=== PATIENT | female | born 1940 | race Caucasian/White ===

== ENCOUNTER 2017-07-24 14:46 | Outpatient (POV) | payer MEDICARE, BC, SELFPAY | END 2017-07-24 15:24 | disposition home or self-care (01) | PROVIDERS: Visit Provider Podiatrist | DX: M76.822 Posterior tibial tendinitis, left leg (principal) | CPT/HCPCS: 99212 ==

== ENCOUNTER → 2017-08-28 10:03 | Outpatient (POV) | payer MEDICARE, BC, SELFPAY ==
--- NOTE | 2017-08-28 10:47 | HMH.PAINSOAP ---
[facility] Pain Management SOAP Note Subjective:: This patient is a pleasant 77-year-old white female who we are seeing for neck pain and low back pain with radicular symptoms and previous C3 through C5 ACDF in June 2016. She had a lumbar epidural steroid injection which is helped her tremendously. Her low back is doing very well. She is also on diclofenac 75 mg twice a day which is helping. She does have some increasing neck pain with radicular symptoms. She has seen her neurosurgeon, Dr. Alvarez concerning her neck pain with radiculopathy. It seems that she has a C8 radiculopathy and he suggested a C7-T1 epidural steroid injection. Most of her pain is on the right. We will schedule her for a C7-T1 epidural steroid injection to see if this helps her symptoms. Objective:: Alert and oriented ?3 in no acute distress. Motor strength of the upper extremities is 4 out of 5. There is no gross sensory deficit. Motor strength of the lower extremities is 5/5. There is no gross sensory deficit. Patient does have a normal gait. Assessment:: Degenerative disc disease of lumbar spine with lumbar radiculopathy symptoms. Postlaminectomy syndrome of the cervical spine with previous ACDF C3-C5. Degenerative disc disease of cervical spine with cervical radiculopathy symptoms to the right Plan:: We will seek approval and plan on C7-T1 epidural steroid injection. Most of her pain is on the right so we will direct this towards her right. We will follow-up with her after this injection to see if this helps her symptoms.
[2017-08-28 11:36] VITALS: BP 140/92; PULSE 70; RESP 18; O2SAT 93; BMI 25.9
== END ==
PROVIDERS: PCP Family Medicine; Visit Provider Anesthesiology
DX: M51.16 Intervertebral disc disorders with radiculopathy, lumbar region (principal); M50.10 Cervical disc disorder with radiculopathy, unspecified cervical region
CPT/HCPCS: 99212

== ENCOUNTER → 2017-08-30 10:29 | Outpatient (POV) | payer MEDICARE, BC, SELFPAY | PROVIDERS: Visit Provider Dermatology | DX: Z00.00 Encounter for general adult medical examination without abnormal findings (principal) ==

== ENCOUNTER 2017-09-04 15:10 | Day surgery (SDC) | payer MEDICARE, BC, SELFPAY ==
[2017-09-04 16:00] VITALS: BP 143/70; PULSE 72; RESP 18; TEMP 36.3; O2SAT 94
[2017-09-04 16:07] VITALS: BP 156/96; PULSE 86; RESP 20
[2017-09-04 16:11] VITALS: BP 165/97; PULSE 69; RESP 20
--- NOTE | 2017-09-04 16:11 | HMH.PMPROC ---
- Procedure Date: 09/04/17 Time: 16:11 Anesthesiologist:: Stuart Contreras CRNA Complications:: None Pre-procedure Diagnosis:: Disc the cervical spine multiple levels. Cervical postlaminectomy syndrome Post-procedure Diagnosis:: Same Indications for Procedure:: Very pleasant 77-year-old white female that comes her procedure clinic today for her initial cervical epidural steroid injection at the C7-T1 level. Patient is status post anterior cervical discectomy and fusion. She complains of right arm and hand radicular symptoms. Cervical neck pain. Procedure Details:: Procedure:Cervical epidural steroid injection Informed consent was obtained and the risks and benefits of the procedure were explained to the patient. The patient was taken to the procedure room and noninvasive monitors placed, including noninvasive blood pressure cuff and pulse oximeter. The neck was prepped using Betadine as a cleansing solution. The C6-C7 interspace was palpated. The skin and subcutaneous tissues were anesthetized using lidocaine 1.5% and a 25-gauge needle. After this an 18-gauge Touhy epidural needle was placed into the C6-C7 interspace and advanced using loss of resistance and fluoroscopy guidance to air until the epidural space was encountered. After confirmation of needle placement in the epidural space, a solution containing lidocaine 1.5%, 4 mL and Depo-Medrol 80 mg was incrementally injected into the cervical epidural space.~ The patient tolerated the procedure well with no complications. The patient was observed in the Pain Clinic and then discharged home neurologically intact. Plan and Disposition:: Patient was reevaluated 10 minutes post procedure. She is doing very well.
[2017-09-04 16:28] VITALS: BP 149/83; PULSE 70; RESP 18; O2SAT 97
--- NOTE | 2017-09-05 12:35 | PC.NURSE ---
Called in Gabapentin 100mg PO QHS with 2 refills to [facility]
== END 2017-09-04 16:29 | disposition home or self-care (01) ==
LOC: SC.PAINP 15:12
PROVIDERS: PCP Family Medicine; Visit Provider Nurse Anesthetist, Certified Registered
DX: M96.1 Postlaminectomy syndrome, not elsewhere classified (principal); M79.601 Pain in right arm; M79.641 Pain in right hand; M54.2 Cervicalgia
CPT/HCPCS: 62321; J1040; Q9966

== ENCOUNTER → 2017-10-08 13:45 | Outpatient (POV) | payer MEDICARE, BC, SELFPAY ==
[2017-10-08 13:53] VITALS: BP 154/79; PULSE 70; RESP 18; O2SAT 95; BMI 25.7
--- NOTE | 2017-10-08 14:39 | HMH.PAINSOAP ---
[facility] Pain Management SOAP Note Subjective:: Patient is a pleasant 77-year-old white female who presents today for follow-up after her cervical epidural steroid injection. Patient did have some relief with this however she still having numbness and tingling in her right hand. Patient currently taking gabapentin 100 mg daily. Patient has been doing cervical traction however has been waiting until she follows up with her surgeon to continue this. Patient is currently on an anti-inflammatory. She rates her pain today 6 out of 10. Patient has also been receiving bursa injections for her left hip from Dr. Loo. She states this has not been helping her. We discussed the patient's multiple sources of pain. She has been hurting in her neck, her right arm, her back, and her left SI and left hip. We discussed which pain we wanted to tackle first. We decided that we would do another lumbar epidural steroid injection. She had 80% relief of the back pain after her last injection. Patient describes her pain is achy. Patient has decreased her level of activity. She has not been bowling and golfing recently. Patient would like to get back into this. Patient has had no side effects to gabapentin. Objective:: Physical Exam General: Alert and oriented x3, no acute distress, pleasant and cooperative, [on room air] Lungs: Resps E/U, Symmetrical chest expansion Musculoskeletal: Flexion and extension of lumbar spine somewhat guarded secondary to pain, deep tendon reflexes normal, strength in upper and lower extremities [5/5], slightly antalgic gait noted Neurological: speech clear, testing shaking shipping equal, no gross sensory deficits Assessment:: Degenerative disc disease of cervical spine multiple levels, cervical postlaminectomy syndrome, degenerative disc disease of the lumbar spine, left hip bursitis, left sacroiliitis Plan:: Patient and I discussed options moving forward. Patient would like to do a lumbar epidural steroid injection at this time. We will schedule this. I believe that this is a good choice given the efficacy of the last injection. We will then discuss her hip pain moving forward. I have also spoke with her about increasing her gabapentin 100 mg to twice a day and as tolerated up to 3 times a day. We will discuss these medicine changes at her next visit. Patient has been prescribed a controlled substance after being counseled on the medication, medication safety, and possible side effects. ENRIQUE report has been obtained and reviewed prior to prescription and found to be appropriate. Opioid contract was reviewed and signed by the patient, and that they have agreed to all of the terms set forth by our compliance program. This note was dictated using voice recognition software and may include errors and omissions
--- NOTE | 2017-10-08 14:46 | P.CONS_ITS ---
[facility] Pain Management SOAP Note Subjective:: Patient is a pleasant 77-year-old white female who presents today for follow-up after her cervical epidural steroid injection. Patient did have some relief with this however she still having numbness and tingling in her right hand. Patient currently taking gabapentin 100 mg daily. Patient has been doing cervical traction however has been waiting until she follows up with her surgeon to continue this. Patient is currently on an anti-inflammatory. She rates her pain today 6 out of 10. Patient has also been receiving bursa injections for her left hip from Dr. Loo. She states this has not been helping her. We discussed the patient's multiple sources of pain. She has been hurting in her neck, her right arm, her back, and her left SI and left hip. We discussed which pain we wanted to tackle first. We decided that we would do another lumbar epidural steroid injection. She had 80% relief of the back pain after her last injection. Patient describes her pain is achy. Patient has decreased her level of activity. She has not been bowling and golfing recently. Patient would like to get back into this. Patient has had no side effects to gabapentin. Objective:: Physical Exam General: Alert and oriented x3, no acute distress, pleasant and cooperative, [ on room air] Lungs: Resps E/U, Symmetrical chest expansion Musculoskeletal: Flexion and extension of lumbar spine somewhat guarded secondary to pain, deep tendon reflexes normal, strength in upper and lower extremities [5/5], slightly antalgic gait noted Neurological: speech clear, weapons designer equal, no gross sensory deficits Assessment:: Degenerative disc disease of cervical spine multiple levels, cervical postlaminectomy syndrome, degenerative disc disease of the lumbar spine, left hip bursitis, left sacroiliitis Plan:: Patient and I discussed options moving forward. Patient would like to do a lumbar epidural steroid injection at this time. We will schedule this. I believe that this is a good choice given the efficacy of the last injection. We will then discuss her hip pain moving forward. I have also spoke with her about increasing her gabapentin 100 mg to twice a day and as tolerated up to 3 times a day. We will discuss these medicine changes at her next visit. Patient has been prescribed a controlled substance after being counseled on the medication, medication safety, and possible side effects. ENRIQUE report has been obtained and reviewed prior to prescription and found to be appropriate. Opioid contract was reviewed and signed by the patient, and that they have agreed to all of the terms set forth by our compliance program. This note was dictated using voice recognition software and may include errors and omissions
--- NOTE | 2017-10-24 11:26 | PC.PHONENOTE ---
called in Rx for Gabapentin 100mg TID with 2 refills to [facility].
== END ==
PROVIDERS: PCP Family Medicine; Visit Provider Clinical Nurse Specialist Family Health
DX: M54.12 Radiculopathy, cervical region (principal); M51.36 Other intervertebral disc degeneration, lumbar region; M46.1 Sacroiliitis, not elsewhere classified
CPT/HCPCS: 99212

== ENCOUNTER 2017-11-02 12:44 | Day surgery (SDC) | payer MEDICARE, BC, SELFPAY ==
[2017-11-02 13:18] VITALS: BP 136/67; PULSE 69; TEMP 36.4; O2SAT 91; BMI 26.1
[2017-11-02 13:46] VITALS: BP 144/90; PULSE 70; RESP 18
[2017-11-02 13:48] VITALS: BP 151/79; PULSE 78; RESP 16
--- NOTE | 2017-11-02 13:50 | HMH.PMPROC ---
- Procedure Date: 11/02/17 Time: 13:50 Anesthesiologist:: Naldo Riddle MD Complications:: None Pre-procedure Diagnosis:: Degenerative disc disease of lumbar spine with lumbar radiculopathy symptoms Post-procedure Diagnosis:: same Indications for Procedure:: This patient is a pleasant 77-year-old white female who we are treating for low back pain and neck pain with cervical and lumbar radiculopathy symptoms. She has some increasing pain in her low back radiating to her left hip. She has received previous bursa injections from Dr. Loo which have not helped. She has benefited previously from epidural injections. We will do a lumbar epidural steroid injection today to see if this will give her some relief of her pain symptoms. Procedure Details:: Lumbar epidural steroid injection under fluoroscopy informed consent was obtained and the risk and benefits of the procedure was explained to the patient. The patient was taken to the procedure room. The patient was placed prone on the procedure table. The patient was prepped and draped in sterile fashion. C-arm fluoroscopy was used to view the lumbar spine. Skin and subcutaneous tissues were anesthetized using lidocaine. I placed an 18-gauge epidural needle and advanced into the L4-L5 interspace using fluoroscopic guidance and [id number] to air. After confirmation of needle placement in the epidural space with dye I injected 2 mL of lidocaine 1.5% with Depo-Medrol 80 mg. Patient tolerated the procedure well with no complications. Plan and Disposition:: We will follow-up with her in 2 weeks. We will reevaluate her symptoms at that time.
--- NOTE | 2017-11-02 13:54 | P.PCN_ITS ---
- Procedure Date: 11/02/17 Time: 13:50 Anesthesiologist:: Naldo Riddle MD Complications:: None Pre-procedure Diagnosis:: Degenerative disc disease of lumbar spine with lumbar radiculopathy symptoms Post-procedure Diagnosis:: same Indications for Procedure:: This patient is a pleasant 77-year-old white female who we are treating for low back pain and neck pain with cervical and lumbar radiculopathy symptoms. She has some increasing pain in her low back radiating to her left hip. She has received previous bursa injections from Dr. Loo which have not helped. She has benefited previously from epidural injections. We will do a lumbar epidural steroid injection today to see if this will give her some relief of her pain symptoms. Procedure Details:: Lumbar epidural steroid injection under fluoroscopy informed consent was obtained and the risk and benefits of the procedure was explained to the patient. The patient was taken to the procedure room. The patient was placed prone on the procedure table. The patient was prepped and draped in sterile fashion. C-arm fluoroscopy was used to view the lumbar spine. Skin and subcutaneous tissues were anesthetized using lidocaine. I placed an 18-gauge epidural needle and advanced into the L4-L5 interspace using fluoroscopic guidance and [id number] to air. After confirmation of needle placement in the epidural space with dye I injected 2 mL of lidocaine 1.5 % with Depo-Medrol 80 mg. Patient tolerated the procedure well with no complications. Plan and Disposition:: We will follow-up with her in 2 weeks. We will reevaluate her symptoms at that time.
[2017-11-02 14:00] VITALS: BP 148/72; PULSE 74; RESP 18; TEMP 36.4; O2SAT 93
== END 2017-11-02 14:00 | disposition home or self-care (01) ==
LOC: SC.PAINP 12:46
PROVIDERS: PCP Family Medicine; Visit Provider Anesthesiology
DX: M51.16 Intervertebral disc disorders with radiculopathy, lumbar region (principal)
CPT/HCPCS: 62323; J1040; Q9966

== ENCOUNTER → 2017-11-19 14:00 | Outpatient (POV) | payer MEDICARE, BC, SELFPAY ==
[2017-11-19 14:14] VITALS: BP 112/61; PULSE 81; RESP 18; TEMP 36.7; O2SAT 100; BMI 25.9
--- NOTE | 2017-11-19 16:39 | HMH.PAINSOAP ---
[facility] Pain Management SOAP Note Subjective:: Is a pleasant 77-year-old white female who we are treating for low back pain and neck pain with both cervical and lumbar radiculopathy symptoms. Patient is following up after lumbar epidural steroid injection. She had few days relief however she had no long-term benefit from it. Patient's pain mainly in her left side at this time her hip and down her leg. Patient is a very active person is wanting to become more functional so she can continue gardening and golfing. Patient pain a 6 out of 10 today. Patient states that it is achy and sharp at times. She does have some numbness in her left leg at times. ROS General: no recent weight change, no fever, no sleep disturbances Respiratory: no cough, no shortness of air, no recurring pulmonary infections Cardiovascular/Peripheral Vascular: No chest pain, No palpitations, no edema, no shortness of breath. Gastrointestinal: no incontinence, normal bowel movements reported Genitourinary: no incontinence Musculoskeletal: Back pain, left leg pain, left hip pain Psychiatric: normal mood/ affect, [denies depression], [denies anxiety] Neurological: [denies weakness in extremities], [denies balance issues] Objective:: Physical Exam General: Alert and oriented x3, no acute distress, pleasant and cooperative, [on room air] Lungs: Resps E/U, Symmetrical chest expansion, Eyes: PERRL Musculoskeletal: Flexion and extension of lumbar spine somewhat guarded secondary to pain, deep tendon reflexes normal, strength in upper and lower extremities [5/5], nightly antalgic gait noted, positive Elisabeth's test on the left side, extreme point tenderness over left SI joint. Neurological: speech clear, fingerprint clerk equal, no gross sensory deficits Assessment:: Sacroiliitis, degenerative disc disease of the lumbar spine with lumbar radiculopathy symptoms, degenerative disc disease of the cervical spine with cervical radiculopathy symptoms. Plan:: Last visit patient was increased from 100 mg gabapentin at night to 100 mg gabapentin 3 times a day. Patient states that this is helped her pain significantly. She is having better use of her right arm. I will order a left SI joint injection for this patient. I believe that this may be beneficial for her. I am hoping to get some long-term pain relief for her so she can continue with her active lifestyle. Patient and I also talked about pain pump and neuro stimulation if this injection does not work. I will follow-up with this patient after her injection and we will reassess her symptoms at that time. Patient's tried and failed physical therapy, home stretching routine, anti-inflammatories, medicines. This note was dictated using voice recognition software may contain errors or omissions
--- NOTE | 2017-11-19 16:42 | P.CONS_ITS ---
[facility] Pain Management SOAP Note Subjective:: Is a pleasant 77-year-old white female who we are treating for low back pain and neck pain with both cervical and lumbar radiculopathy symptoms. Patient is following up after lumbar epidural steroid injection. She had few days relief however she had no long-term benefit from it. Patient's pain mainly in her left side at this time her hip and down her leg. Patient is a very active person is wanting to become more functional so she can continue gardening and golfing. Patient pain a 6 out of 10 today. Patient states that it is achy and sharp at times. She does have some numbness in her left leg at times. ROS General: no recent weight change, no fever, no sleep disturbances Respiratory: no cough, no shortness of air, no recurring pulmonary infections Cardiovascular/Peripheral Vascular: No chest pain, No palpitations, no edema, no shortness of breath. Gastrointestinal: no incontinence, normal bowel movements reported Genitourinary: no incontinence Musculoskeletal: Back pain, left leg pain, left hip pain Psychiatric: normal mood/ affect, [denies depression], [denies anxiety] Neurological: [denies weakness in extremities], [denies balance issues] Objective:: Physical Exam General: Alert and oriented x3, no acute distress, pleasant and cooperative, [ on room air] Lungs: Resps E/U, Symmetrical chest expansion, Eyes: PERRL Musculoskeletal: Flexion and extension of lumbar spine somewhat guarded secondary to pain, deep tendon reflexes normal, strength in upper and lower extremities [5/5], nightly antalgic gait noted, positive Elisabeth's test on the left side, extreme point tenderness over left SI joint. Neurological: speech clear, administrative library assistant equal, no gross sensory deficits Assessment:: Sacroiliitis, degenerative disc disease of the lumbar spine with lumbar radiculopathy symptoms, degenerative disc disease of the cervical spine with cervical radiculopathy symptoms. Plan:: Last visit patient was increased from 100 mg gabapentin at night to 100 mg gabapentin 3 times a day. Patient states that this is helped her pain significantly. She is having better use of her right arm. I will order a left SI joint injection for this patient. I believe that this may be beneficial for her. I am hoping to get some long-term pain relief for her so she can continue with her active lifestyle. Patient and I also talked about pain pump and neuro stimulation if this injection does not work. I will follow-up with this patient after her injection and we will reassess her symptoms at that time. Patient's tried and failed physical therapy, home stretching routine, anti- inflammatories, medicines. This note was dictated using voice recognition software may contain errors or omissions
== END ==
PROVIDERS: PCP Family Medicine; Visit Provider Clinical Nurse Specialist Family Health
DX: M54.16 Radiculopathy, lumbar region (principal); M54.12 Radiculopathy, cervical region
CPT/HCPCS: 99212

== ENCOUNTER 2017-11-21 14:12 | Day surgery (SDC) | payer MEDICARE, BC, SELFPAY ==
[2017-11-21 14:39] VITALS: BP 151/77; PULSE 70; RESP 18; TEMP 36.9; O2SAT 96; BMI 25.9
[2017-11-21 15:23] VITALS: BP 174/88; PULSE 70; RESP 18
[2017-11-21 15:24] VITALS: BP 180/95; PULSE 88; RESP 20
--- NOTE | 2017-11-21 15:26 | P.PCN_ITS ---
- Procedure Date: 11/21/17 Time: 15:22 Anesthesiologist:: Naldo Riddle MD Complications:: None Pre-procedure Diagnosis:: Sacroiliitis Post-procedure Diagnosis:: Same Indications for Procedure:: This patient is a pleasant 77-year-old white female who we are treating for left -sided hip pain and low back pain with lumbar radicular symptoms. She did well with her previous lumbar epidural steroid injection. Now her pain is concentrated over the left hip. She is tender over the left SI joint. She does have a positive Elisabeth's test on left side. We will do left SI joint injection under fluoroscopy today. Procedure Details:: Left SI joint injection under fluoroscopy Informed consent was obtained and the risks and benefits of the procedure was going to the patient. Patient was taken to the procedure room. Patient was placed prone on the procedure table. The left hip was prepped using ChloraPrep. The skin and subcutaneous tissues were anesthetized using lidocaine. I placed a 22-gauge spinal needle into the inferior aspect of the left SI joint. Needle placement was confirmed with dye. After this we injected 5 mL bupivacaine 0.25% and Depo-Medrol 40 mg into the left SI joint. The patient tolerated the procedure well with no complication. Plan and Disposition:: We will follow-up with her in 2 weeks. We will reevaluate her symptoms at that time.
[2017-11-21 16:51] VITALS: BP 156/79; PULSE 81; RESP 16; O2SAT 93
== END 2017-11-21 15:28 | disposition home or self-care (01) ==
LOC: SC.PAINP 14:14
PROVIDERS: PCP Family Medicine; Visit Provider Anesthesiology
DX: M46.1 Sacroiliitis, not elsewhere classified (principal)
CPT/HCPCS: 27096; G0260; J1040; Q9966

== ENCOUNTER → 2017-11-30 08:23 | Outpatient (CLI) | payer MEDICARE, BC, SELFPAY ==
--- NOTE | 2017-11-30 08:25 | US_ITS ---
US liver COMPARISON: CT scan abdomen pelvis 04/17/2016 HISTORY: Elevated liver enzymes TECHNIQUE: Targeted ultrasound] quadrant FINDINGS: The gallbladder surgically absent and has been for approximately 50 years. The liver is normal in size and appears grossly normal except for scattered areas of increased echogenicity suggesting fatty infiltration. The common bile duct is mildly dilated 5 to 7 mm. This is not unexpected this long after cholecystectomy. The right kidney measures 9.6 x 3.9 x 5.9 cm and shows a good cortical measure junction with no abnormality. IMPRESSION: Minimal scattered areas of fatty infiltration of liver, mildly dilated common bile duct but likely within normal limits for long-standing post cholecystectomy
== END ==
PROVIDERS: PCP Family Medicine; Visit Provider Family Medicine
DX: R94.5 Abnormal results of liver function studies (principal); K76.89 Other specified diseases of liver
CPT/HCPCS: 76705

== ENCOUNTER → 2017-12-11 09:56 | Outpatient (POV) | payer MEDICARE, BC, SELFPAY ==
[2017-12-11 10:25] VITALS: BP 140/69; PULSE 70; RESP 18; BMI 25.9
--- NOTE | 2017-12-11 12:57 | PC.PHONENOTE ---
called in Rx for Gabapentin 300mg TID with 2 refills and cancelled Rx for Gabapentin 100mg
--- NOTE | 2017-12-11 13:29 | HMH.PAINSOAP ---
[facility] Pain Management SOAP Note Subjective:: Patient is a pleasant 77-year-old white female who presents today for follow-up after SI joint injection. Patient did get some benefit however she is still having left hip pain. Patient is still on her gabapentin 100 mg 1 p.o. 3 times a day. Patient is doing well on this and states he is having no side effects. Patient and I had a long discussion about her history of physical therapy and home stretching, orthopedic visits along with other therapies that she is tried in the past. Patient and I had talked about nerve stimulation versus a pain pump at last visit. Patient is still considering this. ROS General: no recent weight change, no fever, no sleep disturbances Respiratory: no cough, no shortness of air, no recurring pulmonary infections Cardiovascular/Peripheral Vascular: No chest pain, No palpitations, no edema, no shortness of breath. Gastrointestinal: no incontinence, normal bowel movements reported Genitourinary: no incontinence Musculoskeletal: Back pain, left hip pain, leg pain Psychiatric: normal mood/ affect Neurological: [denies weakness in extremities], [denies balance issues] Objective:: Physical Exam General: Alert and oriented x3, no acute distress, pleasant and cooperative, [on room air] Lungs: Resps E/U, Symmetrical chest expansion, Eyes: PERRL Musculoskeletal: Flexion and extension of lumbar spine somewhat guarded secondary to pain, deep tendon reflexes normal, strength in upper and lower extremities [5/5], [abnormal gait noted] a positive straight leg test bilaterally at 30? Neurological: speech clear, home economics teacher equal, no gross sensory deficits Assessment:: Sacroiliitis, degenerative disc disease of the lumbar spine with lumbar radiculopathy symptoms, degenerative disc disease of the cervical spine with cervical radiculopathy symptoms Plan:: I gave the patient information on neuro stimulation along with intrathecal pain pump. Patient is to follow-up with me in 2 weeks to discuss this. I believe the patient would benefit from an intrathecal pain pump. I want to encourage her to be as active and functional for this possible. I believe that this would be helpful. We will also increase her gabapentin to 300 mg 1 p.o. 3 times daily. This note was dictated using voice recognition software and may contain errors or omissions
--- NOTE | 2017-12-11 13:32 | P.CONS_ITS ---
[facility] Pain Management SOAP Note Subjective:: Patient is a pleasant 77-year-old white female who presents today for follow-up after SI joint injection. Patient did get some benefit however she is still having left hip pain. Patient is still on her gabapentin 100 mg 1 p.o. 3 times a day. Patient is doing well on this and states he is having no side effects. Patient and I had a long discussion about her history of physical therapy and home stretching, orthopedic visits along with other therapies that she is tried in the past. Patient and I had talked about nerve stimulation versus a pain pump at last visit. Patient is still considering this. ROS General: no recent weight change, no fever, no sleep disturbances Respiratory: no cough, no shortness of air, no recurring pulmonary infections Cardiovascular/Peripheral Vascular: No chest pain, No palpitations, no edema, no shortness of breath. Gastrointestinal: no incontinence, normal bowel movements reported Genitourinary: no incontinence Musculoskeletal: Back pain, left hip pain, leg pain Psychiatric: normal mood/ affect Neurological: [denies weakness in extremities], [denies balance issues] Objective:: Physical Exam General: Alert and oriented x3, no acute distress, pleasant and cooperative, [ on room air] Lungs: Resps E/U, Symmetrical chest expansion, Eyes: PERRL Musculoskeletal: Flexion and extension of lumbar spine somewhat guarded secondary to pain, deep tendon reflexes normal, strength in upper and lower extremities [5/5], [abnormal gait noted] a positive straight leg test bilaterally at 30? Neurological: speech clear, prevention coordinator equal, no gross sensory deficits Assessment:: Sacroiliitis, degenerative disc disease of the lumbar spine with lumbar radiculopathy symptoms, degenerative disc disease of the cervical spine with cervical radiculopathy symptoms Plan:: I gave the patient information on neuro stimulation along with intrathecal pain pump. Patient is to follow-up with me in 2 weeks to discuss this. I believe the patient would benefit from an intrathecal pain pump. I want to encourage her to be as active and functional for this possible. I believe that this would be helpful. We will also increase her gabapentin to 300 mg 1 p.o. 3 times daily. This note was dictated using voice recognition software and may contain errors or omissions
== END ==
PROVIDERS: PCP Family Medicine; Visit Provider Clinical Nurse Specialist Family Health
DX: M54.12 Radiculopathy, cervical region (principal); M54.16 Radiculopathy, lumbar region
CPT/HCPCS: 99212

== ENCOUNTER → 2017-12-25 10:11 | Outpatient (POV) | payer MEDICARE, BC, SELFPAY ==
[2017-12-25 10:34] VITALS: BP 146/73; PULSE 70; RESP 18; TEMP 36.7; O2SAT 98; BMI 25.9
--- NOTE | 2017-12-25 10:55 | HMH.PAINSOAP ---
[facility] Pain Management SOAP Note Subjective:: Patient is a pleasant 77-year-old white female who presents today for follow-up. Patient currently on gabapentin 300 mg 1 p.o. 3 day. Patient states that this is been helpful for her. Patient states her pain is a 2 out of 10 today. Patient just got back from a long trip to [place]. Patient and I had a long discussion about her history of physical therapy home stretching, orthopedic visits and other therapies. Patient had given information on interventional therapy such as neurostimulator and pain pump however she would like to hold off on this until she has exhausted her gabapentin therapy. ROS General: no recent weight change, no fever, no sleep disturbances Respiratory: no cough, no shortness of air, no recurring pulmonary infections Cardiovascular/Peripheral Vascular: No chest pain, No palpitations, no edema, no shortness of breath. Gastrointestinal: no incontinence, normal bowel movements reported Genitourinary: no incontinence Musculoskeletal: Back pain, leg pain Psychiatric: normal mood/ affect, [denies depression], [denies anxiety] Neurological: [denies weakness in extremities], [denies balance issues] Objective:: Physical Exam General: Alert and oriented x3, no acute distress, pleasant and cooperative, [on room air] Lungs: Resps E/U, Symmetrical chest expansion, Eyes: PERRL Musculoskeletal: Flexion and extension of lumbar spine somewhat guarded secondary to pain, deep tendon reflexes normal, strength in upper and lower extremities [5/5], slightly antalgic gait noted Neurological: speech clear, director patient equal, no gross sensory deficits Assessment:: Sacroiliitis, degenerative disc disease of lumbar spine with lumbar radiculopathy symptoms, degenerative disc disease of the cervical spine with cervical radiculopathy Plan:: We will follow-up with this patient in 2 months. Patient is to continue on her gabapentin 300 mg 1 p.o. 3 times daily. Patient has been instructed to call the office if she has any issues prior to her visit. This note was dictated using voice recognition software and may contain errors or omissions
--- NOTE | 2017-12-25 10:58 | P.CONS_ITS ---
[facility] Pain Management SOAP Note Subjective:: Patient is a pleasant 77-year-old white female who presents today for follow- up. Patient currently on gabapentin 300 mg 1 p.o. 3 day. Patient states that this is been helpful for her. Patient states her pain is a 2 out of 10 today. Patient just got back from a long trip to [place]. Patient and I had a long discussion about her history of physical therapy home stretching, orthopedic visits and other therapies. Patient had given information on interventional therapy such as neurostimulator and pain pump however she would like to hold off on this until she has exhausted her gabapentin therapy. ROS General: no recent weight change, no fever, no sleep disturbances Respiratory: no cough, no shortness of air, no recurring pulmonary infections Cardiovascular/Peripheral Vascular: No chest pain, No palpitations, no edema, no shortness of breath. Gastrointestinal: no incontinence, normal bowel movements reported Genitourinary: no incontinence Musculoskeletal: Back pain, leg pain Psychiatric: normal mood/ affect, [denies depression], [denies anxiety] Neurological: [denies weakness in extremities], [denies balance issues] Objective:: Physical Exam General: Alert and oriented x3, no acute distress, pleasant and cooperative, [ on room air] Lungs: Resps E/U, Symmetrical chest expansion, Eyes: PERRL Musculoskeletal: Flexion and extension of lumbar spine somewhat guarded secondary to pain, deep tendon reflexes normal, strength in upper and lower extremities [5/5], slightly antalgic gait noted Neurological: speech clear, roll coating machine operator equal, no gross sensory deficits Assessment:: Sacroiliitis, degenerative disc disease of lumbar spine with lumbar radiculopathy symptoms, degenerative disc disease of the cervical spine with cervical radiculopathy Plan:: We will follow-up with this patient in 2 months. Patient is to continue on her gabapentin 300 mg 1 p.o. 3 times daily. Patient has been instructed to call the office if she has any issues prior to her visit. This note was dictated using voice recognition software and may contain errors or omissions
== END ==
PROVIDERS: PCP Family Medicine; Visit Provider Clinical Nurse Specialist Family Health
DX: M50.10 Cervical disc disorder with radiculopathy, unspecified cervical region; M51.16 Intervertebral disc disorders with radiculopathy, lumbar region
CPT/HCPCS: 99212

== ENCOUNTER → 2018-02-05 11:16 | Outpatient (POV) | payer MEDICARE, BC, SELFPAY ==
[2018-02-05 11:28] VITALS: BP 109/75; PULSE 78; RESP 18; O2SAT 99; BMI 26.6
--- NOTE | 2018-02-05 11:56 | HMH.PAINSOAP ---
[facility] Pain Management SOAP Note Subjective:: Patient is a pleasant 77-year-old white female who presents today for follow-up. Patient is currently on gabapentin 300 mg 1 p.o. 3 times daily. Patient would like to wean off of this. Patient states that she is having some excessive sleepiness. Patient and I discussed a weaning plan. Patient rates her pain 2 out of 10 today. Patient states she has been going to chiropractic therapist and has been doing extremely well. Patient would like to follow-up on an as-needed basis. ROS General: no recent weight change, no fever, no sleep disturbances Respiratory: no cough, no shortness of air, no recurring pulmonary infections Cardiovascular/Peripheral Vascular: No chest pain, No palpitations, no edema, no shortness of breath. Gastrointestinal: no incontinence, normal bowel movements reported Genitourinary: no incontinence Musculoskeletal: Back pain, leg pain Psychiatric: normal mood/ affect Neurological: [denies weakness in extremities], [denies balance issues] Objective:: Physical Exam General: Alert and oriented x3, no acute distress, pleasant and cooperative, [on room air] Lungs: Resps E/U, Symmetrical chest expansion, Eyes: PERRL Musculoskeletal: Flexion and extension of lumbar spine somewhat guarded secondary to pain, deep tendon reflexes normal, strength in upper and lower extremities [5/5], slightly antalgic gait noted Neurological: speech clear, sidehand equal, no gross sensory deficits Assessment:: Sacroiliitis, degenerative disc disease of the lumbar spine with lumbar radiculopathy symptoms, degenerative disc disease of the cervical spine and cervical radiculopathy Plan:: Patient and I discussed the gabapentin weaning schedule. Patient will slowly titrate off of her medication. We will follow-up with this patient on an as-needed basis. This note was dictated using voice recognition software and may contain errors or omissions
== END ==
PROVIDERS: PCP Family Medicine; Visit Provider Clinical Nurse Specialist Family Health
DX: M50.30 Other cervical disc degeneration, unspecified cervical region (principal); M51.16 Intervertebral disc disorders with radiculopathy, lumbar region
CPT/HCPCS: 99212

== ENCOUNTER → 2018-02-28 10:40 | Outpatient (POV) | payer MEDICARE, BC, SELFPAY | PROVIDERS: Visit Provider Dermatology | DX: Z00.00 Encounter for general adult medical examination without abnormal findings (principal) ==

== ENCOUNTER 2018-07-04 09:30 | Outpatient (RCR) | payer MEDICARE, BC, SELFPAY ==
--- NOTE | 2018-06-25 16:07 | HMH.PTOPEV ---
PT Outpatient Evaluation Rehab PT Outpatient Evaluation Start: 06/25/18 16:00 Freq: Status: Active Protocol: Document 06/25/18 16:00 [email or web address] (Rec: 06/25/18 16:07 BERNARD [id number]) Electronically Signed By Killian Saunders, PT 06/25/18 16:00 Outpatient Therapy Subjective History Subjective History This is the initial PT evaluation for Tess Hastings. Pt is a 78 y/o female referred to PT for c/o vertigo. Pt reports it started on 06/06 when she got out of bed at night to use the restroom. Pt reports she fell. Pt reports she saw PCP was given meclazine, antibiotics, and steroids. PT reports dizziness cleared up, but returned on 06/20. Chief Complaint Other Symptom Type Other Symptoms Relieved By Rest/Positioning Prior Functional Limitations None Current Functional Limitations Sleeping Walking Balance Symptom Description Intermittent Level of pain today (0-10) 0 Pain scale - at its best (0-10) 0 Pain scale - at its worst (0-10) 0 Balance Eval Chief Complaint vertigo Yes Did you feel dizzy, unsteady or faint? Yes Prior Functional Limitations Prior Functional [place] Level none Current Functional Limitations Comment rotation Hx of Falls Hx Falls Yes Number in last 6 months 1 Gait/Posture Asssessment General Gait Observation No Deviations/Normal Hip Observation in Gait Swing No Deviation Ankle/Foot Observation in Gait Swing No Deviation Ankle/Foot Observation in Gait Stance No Deviation Body Alignment Posture Relaxed Nystagmus Nystagmus Presence Positional Nystagmus Description Right Direction Geotropic Latency - Immediate Outpatient Therapy Assessment Impairments Problems/Impairmments Impaired Balance Impaired Self Care/Self Management Prognosis Rehab Potential Good Clinical Impression Consistent with Diagnosis Yes Short Term Goals Number of Weeks 2 Return to Recreational Activities Yes Improve Balance Yes Patient to be Ind w/ HEP 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
== END 2018-07-04 09:31 | disposition home or self-care (01) ==
LOC: PT 09:30
PROVIDERS: Visit Provider Nurse Practitioner Family
DX: H81.10 Benign paroxysmal vertigo, unspecified ear (principal)
CPT/HCPCS: 97140; 97163

== ENCOUNTER → 2018-09-03 14:23 | Outpatient (POV) | payer MEDICARE, BC, SELFPAY | PROVIDERS: Visit Provider Dermatology | DX: Z00.00 Encounter for general adult medical examination without abnormal findings (principal) ==

== ENCOUNTER → 2019-01-16 12:58 | Outpatient (CLI) | payer MEDICARE, BC, SELFPAY ==
--- NOTE | 2019-01-16 13:14 | XR_ITS ---
XR hip RT 2-3V w/pelvis HISTORY: Pain ITS.REASON: 2 views ORDERING PHYSICIAN: Patrica Michel MD PATIENT AGE: 78 years COMPARISON: None FINDINGS: No fracture or dislocation is evident. There are mild osteoarthritic changes of the right hip. No lytic or blastic change. IMPRESSION: Mild osteoarthritis of the right hip
--- NOTE | 2019-01-16 13:14 | XR_ITS ---
XR hip LT 2-3V w/pelvis HISTORY: Bilateral hip pain ITS.REASON: 2 views ORDERING PHYSICIAN: Patrica Michel MD FINDINGS: There are mild osteoarthritic changes of left hip. No fracture or dislocation. No lytic or blastic change. Mild sclerosis noted of left SI joint IMPRESSION: Mild osteoarthritis of left hip not significantly changed from 11/09/2016
== END ==
PROVIDERS: PCP Family Medicine; Visit Provider Orthopaedic Surgery
DX: M25.551 Pain in right hip (principal); M25.552 Pain in left hip
CPT/HCPCS: 73502

== ENCOUNTER → 2019-02-11 10:50 | Outpatient (POV) | payer MEDICARE, BC, SELFPAY | PROVIDERS: Visit Provider Internal Medicine | DX: Z00.00 Encounter for general adult medical examination without abnormal findings (principal) ==

== ENCOUNTER → 2019-03-07 11:48 | Outpatient (CLI) | payer MEDICARE, BC, SELFPAY ==
--- NOTE | 2019-03-07 11:53 | CT_ITS ---
CT chest wo con HISTORY: COPD, increasing shortness of air, follow-up ITS.REASON: SHORTNESS OF BREATH ON EXERTION ORDERING PHYSICIAN: Ankit Salinas MD PATIENT AGE: 78 years COMPARISON: 07/16/1717 Technique: Axial images were obtained. Sagittal, and coronal reformatted images are also generated and reviewed. All CT scans at the facility use one or more dose reduction, viz: automated exposure control, ma/kV adjustment per patient size (including targeted exams where dose is matched to indication, i.e. head), or iterative reconstruction technique. FINDINGS: Prior anterior cervical disc fusion. Artifact is present from cardiac pacemaker device. There is mild ectasia of ascending aorta at 3.9 cm. Coronary artery calcifications are noted. Centrilobular emphysema . Partially calcified granuloma is present in the lingula. No lobar consolidation or collapse. No central obstructing lesions. A 12 mm calcific mass is once again noted in the left aspect of the spinal canal at the T11-T12 region. This does not appear significantly changed. MRI without and with contrast may be of further value. IMPRESSION: 1. Overall no change with no acute finding. 2. Centrilobular emphysema. 3. Coronary artery calcification. 4. No change in the intradural calcific mass at the T11-T12 region
== END ==
PROVIDERS: PCP Internal Medicine; Visit Provider Internal Medicine
DX: R06.02 Shortness of breath (principal)
CPT/HCPCS: 71250; 94060; 94618; 94726; 94729

== ENCOUNTER → 2019-03-18 10:31 | Outpatient (POV) | payer MEDICARE, BC, SELFPAY | PROVIDERS: Visit Provider Dermatology | DX: Z00.00 Encounter for general adult medical examination without abnormal findings (principal) ==

== ENCOUNTER 2019-04-15 13:00 | Outpatient (RCR) | payer MEDICARE, BC, SELFPAY ==
--- NOTE | 2019-01-23 11:35 | HMH.PTOPEV ---
PT Outpatient Evaluation Rehab PT Outpatient Evaluation Start: 01/23/19 09:57 Freq: Status: Active Protocol: Document 01/23/19 10:48 DANIEL (Rec: 01/23/19 11:33 DANIEL [id number]) Electronically Signed By Johan Shields, PT 01/23/19 10:48 Outpatient Therapy Subjective History Subjective History Patient is a 78 year old female presenting to outpatient PT with reports of bilateral hip pain L>R starting 04/2017. Pt has completed multiple episodes of PT, had multiple injections, massage therapy and chiropractic work that helped but provided minimal relief. Most recent diagnostics indicate mild hip OA. She previously had a CT scan that indicated T12 meningioma. Pt denies any lumbar spine disc bulges. Comorbidities include pacemaker, COPD, R rotator cuff repair, HTN, HLD. Chief Complaint Pain Symptom Type Ache,Sharp Symptoms Relieved By Rest/Positioning,Prescription Meds Symptoms Aggravated By Sitting,Standing,Bending/ Stooping,Physical Activity, Walking,Lifting Prior Functional Limitations None Current Functional Limitations Lifting,Housework,Standing, Sitting,Squatting,Recreation Activity,Walking,Stairs, Balance,Bending/Stooping Symptom Description Intermittent Level of pain today (0-10) 0 Pain scale - at its best (0-10) 0 Pain scale - at its worst (0-10) 7 Hip/Knee Eval Gait Observation General Gait Pattern Observation Antalgic Gait,Decrease Weight Bear (L) Assistive Device Assistive Devices Straight Cane Palpation Tenderness left Knee Palpation Overall Comment Greater trochanter bilaterally L>R 3/4 Hip Palpation Findings Tenderness MMT right Hip Flexion Strength Grade 4- Good- Hip Abduction Strength Grade 4- Good- Hip Adduction Strength Grade 4- Good- Hip Extension Strength Grade 4- Good- Hip External Rotation Strength Grade 3+ Fair+ Hip Internal Rotation Strength Grade 3+ Fair+ left Hip Flexion Strength Grade 4- Good- Hip Abduction Strength Grade 3+ Fair+ Hip Adduction Strength Grade 4- G
== END 2019-04-15 13:05 | disposition home or self-care (01) ==
LOC: PT 13:00
PROVIDERS: Visit Provider Orthopaedic Surgery
DX: M70.61 Trochanteric bursitis, right hip (principal); M70.62 Trochanteric bursitis, left hip
CPT/HCPCS: 97010; 97012; 97014; 97035; 97110; 97140; 97163; G0283

== ENCOUNTER → 2019-05-06 09:53 | Outpatient (POV) | payer MEDICARE, BC, SELFPAY | PROVIDERS: Visit Provider Internal Medicine | DX: Z00.00 Encounter for general adult medical examination without abnormal findings (principal) ==

== ENCOUNTER → 2019-09-23 10:48 | Outpatient (POV) | payer MEDICARE, BC, SELFPAY | PROVIDERS: Visit Provider Dermatology | DX: Z00.00 Encounter for general adult medical examination without abnormal findings (principal) ==

== ENCOUNTER → 2020-03-30 12:43 | Outpatient (CLI) | payer MEDICARE, BC, SELFPAY ==
--- NOTE | 2020-03-30 12:54 | XR_ITS ---
PROCEDURE: XR LUMBAR SPINE MIN 4V CLINICAL INDICATION: BACK PAIN COMPARISON: CT LSWO CT LUMBAR SPINE W/O CONTRAST from 05/10/2017 FINDINGS: There is lumbar scoliosis convex left. Multilevel degenerative disc disease is present from L1-S1. Endplate sclerosis is present at L2-L3 and L3-L4. Facet arthritic changes are present at L4-L5 and S1. No acute fracture or dislocation. There is 3 mm anterolisthesis of L5 on S1. There is generalized vascular calcification. There is sclerosis of the SI joints bilaterally at L5-S1 left greater than right and there are mild degenerative changes of the hips. Sutures are present in the mid abdominal region. Other findings:None. IMPRESSION: Scoliosis with lumbar spondylosis as described above. Multilevel degenerative changes. Dictated b Tushar Siegel MD 03/30/2020 14:17 Tushar Siegel MD in [place] 03/30/2020 14:17
== END ==
PROVIDERS: PCP Family Medicine; Visit Provider Family Medicine
DX: M54.5 Low back pain (principal)
CPT/HCPCS: 72110

== ENCOUNTER → 2020-04-13 15:09 | Outpatient (CLI) | payer MEDICARE, BC, SELFPAY ==
--- NOTE | 2020-04-13 | CT_ITS ---
PROCEDURE: CT LUMBAR SPINE WO CON CLINICAL HISTORY: LBP Low back pain x several weeks, some left leg pain Xrays on pacs Prior 05/10/17 COMPARISON: CT LSWO CT LUMBAR SPINE W/O CONTRAST from 05/10/2017 TECHNIQUE: Axial images obtained with sagittal and coronal reformats. All CT scans at the facility use one or more dose reduction, viz: automated exposure control, ma/kV adjustment per patient size (including targeted exams where dose is matched to indication, i.e. head), or iterative reconstruction technique. FINDINGS: There is normal alignment. No acute fracture or dislocation is evident. No lytic or blastic change. Multilevel lumbar spondylosis is present and described below. There is mild levoscoliosis T11-T12: 10 mm well-circumscribed calcific density in the left paracentral aspect of the thecal sac at the T11-T12 area which is overall not significantly changed. There is mild degenerative disc disease at T11-T12 T12-L1: Mild degenerative disc disease with a Schmorl's node along the inferior endplate of T12 L1-L2: Mild degenerative disc disease with Schmorl's node along the inferior endplate of L1. Mild left-sided facet hypertrophy with mild left foraminal narrowing. L2-L3: Degenerative disc disease. Minimal retrolisthesis of L2 of 2 mm. Bulging disc with concentric calcification/endplate hypertrophy with bilateral lateral recess and foraminal narrowing not significantly changed. Prominent right-sided osteophyte is present which has increased in size from 05/10/2017 extending more lateral on today's exam L3-L4: Degenerative disc disease with bulging disc which is eccentric toward the right with right lateral endplate osteophytes and right lateral recess and foraminal narrowing. Not significantly changed. L4-5: Degenerative disc disease with bulging disc and endplate osteophytes with facet and ligamentum hypertrophy with bilateral lateral recess and foraminal narrowing. The facet hypertrophic changes are slightly greater with slightly greater lateral recess narrowing L5-S1: Degenerative disc disease with facet and ligamentum hypertrophy. 3 mm anterolisthesis of L5. Mild bulging disc. Mild bilateral foraminal narrowing. The IMPRESSION: 1. Multilevel lumbar spondylosis with degenerative disc disease, bulging disc, with facet and ligamentum hypertrophy. This results in lateral recess and foraminal narrowing. Please see above for detailed description at each level. 2. 1 cm intrathecal left paracentral calcified lesion at T11-T12 not significantly changed possibly due to a meningioma Dictated by: Tushar Siegel MD 04/14/2020 08:55 Tushar Siegel MD in [facility] 04/14/2020 08:55
== END ==
PROVIDERS: PCP Family Medicine; Visit Provider Family Medicine
DX: M54.5 Low back pain (principal)
CPT/HCPCS: 72131

== ENCOUNTER 2020-06-18 16:00 | Outpatient (RCR) | payer MEDICARE, BC, SELFPAY | END 2020-06-18 16:05 | disposition home or self-care (01) | LOC: PT 16:00 | PROVIDERS: PCP Family Medicine; Visit Provider Neurological Surgery | DX: D32.1 Benign neoplasm of spinal meninges (principal); M54.5 Low back pain; M54.6 Pain in thoracic spine | CPT/HCPCS: 20561; 97010; 97033; 97035; 97110; 97140; 97163 ==

== ENCOUNTER → 2020-08-31 15:44 | Outpatient (CLI) | payer MEDICARE, BC, SELFPAY | PROVIDERS: PCP Family Medicine; Visit Provider Family Medicine | DX: Z20.828 Contact with and (suspected) exposure to other viral communicable diseases (principal); U07.1 COVID-19 | CPT/HCPCS: U0003 ==

== ENCOUNTER 2020-09-06 05:54 | Inpatient (IN) | payer MEDICARE, BC, SELFPAY ==
[2020-09-06] VITALS (14 sets, daily range): BP systolic 129–158; BP diastolic 68–90; PULSE 64–74; RESP 16–22; TEMP 36–36.9; O2SAT 85–99; BMI 26.1; BMI 24.9
--- NOTE | 2020-09-06 06:28 | XR_ITS ---
PROCEDURE: XR CHEST PORTABLE CLINICAL HISTORY: soa Shortness of air, positive Covid19 COMPARISON: CR CXR CHEST(2 VIEWS-NOT PORTABLE) from 04/21/2014 CR CXR2 CHEST-AP VIEW ONLY from 02/22/2015 CR CXR CHEST(2 VIEWS-NOT PORTABLE) from 11/25/[address] ANGIO CHEST from 09/06/2020 FINDINGS: Cardiac pacemaker device is present from right subclavian approach. There is a right atrial and right ventricular lead. The leads are looped upon themselves proximally The lungs are clear without infiltrates, suspicious nodules, or pleural effusions. No acute bony abnormalities. IMPRESSION: No acute findings. Dictated by: Tushar Siegel MD 09/06/2020 10:54 Tushar Siegel MD in [facility] 09/06/2020 10:54
--- NOTE | 2020-09-06 06:28 | CT_ITS ---
PROCEDURE: CT ANGIO CHEST CLINCIAL INDICATION: SOA Shortness of air, dyspnea, Covid19 positive COMPARISON: CT ABDPELW/O CT ABD PELVIS W/O CONTRAST from 04/17/[address] chest wo con from 03/07/2019 TECHNIQUE: IV Contrast: 70ML Isovue 370 Axial images obtained with sagittal and coronal reformats. All CT scans at the facility use one or more dose reduction, viz: automated exposure control, ma/kV adjustment per patient size (including targeted exams where dose is matched to indication, i.e. head), or iterative reconstruction technique. FINDINGS: HEART AND MEDIASTINAL STRUCTURES: No evidence of aortic aneurysm or dissection. No evidence of pulmonary embolus. 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 Convalescent follow-up may be of further value. There are mild fibrotic changes in the right lower lobe. BONY STRUCTURES: Degenerative changes thoracic spine UPPER ABDOMEN: Unremarkable. ADDITIONAL FINDINGS: The adrenal glands are enlarged bilaterally not significantly changed and may be due to adenomatous involvement IMPRESSION: 1. No evidence of pulmonary embolus. 2. COPD with centrilobular emphysema with nonspecific septal thickening in the right upper lobe which could be related to developing focal pulmonary fibrosis or superimposed bronchiolitis/pneumonitis on emphysematous changes. Dictated by: Tushar Siegel MD 09/06/2020 10:15 Tushar Siegel MD in [facility] 09/06/2020 10:15
[2020-09-06 06:43] LABS: Basophils % 0.7 % (0.1-2.0); Eosinophils # 0.2 K/mm3 (0.0-0.4); Eosinophils % 2.6 % (0.1-12.0); Hematocrit 38.5 % (37.0-47.0); Hemoglobin 13.4 g/dL (12.2-16.2); Mean Corpuscular HGB Conc 34.9 g/dL (31.8-35.4); Mean Corpuscular Hemoglobin 32.5 pg (27.0-31.2); Mean Corpuscular Volume 93.1 fl (81-99); Mean Platelet Volume 7.8 fl (7.4-10.4); Monocytes # 0.5 K/mm3 (0.1-1.0); Monocytes % 9.1 % (1.7-9.3); Neutrophils % 69.5 % (37.0-80.0); Platelet Count 237 K/mm3 (142-424); Red Blood Count 4.14 M/mm3 (4.20-5.40); Red Cell Distribution Width 13.1 % (11.5-17.5); White Blood Count 5.8 K/mm3 (4.8-10.8)
[2020-09-06 06:49] LABS: Alanine Aminotransferase 155 U/L (12-78); Albumin Level 4.1 g/dl (3.5-5.0); Albumin/Globulin Ratio 1.3 (1.1-1.8); Alkaline Phosphatase 141 U/L (38-126); Anion Gap 11.5 mEq/L (5-15); Aspartate Amino Transferase 79 U/L (14-36); Bilirubin,Total 0.5 mg/dl (0.2-1.3); Blood Urea Nitrogen 8 mg/dl (7-17); Carbon Dioxide 31 mmol/L (22.0-30.0); Chloride 89 mmol/L (98-107); Creatinine Clearance Estimated 50 mL/min (50-200); Estimated Glomerular Filt Rate 119 ml/min (>60); GFR (African American) 144 ML/MIN (>60); Globulin 3.2 g/dL (1.3-3.2); Glucose 115 mg/dl (74-100); Potassium 3.5 mmoL/L (3.5-5.1); Sodium 128 mmol/L (136-145); Total Protein,Serum 7.3 g/dl (6.3-8.2)
[2020-09-06 06:54] LABS: C-Reactive Protein 29.5 mg/L (0-4)
--- NOTE | 2020-09-06 07:00 | HMH.EDSOB ---
ED Disposition Clinical Impression: COVID-19 virus detected, Hypoxia Disposition: Admitted As Inpatient Condition on Discharge: Fair - Critical Care Critical Care Time: No Attestation: On 09/06/20, the high probability of a clinically significant, sudden or life threatening deterioration of the following system(s) required my full and direct attention, intervention and personal management. The time I documented below is in addition to time spent performing reported procedures but includes the following listed in this critical care notation. Medical Decision Making - Medical Records Medical records reviewed: Yes: I reviewed the patient's medical records. - Asael Inquiry Pt receiving controlled substance: No Vital Signs: 09/06/20 06:12 09/06/20 06:30 09/06/20 07:38 Temperature 97.9 F Temperature Source Oral Pulse Rate [Right] 70 70 70 Respiratory Rate 22 18 Blood Pressure [Right Arm] 139/78 143/81 H 155/90 H Blood Pressure Mean [Right Arm] 98 101 111 Blood Pressure Source [Right Arm] Automatic Cuff Automatic Cuff Automatic Cuff Blood Pressure Position [Right Arm] Sitting Supine Sitting 02 Sat by Pulse Oximetry 91 L 94 L 92 L Oxygen Delivery Method Room Air Nasal Cannula Room Air Oxygen Flow Rate (LPM) 2 09/06/20 07:55 09/06/20 07:57 09/06/20 08:27 Temperature Temperature Source Pulse Rate [Right] 71 70 Respiratory Rate 20 Blood Pressure [Right Arm] 158/78 H 130/72 Blood Pressure Mean [Right Arm] 104 91 Blood Pressure Source [Right Arm] Automatic Cuff Manual Cuff/ Doppler Blood Pressure Position [Right Arm] Sitting Sitting 02 Sat by Pulse Oximetry 85 L 99 95 Oxygen Delivery Method Room Air Nasal Cannula Nasal Cannula Oxygen Flow Rate (LPM) 2 2 09/06/20 08:49 Temperature Temperature Source Pulse Rate [Right] 70 Respiratory Rate 18 Blood Pressure [Right Arm] 130/72 Blood Pressure Mean [Right Arm] 91 Blood Pressure Source [Right Arm] Automatic Cuff Blood Pressure Position [Right Arm] Sitting 02 Sat by Pulse Oximetry 96 Oxygen Delivery Method Oxygen Flow Rate (LPM) - Lab Data Lab results reviewed: Yes: I reviewed the patient's lab results. Lab Results 09/06/20 06:17: WBC 5.8, RBC 4.14 L, Hgb 13.4, Hct 38.5, MCV 93.1, MCH 32.5 H, MCHC 34.9, RDW 13.1, Plt Count 237, MPV 7.8, Neut % (Auto) 69.5, Lymph % (Auto) 18.0, [place] % (Auto) 9.1, Eos % (Auto) 2.6, Baso % (Auto) 0.7, Neut # (Auto) 4.0, Lymph # (Auto) 1.0, [place] # (Auto) 0.5, Eos # (Auto) 0.2, Baso # (Auto) 0.0, ESR 34 H 09/06/20 06:17: Sodium 128 L, Potassium 3.5, Chloride 89 L, Carbon Dioxide 31 H, Anion Gap 11.5, BUN 8, Creatinine 0.50 L, Estimated Creat Clear 50, Estimated GFR 119, Est GFR ( Amer) 144, Glucose 115 H, Calcium 9.0, Total Bilirubin 0.5, AST 79 H, ALT 155 H, Alkaline Phosphatase 141 H, C-Reactive Protein 29.5 H, Total Protein 7.3, Albumin 4.1, Globulin 3.2, Albumin/Globulin Ratio 1.3, Procalcitonin 0.121 09/06/20 06:58: Specimen Source Left radial, O2 % 2l nc, ABG pH 7.49 H, ABG pCO2 34.3 L, ABG pO2 73.9 L, ABG HCO3 25.3, ABG Total CO2 26.4, ABG O2 Saturation 95, ABG Base Excess 1.9, Tushar Test Acceptable Result diagrams: 09/06/20 06:17 09/06/20 06:17 Orders (Tests/Meds): ED MEDICATIONS Generic Name Dose Route Start Last Admin Trade Name Glen PRN Reason Stop Dose Admin Acetaminophen 650 mg 09/06/20 08:10 Acetaminophen 325mg Tab PO 10/06/20 08:09 Q6HP PRN Mild pain,fever,headache Ascorbic Acid 500 mg 09/06/20 09:00 Ascorbic Acid 500mg Tab PO 10/06/20 08:59 QID KELLEN Dexamethasone 6 mg 09/07/20 09:00 Dexamethasone 4mg Tablet PO 10/07/20 08:59 DAILY [facility] Enoxaparin Sodium 40 mg 09/06/20 09:00 Enoxaparin 40mg/0.4ml Syringe SQ 10/06/20 08:59 DAILY [facility] Ergocalciferol 50,000 unit 09/06/20 09:00 Ergocalciferol 50,000 Units (1.25mg) Capsule PO 10/06/20 08:59 WEEKLY KELLEN Famotidine 20 mg 09/06/20 09:00 Famotidine 20mg Tablet PO 02
[2020-09-06 07:01] LABS: ABG Base Excess 1.9 mmol/L (-2.4-2.3); ABG HCO3 25.3 mmhg (22.0-26.0); ABG Oxygen Saturation 95 % (90-100); ABG PCO2 34.3 mmhg (35.0-45.0); ABG PH 7.49 mmol/L (7.35-7.45); ABG PO2 73.9 mmhg (80-100); ABG TCO2 26.4 mmhg (23-27)
[2020-09-06 07:05] LABS: Procalcitonin 0.121 ng/mL (0.0-2.0)
[2020-09-06 07:09] LABS: Allen's Test Acceptable; Oxygen 2L NC %; Source Left Radial
[2020-09-06 07:27] LABS: Erythrocyte Sedimentation Rate 34 mm/hr (0-30)
--- NOTE | 2020-09-06 07:39 | PC.NURSE ---
Per Dr Jones request, pt is taken off oxygen and her saturation is maintaining at 92%. Will continue to monitor.
--- NOTE | 2020-09-06 07:58 | PC.NURSE ---
pt up to restroom without oxygen and O2 level at 85% on RA with exertion.
--- NOTE | 2020-09-06 08:03 | PC.NURSE ---
Dr Jones speaking with Dr Lemos at this time.
--- NOTE | 2020-09-06 08:08 | PC.NURSE ---
Spoke wiht care management about admission
--- NOTE | 2020-09-06 08:51 | HMH.PHAVTE ---
[facility] Pharmacy VTE Monitoring - Patient Demographics Admission date: 09/06/20 Report Date: 09/06/20 Time: 08:51 Allergies/Adverse Reactions: Patient Allergies No Known Allergies Allergy (Verified 04/22/20 13:08) Height: 1.63 m Weight: 68.946 kg - VTE Risk Labs: VTE Related Lab Results Hgb 13.4 g/dL (12.2-16.2) 09/06/20 06:17 Hct 38.5 % (37.0-47.0) 09/06/20 06:17 Plt Count 237 K/mm3 (142-424) 09/06/20 06:17 BUN 8 mg/dl (7-17) 09/06/20 06:17 Creatinine 0.50 mg/dl (0.52-1.04) L 09/06/20 06:17 Estimated Creat Clear 50 mL/min (50-200) 09/06/20 06:17 Clinical Trial Participant: No - Prophylaxis VTE Prophylaxis Ordered?: Yes Types of VTE Prophylaxis: TEDS Knee High
[2020-09-06 09:28] LABS: Coronavirus 19 IgG Antibody Positive (Negative); Coronavirus 19 IgM Antibody Negative (Negative)
--- NOTE | 2020-09-06 11:03 | PC.NURSE ---
notified 2nd pt was ready for admission
--- NOTE | 2020-09-06 11:35 | HMH.PHAINT ---
MEDICATION RECONCILIATION COMPLETED ON PATIENT USING EXTERNAL FILL HISTORY FROM PHARMACY AND LIST FROM MD OFFICE. -SUSHMA CARLOSD
--- NOTE | 2020-09-06 11:36 | PC.NURSE ---
patient arrived to the floor
--- NOTE | 2020-09-06 16:21 | HMH.HP ---
*Admission Date: 09/06/20 *Chief complaint: Shortness of breath *History of present illness: 80-year-old female presented to the emergency department when she developed shortness of breath early this morning upon awakening. Patient felt like she could not catch her breath at rest. She has known COVID-19 diagnosed on August 31. She reports her symptoms began on August 28 with a sore throat. She has tolerated the illness well until the last 24 hours. She presented to the emergency department and on initial assessment O2 sat was only as low as 91% and with application of supplemental oxygen via nasal cannula sats clifford to 98%. Patient underwent work-up that included CT scan of the chest to rule out PE. Upon return from the CT scanner patient was reassessed on room air with a decline in O2 sats to 85% at rest. At this point decision was made to admit the patient for acute respiratory failure related to COVID-19 infection. Patient does have underlying COPD for which she takes Anoro. [facility] History I have reviewed the patient's past medical history: Yes Medical History: Reports:: Cancer (skin), Chronic Obstructive Pulmonary Disease (COPD), Hyperlipidemia, Hypertension, Internal Pacemaker Denies:: Diabetes Mellitus Type 1, Diabetes Mellitus Type 2, MRSA, Seizures *Have you ever received a pneumonia vaccine?: Yes *Have you received a flu vaccine this season?: Yes Other Medical History: Reports: Arthritis, Cataracts, Thyroid Disease. Denies: Blood Transfusion Reaction Laterality Cases: Bilateral: Tonsillectomy Other Surgeries: Yes: Appendectomy, Cardiac Catheterization, Cholecystectomy, Colonoscopy, Coronary Stent, Dilation and Curettage, EGD, Hysterectomy-Partial, Pacemaker, Skin Cancer Excision, Thyroidectomy, Other (gb,eye lid) Amputation: No Fractures: No - *Social History Last grade of school completed: High school graduate Smoking Status: Former smoker #Yrs smoked (if former smoker): 65 Alcohol Intake: never Alcohol Intake Frequency:: holidays/special occasions only *Occupational Status:: retired Housing: apartment Household Members: spouse *Travel in the last 8 weeks: None Family Hx:: Cancer, Stroke Review of Systems - Constitutional Reports body ache(s), Reports lack of energy, Denies chills - ENT Denies abnormal hearing - *Cardiovascular Denies chest pain, Denies chest pain at rest, Denies chest pain with activity - *Respiratory Reports cough, Reports shortness of breath, Denies change in phlegm color, Denies chest congestion - *Gastrointestinal Denies belching, Denies bloating - *Genitourinary Denies difficulty urinating, Denies blood in urine - *Musculoskeletal Denies abnormal walking, Denies joint pain - Integumentary/Breasts Denies hair loss, Denies bleeding lesions - *Neurologic Denies localized weakness Meds Home Medications Medication Instructions Recorded Confirmed Type Amlodipine Besylate/Valsartan 1 each PO DAILY 11/02/17 09/06/20 History [Exforge 10-160 mg Tablet] hydroCHLOROthiazide [HCTZ 25mg 25 mg PO DAILY 11/02/17 09/06/20 History tab] Primidone [Mysoline 50mg tablet] 100 mg PO DAILY 11/21/17 09/06/20 History albuterol sulfate 90 mcg/actuation 1 inh INHALATION Q4-6H PRN #1 each 04/22/20 09/06/20 Rx breath activated powder inhaler,sensor atorvastatin 10 mg tablet 20 mg PO DAILY tab 04/22/20 09/06/20 History omega-3 acid ethyl esters 1 gram 2 gm PO BID 04/22/20 09/06/20 History capsule propranolol 10 mg tablet 20 mg PO TID tab 04/22/20 09/06/20 History umeclidinium 62.5 mcg-vilanterol 1 inh INHALATION DAILY #60 each 05/11/20 09/06/20 Rx 25 mcg/actuation powdr for inhalation Ascorbic Acid [Vitamin C 500mg 500 mg PO DAILY 09/06/20 09/06/20 History tablet] Cholecalciferol (Vitamin D3) 50,000 unit PO WEEKLY 09/06/20 09/06/20 History [Vitamin D3 50,000 unit Cap] Ibuprofen [Ibuprofen 200MG Capsule] 200 mg PO Q6HP PRN 09/06/20 09/06/20 History Primidone [Mysoli
[2020-09-07] VITALS (7 sets, daily range): BP systolic 129–149; BP diastolic 68–75; PULSE 68–76; RESP 18–19; TEMP 36.2–36.7; O2SAT 93–99; BMI 24.7
--- NOTE | 2020-09-07 05:26 | PC.NURSE ---
A&Ox4. Respirations regular and unlabored. B/L/L clear throughout. O2 2.5L NC. No cough noted at this time shift. Active bowel sounds x 4 quadrants. 20g in RAC C/D/I. No edema noted; B/L pedal pulses noted. Denies pain or SOB. Call light within reach. Bed alarm on for safety; Bed in lowest position. VSS. Will continue to monitor.
[2020-09-07 06:30] LABS: Alanine Aminotransferase 93 U/L (12-78); Albumin/Globulin Ratio 1.2 (1.1-1.8); Alkaline Phosphatase 107 U/L (38-126); Anion Gap 8.9 mEq/L (5-15); Aspartate Amino Transferase 47 U/L (14-36); Bilirubin,Total 0.2 mg/dl (0.2-1.3); Blood Urea Nitrogen 5 mg/dl (7-17); Carbon Dioxide 29 mmol/L (22.0-30.0); Chloride 101 mmol/L (98-107); Creatinine Clearance Estimated 47 mL/min (50-200); Estimated Glomerular Filt Rate 119 ml/min (>60); GFR (African American) 144 ML/MIN (>60); Globulin 2.6 g/dL (1.3-3.2); Glucose 101 mg/dl (74-100); Sodium 136 mmol/L (136-145); Total Protein,Serum 5.6 g/dl (6.3-8.2)
[2020-09-07 06:33] LABS: Potassium 2.9 mmoL/L (3.5-5.1)
[2020-09-07 06:35] LABS: C-Reactive Protein 25.2 mg/L (0-4)
--- NOTE | 2020-09-07 06:42 | HMH.ACPN2 ---
Internal Medicine - PN: Subj *Date: 09/07/20 *Time: 06:42 Interval history: Patient has no new complaints this morning. She denies shortness of breath. Cough has been minimal. She has made frequent trips to the bathroom due to the IV fluids. Exam Vital signs and Labs for Last 24 Hours: Temp Pulse Resp BP Pulse Ox 97.2 F L 74 19 129/68 94 L 09/07/20 05:06 09/07/20 06:21 09/07/20 05:06 09/07/20 05:06 09/07/20 06:21 Laboratory Results - last 24 hr 09/06/20 06:17: WBC 5.8, RBC 4.14 L, Hgb 13.4, Hct 38.5, MCV 93.1, MCH 32.5 H, MCHC 34.9, RDW 13.1, Plt Count 237, MPV 7.8, Neut % (Auto) 69.5, Lymph % (Auto) 18.0, [place] % (Auto) 9.1, Eos % (Auto) 2.6, Baso % (Auto) 0.7, Neut # (Auto) 4.0, Lymph # (Auto) 1.0, [place] # (Auto) 0.5, Eos # (Auto) 0.2, Baso # (Auto) 0.0, ESR 34 H 09/06/20 06:17: Sodium 128 L, Potassium 3.5, Chloride 89 L, Carbon Dioxide 31 H, Anion Gap 11.5, BUN 8, Creatinine 0.50 L, Estimated Creat Clear 50, Estimated GFR 119, Est GFR ( Amer) 144, Glucose 115 H, Calcium 9.0, Total Bilirubin 0.5, AST 79 H, ALT 155 H, Alkaline Phosphatase 141 H, C-Reactive Protein 29.5 H, Total Protein 7.3, Albumin 4.1, Globulin 3.2, Albumin/Globulin Ratio 1.3, Procalcitonin 0.121 09/06/20 06:17: SARS-CoV-2 IgG Ab (Rapid) Positive A, SARS-CoV-2 IgM Ab (Rapid) Negative 09/06/20 06:58: Specimen Source Left radial, O2 % 2l nc, ABG pH 7.49 H, ABG pCO2 34.3 L, ABG pO2 73.9 L, ABG HCO3 25.3, ABG Total CO2 26.4, ABG O2 Saturation 95, ABG Base Excess 1.9, Tushar Test Acceptable 09/07/20 05:52: Sodium 136, Potassium 2.9 L*, Chloride 101, Carbon Dioxide 29, Anion Gap 8.9, BUN 5 L D, Creatinine 0.50 L, Estimated Creat Clear 47, Estimated GFR 119, Est GFR ( Amer) 144, Glucose 101 H, Total Bilirubin 0.2, AST 47 H D, ALT 93 H D, Alkaline Phosphatase 107, C-Reactive Protein 25.2 H, Total Protein 5.6 L, Albumin 3.0 L D, Globulin 2.6, Albumin/Globulin Ratio 1.2 I & O for Last 24 hours: Intake & Output 09/04/20 09/05/20 09/06/20 09/07/20 11:59 11:59 11:59 11:59 Intake Total 1168 / 1168 Balance 1168 / 1168 Weight 152 lb 145 lb Narrative: Patient appears comfortable and shows no increased work of breathing. Lungs have bibasilar rales. Heart has a regular rate and rhythm. Abdomen is soft, nontender, nondistended Assessment and Plan (1) Acute respiratory failure with hypoxia Status: Acute Category: Medical Code(s): J96.01 - Acute respiratory failure with hypoxia (2) Viral pneumonia Status: Acute Category: Medical Code(s): J12.9 - Viral pneumonia, unspecified (3) Acute respiratory failure due to COVID-19 Status: Acute Category: Medical Code(s): U07.1 - COVID-19; J96.00 - Acute respiratory failure, unspecified whether with hypoxia or hypercapnia (4) COPD (chronic obstructive pulmonary disease) Status: Acute Category: Medical Code(s): J44.9 - Chronic obstructive pulmonary disease, unspecified (5) Essential hypertension Status: Acute Category: Medical Code(s): I10 - Essential (primary) hypertension - Assessment and plan all Dx Assessment and Plan for all problems:: 1. Continue remdesivir and dexamethasone along with supplemental oxygen support 2. Encourage patient to ambulate within her room today 3. DC IV fluids
[2020-09-07 06:49] LABS: Procalcitonin 0.099 ng/mL (0.0-2.0)
[2020-09-07 06:54] LABS: Basophils % 0.6 % (0.1-2.0); Lymphocytes # 1.1 K/mm3 (0.7-4.5); Lymphocytes % 23.7 % (10-50); Mean Corpuscular HGB Conc 34.3 g/dL (31.8-35.4); Mean Corpuscular Hemoglobin 32.8 pg (27.0-31.2); Mean Corpuscular Volume 95.7 fl (81-99); Mean Platelet Volume 6.9 fl (7.4-10.4); Monocytes # 0.5 K/mm3 (0.1-1.0); Neutrophils % 64.7 % (37.0-80.0); Platelet Count 196 K/mm3 (142-424); Red Blood Count 3.45 M/mm3 (4.20-5.40); Red Cell Distribution Width 13.4 % (11.5-17.5); White Blood Count 4.6 K/mm3 (4.8-10.8)
[2020-09-07 07:30] LABS: Hemoglobin 11.3 g/dL (12.2-16.2)
[2020-09-07 11:33] LABS: Calcium 7.8 mg/dl (8.4-10.2)
--- NOTE | 2020-09-07 14:06 | PC.NURSE ---
Sputum cup at bedside with instructions on obtaining a sample, Pt verbalized understanding.
--- NOTE | 2020-09-07 15:55 | PC.NURSE ---
SHE IS AOX4, ABLE TO MAKE NEEDS KNOWN TO STAFF, AMBULATES INDEPENDENTLY TO RESTROOM, PT HAS BEEN EDUCATED REGARDING USING CALL LIGHT FOR ASSISTANCE BUT SHE PREFERS TO AMBULATE INDEPENDENTLY, SHE HAS REQUIRED 2.5LNC FOR O2 SUPPORT, LUNGS CTA, SHE HAS NOT C/O SOA T/O SHIFT, SHE DENIES PAIN AND N/V/D, SHE HAS TOLERATED DIET WELL. NO NEEDS A THIS TIME, WILL CONTINUE TO MONITOR.
[2020-09-08] VITALS: BP 151/79; PULSE 72; RESP 18; TEMP 36.6; O2SAT 95
[2020-09-08 04:00] VITALS: BP 150/81; PULSE 70; RESP 18; TEMP 36.7; O2SAT 97
--- NOTE | 2020-09-08 04:26 | PC.NURSE ---
Addendum entered by Jigna Gordillo RN 09/08/20 04:37: Cont: Pt bowel sounds positive x4, abd soft and nontender. VSS, call light in reach. No concerns at this time. Original Note: Pt A&O x4 and has slept through the night. Pt ambulated independently to the bathroom and tolerated well. Pt has been on 2L NC with sats in the mid to high 90s. Lung sounds are diminished with fine crackles. No c/o of pain or discomfort. Pt stated that she was hoping to be able to go home
[2020-09-08 05:00] VITALS: BMI 24.9
[2020-09-08 06:10] VITALS: PULSE 70; PULSE 71; O2SAT 94
[2020-09-08 06:54] LABS: Basophils % 0.6 % (0.1-2.0); Eosinophils # 0.1 K/mm3 (0.0-0.4); Eosinophils % 1.3 % (0.1-12.0); Hematocrit 35.8 % (37.0-47.0); Hemoglobin 11.7 g/dL (12.2-16.2); Lymphocytes # 1.7 K/mm3 (0.7-4.5); Lymphocytes % 30.1 % (10-50); Mean Corpuscular HGB Conc 32.7 g/dL (31.8-35.4); Mean Corpuscular Hemoglobin 32.5 pg (27.0-31.2); Mean Corpuscular Volume 99.6 fl (81-99); Mean Platelet Volume 7.7 fl (7.4-10.4); Monocytes # 0.5 K/mm3 (0.1-1.0); Monocytes % 9.3 % (1.7-9.3); Neutrophils # 3.3 K/mm3 (1.8-7.8); Neutrophils % 58.7 % (37.0-80.0); Platelet Count 231 K/mm3 (142-424); Red Cell Distribution Width 13.3 % (11.5-17.5); White Blood Count 5.6 K/mm3 (4.8-10.8)
--- NOTE | 2020-09-08 06:54 | HMH.DCSUM ---
General - General Admission date:: 09/06/20 Discharge date: 09/08/20 HPI HPI: 80-year-old female presented to the emergency department when she developed shortness of breath early this morning upon awakening. Patient felt like she could not catch her breath at rest. She has known COVID-19 diagnosed on August 31. She reports her symptoms began on August 28 with a sore throat. She has tolerated the illness well until the last 24 hours. She presented to the emergency department and on initial assessment O2 sat was only as low as 91% and with application of supplemental oxygen via nasal cannula sats clifford to 98%. Patient underwent work-up that included CT scan of the chest to rule out PE. Upon return from the CT scanner patient was reassessed on room air with a decline in O2 sats to 85% at rest. At this point decision was made to admit the patient for acute respiratory failure related to COVID-19 infection. Patient does have underlying COPD for which she takes Anoro. Hospital Course Hospital Course: Patient was admitted and started on remdesivir, azithromycin, Rocephin and dexamethasone for pneumonia and placed on supplemental oxygen due to desaturation of 85% in the emergency department. After admission patient remained stable. Lung exam was consistent with bilateral pneumonia with rales more prominent on right than left. Patient showed no deterioration over 48-hour observation. While receiving Covid appropriate treatments. On the she was discharged home with supplemental oxygen. Patient will follow-up in the office in 1 week. Objective Vital signs: Temp Pulse Resp BP Pulse Ox 98.0 F 71 18 150/81 H 94 L 09/08/20 04:00 09/08/20 06:10 09/08/20 04:00 09/08/20 04:00 09/08/20 06:10 no acute distress - *Routine Respiratory Exam Present: rales (Right base) - *Routine Cardiovascular Exam Present: RRR Results Labs on day of discharge: Labs from last 24 hours 09/07/20 09/07/20 05:52 05:52 WBC 4.6 L RBC 3.45 L Hgb 11.3 L D Hct 33.0 L MCV 95.7 MCH 32.8 H MCHC 34.3 RDW 13.4 Plt Count 196 MPV 6.9 L Neut % (Auto) 64.7 Lymph % (Auto) 23.7 [place] % (Auto) 10.0 H Eos % (Auto) 1.0 Baso % (Auto) 0.6 Neut # (Auto) 3.0 Lymph # (Auto) 1.1 [place] # (Auto) 0.5 Eos # (Auto) 0.0 Baso # (Auto) 0.0 Calcium 7.8 L D DS: Diagnosis - Discharge Diagnosis (1) Acute respiratory failure with hypoxia Status: Resolved (2) Viral pneumonia Status: Acute (3) Acute respiratory failure due to COVID-19 Status: Acute (4) COPD (chronic obstructive pulmonary disease) Status: Acute (5) Essential hypertension Status: Acute Discharge Plan - Patient Discharge Instructions Patient Instructions: DI for COVID-19 (Suspected or Confirmed ), Preventing the Spread of Coronavirus Discharge Instructions - Follow up Plan Follow up with: Maritza Vigil MD [Primary Care Provider] - Disposition: Home, Self-Long Term Medications: Home Medications Medication Instructions Recorded Confirmed Type Amlodipine Besylate/Valsartan 1 each PO DAILY 11/02/17 09/06/20 History [Exforge 10-160 mg Tablet] hydroCHLOROthiazide [HCTZ 25mg 25 mg PO DAILY 11/02/17 09/06/20 History tab] Primidone [Mysoline 50mg tablet] 100 mg PO DAILY 11/21/17 09/06/20 History albuterol sulfate 90 mcg/actuation 1 inh INHALATION Q4-6H PRN #1 each 04/22/20 09/06/20 Rx breath activated powder inhaler,sensor atorvastatin 10 mg tablet 20 mg PO DAILY tab 04/22/20 09/06/20 History omega-3 acid ethyl esters 1 gram 2 gm PO BID 04/22/20 09/06/20 History capsule propranolol 10 mg tablet 20 mg PO TID tab 04/22/20 09/06/20 History umeclidinium 62.5 mcg-vilanterol 1 inh INHALATION DAILY #60 each 05/11/20 09/06/20 Rx 25 mcg/actuation powdr for inhalation Ascorbic Acid [Vitamin C 500mg 500 mg PO DAILY 09/06/20 09/06/20 History tablet] Cholecalciferol (V
[2020-09-08 07:30] LABS: Alanine Aminotransferase 81 U/L (12-78); Albumin Level 3.2 g/dl (3.5-5.0); Albumin/Globulin Ratio 1.1 (1.1-1.8); Alkaline Phosphatase 105 U/L (38-126); Anion Gap 8.9 mEq/L (5-15); Aspartate Amino Transferase 41 U/L (14-36); Bilirubin,Total 0.2 mg/dl (0.2-1.3); Blood Urea Nitrogen 4 mg/dl (7-17); Calcium 8.3 mg/dl (8.4-10.2); Carbon Dioxide 31 mmol/L (22.0-30.0); Chloride 99 mmol/L (98-107); Creatinine Clearance Estimated 48 mL/min (50-200); Estimated Glomerular Filt Rate 154 ml/min (>60); GFR (African American) 186 ML/MIN (>60); Globulin 2.8 g/dL (1.3-3.2); Glucose 100 mg/dl (74-100); Sodium 136 mmol/L (136-145)
[2020-09-08 07:42] LABS: Potassium 2.9 mmoL/L (3.5-5.1)
[2020-09-08 07:44] LABS: Procalcitonin 0.099 ng/mL (0.0-2.0)
--- NOTE | 2020-09-08 07:48 | PC.NURSE ---
Notified Dr. Lemos of potassium of 2.9.
[2020-09-08 08:00] VITALS: BP 146/72; PULSE 73; RESP 18; TEMP 36.8; O2SAT 93; O2SAT 94
--- NOTE | 2020-09-08 09:24 | SW/DCPLANNER ---
PATIENT IS DISCHARGING HOME TODAY WITH HOME 02... THIS WAS SET UP THROUGH [facility] AND A PORTABLE WILL BE DELIVERED TO HER ROOM PRIOR TO HER EXITING THE BUILDING...
[2020-09-08 10:30] VITALS: PULSE 68; PULSE 70; O2SAT 94
== END 2020-09-08 11:45 | disposition home or self-care (01) | DRG 177 ==
LOC: ER 06:23 → 2ND 09:06
PROVIDERS: Admitting Provider Family Medicine; Emergency Provider Emergency Medicine; PCP Family Medicine; Visit Provider Family Medicine
DX: U07.1 COVID-19 (principal); J96.01 Acute respiratory failure with hypoxia; J12.82 Pneumonia due to coronavirus disease 2019; I10 Essential (primary) hypertension; E78.5 Hyperlipidemia, unspecified; J44.9 Chronic obstructive pulmonary disease, unspecified; Z79.899 Other long term (current) drug therapy
CPT/HCPCS: 71045; 71275; 80053; 82803; 84145; 85025; 85651; 86140; 86328; 87205; 94640; 96365; 96375; 99285

== ENCOUNTER → 2020-09-28 11:32 | Outpatient (POV) | payer MEDICARE, BC, SELFPAY | PROVIDERS: Visit Provider Dermatology | DX: Z00.00 Encounter for general adult medical examination without abnormal findings (principal) ==

== ENCOUNTER → 2020-10-28 12:48 | Outpatient (CLI) | payer MEDICARE, BC, SELFPAY | PROVIDERS: PCP Family Medicine; Visit Provider Internal Medicine Pulmonary Disease | DX: J44.9 Chronic obstructive pulmonary disease, unspecified (principal) | CPT/HCPCS: 94060 ==

== ENCOUNTER → 2020-11-16 13:53 | Outpatient (CLI) | payer MEDICARE, BC, SELFPAY | PROVIDERS: PCP Family Medicine; Visit Provider Internal Medicine Pulmonary Disease | DX: R06.09 Other forms of dyspnea (principal) | CPT/HCPCS: 94762 ==

== ENCOUNTER → 2020-12-07 20:06 | Outpatient (CLI) | payer MEDICARE, BC, SELFPAY | PROVIDERS: PCP Family Medicine; Visit Provider Internal Medicine Pulmonary Disease | DX: G47.30 Sleep apnea, unspecified (principal); R09.02 Hypoxemia | CPT/HCPCS: 95810 ==

== ENCOUNTER → 2021-05-09 10:18 | Outpatient (CLI) | payer MEDICARE, BC, SELFPAY ==
--- NOTE | 2021-05-09 10:22 | XR_ITS ---
PROCEDURE: XR FOOT WT BEARING RT 3V CLINICAL INDICATION: hammertoe pain COMPARISON: CR FTR3 FOOT-RT-3 VIEWS from 06/21/2017 CR FTL3 FOOT-LT-3 VIEWS from 06/21/2017 FINDINGS: There is severe hallux valgus at the 1st MTP joint with bunion formation at the distal aspect of the 1st metatarsal. Hallux valgus has progressed since the previous exam. There is mild lateral subluxation of the proximal phalanx of the great toe. The joint spaces are well-preserved. No significant degenerative/arthritic changes. No erosive changes evident. Other findings:None. IMPRESSION: Severe hallux valgus progressed since the previous exam Dictated by: Tushar Siegel MD 05/09/2021 13:51 Tushar Siegel MD in [place] 05/09/2021 13:51
== END ==
PROVIDERS: PCP Family Medicine; Visit Provider Podiatrist
DX: M20.40 Other hammer toe(s) (acquired), unspecified foot (principal)
CPT/HCPCS: 73630

== ENCOUNTER → 2021-09-27 13:45 | Outpatient (CLI) | payer MEDICARE, BC, SELFPAY | PROVIDERS: PCP Family Medicine; Visit Provider Internal Medicine Pulmonary Disease | DX: R06.02 Shortness of breath (principal) | CPT/HCPCS: 94762 ==

== ENCOUNTER → 2021-10-04 11:00 | Outpatient (POV) | payer MEDICARE, BC, SELFPAY | PROVIDERS: Visit Provider Dermatology | DX: Z00.00 Encounter for general adult medical examination without abnormal findings (principal) ==

== ENCOUNTER → 2021-10-18 13:40 | Outpatient (CLI) | payer MEDICARE, BC, SELFPAY | PROVIDERS: PCP Family Medicine; Visit Provider Internal Medicine Pulmonary Disease | DX: R06.09 Other forms of dyspnea (principal) | CPT/HCPCS: 94762 ==

== ENCOUNTER 2022-10-12 15:00 | Outpatient (RCR) | payer MEDICARE, BC, SELFPAY | END 2022-10-12 15:05 | disposition home or self-care (01) | LOC: PT 15:00 | PROVIDERS: PCP Family Medicine; Visit Provider Neurological Surgery | DX: M54.16 Radiculopathy, lumbar region (principal) | CPT/HCPCS: 97010; 97110; 97163; 97164 ==

== ENCOUNTER 2023-11-20 13:44 | Outpatient (POV) | payer MEDICARE, BC, SELFPAY | END 2023-11-20 23:59 | disposition home or self-care (01) | LOC: SC 13:45 | PROVIDERS: PCP Family Medicine; Visit Provider Dermatology | DX: Z00.00 Encounter for general adult medical examination without abnormal findings (principal) ==

== ENCOUNTER 2024-05-01 14:27 | Outpatient (CLI) | payer MEDICARE, BC, SELFPAY ==
--- NOTE | 2024-05-01 14:37 | XR_ITS ---
FINAL REPORT CLINICAL HISTORY: HIP PAIN FINDINGS: RIGHT HIP Three views of the right hip demonstrate no acute fracture or dislocation. There are mild degenerative changes bilaterally. Postoperative changes are noted of the lower lumbar spine. The visualized bony structures are well aligned. No soft tissue abnormality is seen. IMPRESSION: No acute bony abnormality. Reviewed, Interpreted and Dictated by Reji Muller III, MD Transcribed by Ladan Candelario Authenticated and [facility]
== END 2024-05-01 23:59 | disposition home or self-care (01) ==
LOC: RAD 14:32
PROVIDERS: PCP Family Medicine; Visit Provider Nurse Practitioner
DX: M25.551 Pain in right hip (principal)
CPT/HCPCS: 73502

== ENCOUNTER 2024-11-28 09:45 | Outpatient (CLI) | payer MEDICARE, BC, SELFPAY ==
[2024-11-28] MEDS: ALBUTEROL 0.083% 2.5 MG/3 ML NEB IH (10:14)
--- NOTE | 2024-11-28 10:18 | PC.NURSE ---
Pre and Post Spirometry completed without incident. Albuterol 0.083% given via HHN, per written protocol, Pt tolerated tx well.
== END 2024-11-28 23:59 | disposition home or self-care (01) ==
LOC: RT 09:46
PROVIDERS: PCP Family Medicine; Visit Provider Internal Medicine Pulmonary Disease
DX: J44.9 Chronic obstructive pulmonary disease, unspecified (principal)
CPT/HCPCS: 94010; J7613

== ENCOUNTER 2025-01-23 13:46 | Outpatient (RCR) | payer MEDICARE, BC, SELFPAY | END 2025-01-23 23:59 | disposition home or self-care (01) | LOC: PT 13:46 | PROVIDERS: PCP Family Medicine; Visit Provider Orthopaedic Surgery | DX: M16.11 Unilateral primary osteoarthritis, right hip (principal) | CPT/HCPCS: 97110; 97163; 97530 ==

== ENCOUNTER 2025-02-23 14:00 | Outpatient (RCR) | payer MEDICARE, BC, SELFPAY | END 2025-02-23 23:59 | disposition home or self-care (01) | LOC: PT 14:00 | PROVIDERS: PCP Family Medicine; Visit Provider Orthopaedic Surgery | DX: M16.11 Unilateral primary osteoarthritis, right hip (principal) | CPT/HCPCS: 97110; 97116; 97530 ==

== ENCOUNTER 2025-03-06 15:00 | Outpatient (RCR) | payer MEDICARE, BC, SELFPAY | END 2025-03-06 23:59 | disposition home or self-care (01) | LOC: PT 15:00 | PROVIDERS: PCP Family Medicine; Visit Provider Orthopaedic Surgery | DX: M16.11 Unilateral primary osteoarthritis, right hip (principal) | CPT/HCPCS: 97110; 97530 ==

== ENCOUNTER 2025-03-14 13:45 | Outpatient (CLI) | payer MEDICARE, BC, SELFPAY ==
--- OUTSIDE RECORDS SUMMARY | 2024-12-15 06:00 | XMS_ITS | Encounter Summary ---
Author Organization [employer] ([place], [place], [place], [place]) Address [address] [place] [address] Care Team Providers Care Machinery Rigger Name Role Phone No, Pcp [facility] Primary Care Provider Juliana Cerda MD Unavailable [phone] Aliyah Cohen MD Unavailable [phone] Reason for Visit * Reason Comments Pacemaker /ICD Home Monitoring Encounter Details Date Type Department Care Team (Late st Contact Info) Description 12/15/2024 6:00 AM EDT Clinical Support [facility] Electrophysiology [address] [place] [phone] Malcolm Schafer MD [address] [facility] [address] [place] [address] Encounter for adjustment or management of cardiac device (Primary Dx); Presence of cardiac pacemaker; Sick sinus syndrome (HCC) Social History Tobacco Use Types Packs/Day Years Used Date Smoking Tobacco: Former Cigarettes 2 55 1 960 - 2015 Smokeless Tobacco: Never Alcohol Use Standard Drinks/Week Comments Not Currently 0 (1 standard drink = 0.6 oz pur e alcohol) Family and Community Support Answer Tee e Recorded Help with Day to Day Activities Not on file 09/04/2023 Feeling Lonely or Isolated Not on file 09/04 Educational Attainment Answer Date Mando rded Speak language other than [place] at home Not on file 09/04/2023 Want help with school or training Not on file 09/04/2023 Substance Use Answer Date Recorded Used prescription meds for non-medical reasons N ot on file 09/04/2023 Used illegal drugs past 12 months Not on file 09/04/2023 Comments No Sex and Gender Information Value Date Recorded Sex Assigned at Not on file Legal Sex Female 1:15 PM CDT Gender Identity Not on file Sexual Orientation Not on file documented as of this encounter Plan of Treatment Upcoming Encounters Date Type Department Care Team (Late st Contact Info) Description 06/18/2025 1:00 PM EDT Office Visit [facility] Electrophysiology [address] [place] [phone] [place] [address] [place] [address] [address] [place], [place] [id number] documented as of this encounter Visit Diagnoses Diagnosis Encounter for adjustment or management of cardiac device- Primary Presence of cardiac pacemaker Cardiac pacemaker in situ Sick sinus syndrome (HCC) Sinoatrial node dysfunction documented in this encounter Care Teams Machinery Rigger Relationship Specialty Start Date End Date No, Pcp [facility] PCP - General 06/22/22 Juliana Rojo MD [address] [facility] [address] [place] [address] Equipment Operator/Laborer Interventional Cardiology 05/28/24 [place] [address] [place] [address] [address] [place] [address] Equipment Operator/Laborer Electrophysiology 05/28/24 documented as of this encounter
--- OUTSIDE RECORDS SUMMARY | 2025-01-08 13:30 | XMS_ITS | Encounter Summary ---
[facility] [address] [place] [address] Care Team Providers Care Patent Legal Assistant Name Role Phone Marcelo Vigil MD Primary Care Provider Encounter Details Date Type Department Care Team (Latest Contact Info) Description 01/08/2025 1:30 PM EDT Pre-Admission Testing [facility] [address] [place] [address] Primary osteoarthritis of right hip Social History Tobacco Use Types Packs/Day Years Used Date Smoking Tobacco: Never Assessed Passive Smoke Exposure: Past Smokeless Tobacco: Never Tobacco Cessation:Counseling Given: Not Answered Comments:Quit 2014 Alcohol Use Standard Drinks/Week Comments Not Currently 0 (1 standard drink = 0.6 oz pur e alcohol) Abuse Screen Answer Date Recorded Feels Unsafe at Home or Work/School no 01/08/2025 Feels Threatened by Someone no 12/25 Does Anyone Try to Keep You From Having Contact with Others or Doing Things Outside Your Home? no 01/08/2025 Physical Signs of Abuse Present no 01/08/2025 Education Answer Date Recorded Help with school or training? Not on file Preferred Language Martiniquais 01/08/2025 Comments No Sex and Gender Information Value Date Recorded Sex Assigned at Not on file Legal Sex Female 10:29 AM EDT Gender Identity Not on file Sexual Orientation Not on file documented as of this encounter Last Filed Vital Signs Vital Sign Reading Time Taken Comments Blood Pressure - - Pulse - - Temperature - - Respiratory Rate - - Oxygen Saturation - - Inhaled Oxygen Concentration - - Weight 74.6 kg (164 lb 7.4 oz) 01/08/2025 2:45 P M EDT Height 160 cm (5' 3 ) 01/08/2025 2:45 PM EDT Body Mass Index 29.13 01/08/2025 2:45 PM EDT documented in this encounter OR Notes * PAT - Evelyn Gilbert, RN - 01/08/2025 1:30 PM EDT Patient to apply Chlorhexadine wipes to surgical area (as instructed) the night before procedure and the AM of procedure. Wipes provided. Patient instructed to drink 20 ounces of Gatorade or Gatorlyte (if diabetic) and it needs to be completed 1 hour (for Main OR patients) or 2 hours (scheduled section & [facility] patients) before given arrival time for procedure (NO RED Gatorade and NO Gatorade Zero). Patient verbalized understanding. Discussed with patient options for receiving total joint replacement education and assessed patient's ability and preference. Joint Replacement Guide given to patient during PAT visit since not received a copy within the last year. Encouraged patient/family to read Joint Replacement guide thoroughly and notify PAT staff with any questions or concerns. Patient stated unable to watch videos online or join a class; therefore, one-on-one education was provided using the Hip and Knee Joint Replacement Nurse Guide with patient during PAT visit. Patient verbalized understanding of all information and priority content. In the event online education became accessible to patient, a handout was provided directing patient to links to watch online videos on the [facility] website or join a Zoom orphone conference offered on related to joint replacement surgery. Patient verbalized understanding to complete online learning tool survey. Encouraged to share information with family and/or job coach/job developer. Prescription for Chlorhexidine shower called into patient's pharmacy or [facility] pharmacy by patient's surgeon. Reinforced with patient to clam picker the prescription from applicable pharmacy if they haven'talready. Verbal and written instructions given regarding proper use of Chlorhexidine body wash to patient and/or famlily during PAT visit. Patient/family also instructed to complete checklist and return it to Pre-op on the day of surgery. Patient and/or family verbalized understanding. Office was contacted re: pt's ASA usage/dosage. Office states they will reach out to pt if needed. documented in this encounter Plan of Treatment Upcoming Encounters Date Type Department Care Team (Late st Contact Info) Description 05/12/2025 2:30 PM EDT Office Visit [facility] [address] [address] Tommy Joyce MD [address] [address] Scheduled Orders Name Type Priority Associated Diagnoses Orde r Schedule Cardiology Scan Cardiac Services Ord ered: 01/08/2025 documented as of this encounter Goals Goal Patient Goal Type Associated Problems Recent Progress Patient-Stated? Author Autogenera kaushik Goal Care Plan Autogenerated Problem No Tommy Joyce MD documented as of this encounter Procedures Procedure Name Priority Date/Time Associated Diagnosis Comments ECG 12-LEAD Routine 01/08/2025 2:42 PM EDT Primary osteoarthritis of right hip NICOTINE AND METABOLITE, QUANT Routine 01/08/2025 2:11 PM EDT Primary osteoarthritis of right hip CBC WITH AUTO DIFFERENTIAL Routine 01/08/2025 2:11 PM EDT Primary osteoarthritis of right hip APTT Routine 01/08/2025 2:11 PM EDT Primary osteoarthritis of right hip PROTIME-INR Routine 01/08/2025 2:11 PM EDT Primary osteoarthritis of right hip CBC AND DIFFERENTIAL Routine 01/08/2025 2:11 PM EDT Primary osteoarthritis of right hip HEMOGLOBIN A1C Routine 01/08/2025 2:11 PM EDT Primary osteoarthritis of right hip COMPREHENSIVE METABOLIC PANEL Routine 01/08/2025 2:11 PM EDT Primary osteoarthritis of right hip documented in this encounter Results * ECG 12 Lead (01/08/2025 2:42 PM EDT) QT Interval 392 ms ECG QTC Interval 423 ms ECG 01/08/2025 2:42 PM EDT 01/08/2025 4:38 PM EDT Narrative ECG - 01/08/2025 4:38 PM EDT Test Reason : pre-op surgery Blood Pressure : */* mmHG Vent. Rate : 70 BPM Atrial Rate : 70 BPM P-R Int : 210 ms QRS Dur : 90 ms QT Int : 392 ms P-R-T Axes : 13 38 76 degrees QTcB Int : 423 ms Atrial-paced rhythm with prolonged AV conduction Nonspecific ST and T wave abnormality Abnormal ECG No previous ECGs available Confirmed by EUSEBIO ASHLEY MD ([id number]) on 01/08/2025 4:38:55 PM Referred By: Confirmed By: EUSEBIO ASHLEY MD Procedure Note Eusebio Ashley MD - 01/08/2025 Test Reason : pre-op surgery Blood Pressure : */* mmHG Vent. Rate : 70 BPM Atrial Rate : 70 BPM P-R Int : 210 ms QRS Dur : 90 ms QT Int : 392 ms P-R-T Axes : 13 38 76 degrees QTcB Int : 423 ms Atrial-paced rhythm with prolonged AV conduction Nonspecific ST and T wave abnormality Abnormal ECG No previous ECGs available Confirmed by EUSEBIO ASHLEY MD ([id number]) on 01/08/2025 4:38:55 PM Referred By: Confirmed By: EUSEBIO ASHLEY MD us Tommy Joyce MD ECG ORDERABLES Final Resul t ECG * CBC Auto Differential (01/08/2025 2:11 PM EDT) WBC 6.35 3.40 - 10.80 10*3/mm3 01/08/2025 2:45 PM EDT [facility] RBC 4.20 3.77 - 5.28 10*6/mm3 01/08/2025 2:45 PM EDT [facility] Hemoglobin 13.2 12.0 - 15.9 g/dL 01/08/2025 2:45 PM EDT [facility] Hematocrit 39.7 34.0 - 46.6 % 01/08/2025 2:45 PM EDT [facility] MCV 94.5 79.0 - 97.0 fL 01/08/2025 2:45 PM EDT [facility] MCH 31.4 26.6 - 33.0 pg 01/08/2025 2:45 PM EDT [facility] MCHC 33.2 31.5 - 35.7 g/dL 01/08/2025 2:45 PM EDT [facility] RDW 12.8 12.3 - 15.4 % 01/08/2025 2:45 PM EDT [facility] RDW-SD 44.2 37.0 - 54.0 fl 01/08/2025 2:45 PM EDT [facility] MPV 8.4 6.0 - 12.0 fL 01/08/2025 2:45 PM EDT [facility] Platelets 237 140 - 450 10*3/mm3 01/08/2025 2:45 PM EDT [facility] Neutrophil % 62.0 42.7 - 76.0 % 01/08/2025 2:45 PM EDT [facility] Lymphocyte % 23.3 19.6 - 45.3 % 01/08/2025 2:45 PM EDT [facility] Monocyte % 9.8 5.0 - 12.0 % 01/08/2025 2:45 PM EDT [facility] Eosinophil % 3.5 0.3 - 6.2 % 01/08/2025 2:45 PM EDT [facility] Basophil % 0.9 0.0 - 1.5 % 01/08/2025 2:45 PM EDT [facility] Immature Grans % 0.5 0.0 - 0.5 % 01/08/2025 2:45 PM EDT [facility] Neutrophils, Absolute 3.94 1.70 - 7.00 10*3/mm3 01/08/2025 2:45 PM EDT [facility] Lymphocytes, Absolute 1.48 0.70 - 3.10 10*3/mm3 01/08/2025 2:45 PM EDT [facility] Monocytes, Absolute 0.62 0.10 - 0.90 10*3/mm3 01/08/2025 2:45 PM EDT [facility] Eosinophils, Absolute 0.22 0.00 - 0.40 10*3/mm3 01/08/2025 2:45 PM EDT [facility] Basophils, Absolute 0.06 0.00 - 0.20 10*3/mm3 01/08/2025 2:45 PM EDT [facility] Immature Grans, Absolute 0.03 0.00 - 0.05 10*3/mm3 01/08/2025 2:45 PM EDT [facility] nRBC 0.0 0.0 - 0.2 /100 WBC 01/08/2025 2:45 PM EDT [facility] Blood Venipuncture / Unknown 01/08/2025 2:11 PM EDT 01/08/2025 2:36 PM EDT Tommy Joyce MD LAB BLOOD ORDERABLES Final Result [facility]
[address] [place] [address], * Nicotine & Metabolite, Quant (01/08/2025 2:11 PM EDT) Nicotine <1.0 ng/mL 01/20/2025 2:10 PM EDT [facility] Comment: This test was developed and its performance characteristics determined by [facility]. It has not been cleared or approved by the Food and Drug Administration. Nicotine levels greater than 2.0 are consistent with the use of tobacco or tobacco cessation products. Cotinine <1.0 ng/mL 01/20/2025 2:10 PM EDT [facility] Comment: This test was developed and its performance characteristics determined by [facility]. It has not been cleared or approved by the Food and Drug Administration. Cotinine levels greater than 20.0 are consistent with the use of tobacco or tobacco cessation products. Blood Venipuncture / Unknown 01/08/2025 2:11 PM EDT 01/08/2025 2:36 PM EDT [facility] - 01/20/2025 2:10 PM EDT Performed at: [address] [place] [address] [id number] Sponsorship Manager: Mary Dc MD, Phone: [phone] Tommy Joyce MD LAB BLOOD ORDERABLES Final Result Performing Organization Address City/[facility]/ZIP Co de Phone Number [facility] [address] [place] [address], [place] [phone] * Hemoglobin A1c (01/08/2025 2:11 PM EDT) Hemoglobin A1C 5.50 4.80 - 5.60 % 01/08/2025 3:46 PM EDT [facility] Blood Venipuncture / Unknown 01/08/2025 2:11 PM EDT 01/08/2025 2:36 PM EDT [facility] - 01/08/2025 3:46 PM EDT Hemoglobin A1C Ranges: Increased Risk for Diabetes 5.7% to 6.4% Diabetes >= 6.5% Diabetic Goal < 7.0% Tommy Joyce MD LAB BLOOD ORDERABLES Final Result [facility]
[address] [place] [address], [place] [phone] * APTT (01/08/2025 2:11 PM EDT) PTT 26.5 22.0 - 39.0 seconds 01/08/2025 2:55 PM EDT [facility] Blood Venipuncture / Unknown 01/08/2025 2:11 PM EDT 01/08/2025 2:36 PM EDT Narrative [facility] - 01/08/2025 2:55 PM EDT PTT = The equivalent PTT values for the therapeutic range of heparin levels at 0.3 to 0.5 U/ml are 60 to 70 seconds. Tommy Joyce MD LAB BLOOD ORDERABLES Final Result Performing Organization Address [facility] de Phone Number [facility]
[address] [place] [address], * Protime-INR (01/08/2025 2:11 PM EDT) Pathologist [facility] Protime 13.1 12.2 - 15.3 Seconds 01/08/2025 2:55 PM EDT [facility] INR 0.94 0.89 - 1.12 01/08/2025 2:55 PM EDT [facility] Blood Venipuncture / Unknown 01/08/2025 2:11 PM EDT 01/08/2025 2:36 PM EDT Tommy Joyce MD LAB BLOOD ORDERABLES Final Result Performing Organization Address [facility] de Phone Number [facility]
[address] [place] [address], * (ABNORMAL) Comprehensive metabolic panel (01/08/2025 2:11 PM EDT) Glucose 100(H) 65 - 99 mg/dL 01/08/2025 3:00 PM EDT [facility] BUN 12 8 - 23 mg/dL 01/08/2025 3:00 PM EDT [facility] Creatinine 0.59 0.57 - 1.00 mg/dL 01/08/2025 3:00 PM EDT [facility] Sodium 133(L) 136 - 145 mmol/L 01/08/2025 3:00 PM EDT [facility] Potassium 4.2 3.5 - 5.2 mmol/L 01/08/2025 3:00 PM [facility] Chloride 94(L) 98 - 107 mmol/L 01/08/2025 3:00 PM [facility] CO2 29.0 22.0 - 29.0 mmol/L 01/08/2025 3:00 PM [facility] Calcium 9.5 8.6 - 10.5 mg/dL 01/08/2025 3:00 PM [facility] Total Protein 6.6 6.0 - 8.5 g/dL 01/08/2025 3:00 PM [facility] Albumin 4.7 3.5 - 5.2 g/dL 01/08/2025 3:00 PM [facility] ALT (SGPT) 23 1 - 33 U/L 01/08/2025 3:00 PM [facility] AST (SGOT) 21 1 - 32 U/L 01/08/2025 3:00 PM [facility] Alkaline Phosphatase 118(H) 39 - 117 U/L 01/08/2025 3:00 PM [facility] Total Bilirubin 0.2 0.0 - 1.2 mg/dL 01/08/2025 3:00 PM [facility] Globulin 1.9 gm/dL 01/08/2025 3:00 PM [facility] Comment:Calculated Result A/G Ratio 2.5 g/dL 01/08/2025 3:00 PM [facility] BUN/Creatinine Ratio 20.3 7.0 - 25.0 01/08/2025 3:00 PM [facility] Anion Gap 10.0 5.0 - 15.0 mmol/L 01/08/2025 3:00 PM [facility] eGFR 89.6 >60.0 mL/min/1.7 3 01/08/2025 3:00 PM [facility] Blood Venipuncture / Unknown 01/08/2025 2:11 PM EDT 01/08/2025 2:36 PM EDT Narrative [facility] - 01/08/2025 3:00 PM EDT GFR Categories in Chronic Kidney Disease (CKD) GFR Category GFR (mL/min/1.73) Interpretation G1 90 or greater Normal or high (1) G2 60-89 Mild decrease (1) G3a 45-59 Mild to moderate decrease G3b 30-44 Moderate to severe decrease G4 15-29 Severe decrease G5 14 or less Kidney failure (1)In the absence of evidence of kidney disease, neither GFR category G1 or G2 fulfill the criteria for CKD. eGFR calculation 2020 CKD-EPI creatinine equation, which does not include race as a factor us Tommy Joyce MD LAB BLOOD ORDERABLES Final Result [facility]
[address] [place] [address], documented in this encounter Visit Diagnoses Diagnosis Primary osteoarthritis of right hip documented in this encounter Additional Health Concerns Active Problems Noted Date Diagnosed Date Autogenerated Problem 02/21/2025 documented as of this encounter Care Teams Patent Legal Assistant Relationship Specialty Start Date End Date Marcelo Vigil MD [address] [place] [address] PCP - General 11/12/15 documented as of this encounter
--- OUTSIDE RECORDS SUMMARY | 2025-01-21 05:43 | XMS_ITS | Encounter Summary ---
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 mg 4 mg, Intravenous, Every 6 Hours PRN, Nausea, Vomiting, Starting on Sun01/21/25 at 1023, If BOTH ondansetron (ZOFRAN) and promethazine (PHENERGAN) are ordered use ondansetron first and THEN promethazine IF ondansetron is ineffective. ondansetron ODT (ZOFRAN-ODT) disintegrating tablet 4 mg 4 mg, Oral, Every 6 Hours PRN, Nausea, Vomiting, Starting on Sun01/21/25 at 1023, If BOTH ondansetron (ZOFRAN) and promethazine (PHENERGAN) are ordered use ondansetron first and THEN promethazine IF ondansetron is ineffective. Place on tongue and allow to dissolve. pregabalin (LYRICA) capsule 75 mg 75 mg, Oral, Once, On Sun01/21/25 at 0557, For 1 dose, {RYAN}Indications:Primary osteoarthritis of right hip Given 01/21/2025 6:31 AM EDT 75 mg sodium chloride 0.9 % bolus 500 mL 500 mL, Intravenous, at 250 mL/hr, Administer over 2 Hours, 3 Times Daily PRN, for SBP less than 90, Starting on Sun01/21/25 at 1221 New Bag 01/21/2025 1:45 PM EDT 500 mL 250 mL/hr valsartan (DIOVAN) tablet 160 mg 160 mg, Oral, Every 24 Hours Scheduled, First dose on Sun01/21/25 at 1315 documented in this encounter Active and Recently Administered Medications Times are shown in EDT. Scheduled Medication Order 01/19/2025 01/20/2025 01/21/2025 acetaminophen (TYLENOL) tablet 1,000 mg (COMPLETED) 1,000 mg, Oral, Once, On Sun01/21/25 at 0557, For 1 dose, Based on patient request - if ordered for moderate or severe pain, provider allows for administration of a medication prescribed for a lower pain scale. Do not exceed 4 grams of acetaminophen in a 24 hr period. Max dose of 2gm for AST/ALT greater than 120 units/L. If given for pain, use the following pain scale: Mild Pain = Pain Score of 1-3, CPOT 1-2 Moderate Pain = Pain Score of 4-6, CPOT 3-4 Severe Pain = Pain Score of 7-10, CPOT 5-8 0631 (Given - Provid er: Mikayla Stoddard RN) acetaminophen (TYLENOL) tablet 1,000 mg 1,000 mg, Oral, Every 8 Hours, First dose on Sun01/21/25 at 1025, Based on patient request - if ordered for moderate or severe pain, provider allows for administration of a medication prescribed for a lower pain scale. Do not exceed 4 grams of acetaminophen in a 24 hr period. Max dose of 2gm for AST/ALT greater than 120 units/L. If given for pain, use the following pain scale: Mild Pain = Pain Score of 1-3, CPOT 1-2 Moderate Pain = Pain Score of 4-6, CPOT 3-4 Severe Pain = Pain Score of 7-10, CPOT 5-8 1115 (Given - Provid er: Kunal Velasquez RN) amLODIPine (NORVASC) tablet 10 mg(Linked Group 1) 10 mg, Oral, Every 24 Hours Scheduled, First dose on Sun01/21/25 at 1315, Caution: Look alike/sound alike drug alert. Avoid grapefruit juice. 1346 (Not Given - Pr ovider: Kunal Velasquez RN - Reason: Order parameters not met) aspirin EC tablet 81 mg 81 mg, Oral, Every 12 Hours Scheduled, First dose on Sun01/22/25 at 0900, Do not crush or chew the capsules or tablets. The drug may not work as designed if the capsule or tablet is crushed or chewed. Swallow whole. Do not exceed 4 grams of aspirin in a 24 hr period. If given for pain, use the following pain scale: Mild Pain = Pain Score of 1-3, CPOT 1-2 Moderate Pain = Pain Score of 4-6, CPOT 3-4 Severe Pain = Pain Score of 7-10, CPOT 5-8, Indications: VTE Prophylaxis atorvastatin (LIPITOR) tablet 20 mg 20 mg, Oral, Daily, First dose on Sun01/21/25 at 1315, Avoid grapefruit juice. ceFAZolin 1000 mg IVPB in 100 mL NS (MBP) (COMPLETED) 1,000 mg, Intravenous, Administer over 30 Minutes, Once, On Sun01/21/25 at 0921, For 1 dose, Administer this med on arrival to the PACU. Caution: Look alike/sound alike drug alert, Indications: Surgical Prophylaxis 0935 (New Bag - Prov ider: Liseth Barreto RN) ceFAZolin 2000 mg IVPB in 100 mL NS (MBP) (COMPLETED) 2 g, Intravenous, Administer over 30 Minutes, Once, On Sun01/21/25 at 0557, For 1 dose, Administer within 1 hour of surgical incision. Redose 4 hours from pre-op dose if procedure ongoing or >1.5 L blood loss. Caution: Look alike/sound alike drug alert, Indications: Surgical Prophylaxis 0742 (New Bag - Prov ider: Iam El CRNA) ceFAZolin 2000 mg IVPB in 100 mL NS (MBP) 2,000 mg, Intravenous, Administer over 30 Minutes, Every 8 Hours, First dose on Sun01/21/25 at 1600, For 2 doses, Caution: Look alike/sound alike drug alert, Indications: Surgical Prophylaxis 1532 (New Bag - Prov ider: Kunal Velasquez RN) ethyl alcohol 62 % 2 each (COMPLETED) 2 each (2 Swab), Nasal, Once, On Sun01/21/25 at 0557, For 1 dose, Administer 15-60 minutes prior to surgery following these steps: Clean nostrils with a tissue, apply a 62% ethyl alcohol swab to the right nostril gently rotating the swab for 30 seconds, repeat the process with the 2nd swab in the left nostril. 0716 (Given - Provid er: Mikayla Stoddard RN) famotidine (PEPCID) tablet 20 mg (COMPLETED) 20 mg, Oral, Once, On Sun01/21/25 at 0557, For 1 dose 0631 (Given - Provid er: Mikayla Stoddard RN) meloxicam (MOBIC) tablet 15 mg 15 mg, Oral, Daily, First dose on Sun01/21/25 at 1025, Take with food. If given for pain, use the following pain scale: Mild Pain = Pain Score of 1-3, CPOT 1-2 Moderate Pain = Pain Score of 4-6, CPOT 3-4 Severe Pain = Pain Score of 7-10, CPOT 5-8 1115 (Given - Provid er: Kunal Velasquez RN) pregabalin (LYRICA) capsule 75 mg (COMPLETED) 75 mg, Oral, Once, On Sun01/21/25 at 0557, For 1 dose, {RYAN} 0631 (Given - Provid er: Mikayla Stoddard RN) primidone (MYSOLINE) tablet 50 mg 50 mg, Oral, 2 Times Daily, First dose on Sun01/21/25 at 1315 1348 (Not Given - Pr ovider: Kunal Velasquez RN - Reason: Patient/family refused) propranolol (INDERAL) tablet 40 mg 40 mg, Oral, Every 12 Hours Scheduled, First dose on Sun01/21/25 at 1315 1348 (Not Given - Pr ovider: Kunal Velasquez RN - Reason: Order parameters not met) tranexamic acid 1000 mg in 100 mL 0.7% NaCl infusion (premix) (COMPLETED) 1,000 mg, Intravenous, Administer over 30 Minutes, Once, On Sun01/21/25 at 0557, For 1 dose, Give prior to incision. 0744 (New Bag - Prov ider: Iam El CRNA)0829 (Bolus - Provider: Iam El CRNA) valsartan (DIOVAN) tablet 160 mg(Linked Group 1) 160 mg, Oral, Every 24 Hours Scheduled, First dose on Sun01/21/25 at 1315 1346 (Not Given - Pr ovider: Kunal Velasquez RN - Reason: Order parameters not met) Continuous Medication Order 01/19/2025 01/20/2025 01/21/2025 lactated ringers infusion 9 mL/hr, Intravenous, Continuous, Starting on Jolie 01/22/25 at 0600, For 1 day, May switch to NS IV at KVO if renal / if indicated 0625 (New Bag - Prov ider: Mikayla Stoddard RN)0725 (Currently Infusing - Provider: Iam El CRNA)0840 (Paused - Provider: Iam El CRNA - Comment: Switch to gravity)0841 (Restarted - Provider: Iam El CRNA)0919 (Anesthesia Volume Adjustment - Provider: Iam El CRNA)193 (Due: Order Ending - Provider: Automatic Discharge Provider - Comment: [Order ends at this time. Document the following action when infusion is complete: Stopped]) PRN Medication Order 01/19/2025 01/20/2025 01/21/2025 albuterol (PROVENTIL) nebulizer solution 0.083% 2.5 mg/3mL 2.5 mg, Nebulization, Every 6 Hours PRN, Shortness of Air, Wheezing, Starting on Sun01/21/25 at 1214 fentaNYL citrate (PF) (SUBLIMAZE) injection 50 mcg (CANCELED) 50 mcg, Intravenous, Every 5 Minutes PRN, Moderate Pain, Starting on Sun01/21/25 at 0911, For 5 doses, If given for pain, use the following pain scale: Mild Pain = Pain Score of 1-3, CPOT 1-2 Moderate Pain = Pain Score of 4-6, CPOT 3-4 Severe Pain = Pain Score of 7-10, CPOT 5-8 0949 (Given - Provid er: Liseth Barreto RN) HYDROmorphone (DILAUDID) injection 0.5 mg(Linked Group 2) 0.5 mg, Intravenous, Every 2 Hours PRN, Severe Pain, Starting on Sun01/21/25 at 1023, For 10 days, {RYAN} Caution: Look alike/sound alike drug alert If given for pain, use the following pain scale: Mild Pain = Pain Score of 1-3, CPOT 1-2 Moderate Pain = Pain Score of 4-6, CPOT 3-4 Severe Pain = Pain Score of 7-10, CPOT 5-8 labetalol (NORMODYNE,TRANDATE) injection 10 mg 10 mg, Intravenous, Every 4 Hours PRN, High Blood Pressure, SBP>180, DBP>110, Starting on Sun01/21/25 at 1221, Give IV Push over 2 minutes. lidocaine PF 1% (XYLOCAINE) injection 0.5 mL (COMPLETED) 0.5 mL, Injection, Once As Needed, IV Start, Starting on Sun01/21/25 at 0554, For 1 dose 0625 (Given - Provid er: Mikayla Stoddard RN) naloxone (NARCAN) injection 0.1 mg(Linked Group 2) 0.1 mg, Intravenous, Every 5 Minutes PRN, Respiratory Depression, Starting on Sun01/21/25 at 1023, If respiratory rate is less than 8 breaths/minute or patient is difficult to arouse stop any narcotics and contact physician. Administer slow IV push. Repeat as ordered until patient's respiratory rate is greater than 12 breaths/minute. ondansetron (ZOFRAN) injection 4 mg(Linked Group 3) 4 mg, Intravenous, Every 6 Hours PRN, Nausea, Vomiting, Starting on Sun01/21/25 at 1023, If BOTH ondansetron (ZOFRAN) and promethazine (PHENERGAN) are ordered use ondansetron first and THEN promethazine IF ondansetron is ineffective. ondansetron ODT (ZOFRAN-ODT) disintegrating tablet 4 mg(Linked Group 3) 4 mg, Oral, Every 6 Hours PRN, Nausea, Vomiting, Starting on Sun01/21/25 at 1023, If BOTH ondansetron (ZOFRAN) and promethazine (PHENERGAN) are ordered use ondansetron first and THEN promethazine IF ondansetron is ineffective. Place on tongue and allow to dissolve. oxyCODONE (ROXICODONE) immediate release tablet 10 mg 10 mg, Oral, Every 4 Hours PRN, Severe Pain, Starting on Sun01/21/25 at 1023, For 10 days, If given for pain, use the following pain scale: Mild Pain = Pain Score of 1-3, CPOT 1-2 Moderate Pain = Pain Score of 4-6, CPOT 3-4 Severe Pain = Pain Score of 7-10, CPOT 5-8 oxyCODONE (ROXICODONE) immediate release tablet 5 mg 5 mg, Oral, Every 4 Hours PRN, Moderate Pain, Starting on Sun01/21/25 at 1023, For 10 days, {RYAN} If given for pain, use the following pain scale: Mild Pain = Pain Score of 1-3, CPOT 1-2 Moderate Pain = Pain Score of 4-6, CPOT 3-4 Severe Pain = Pain Score of 7-10, CPOT 5-8 povidone iodine (SURGIPHOR) 0.05 % in sodium chloride (CANCELED) As Needed, Starting on Sun01/21/25 at 0804 0804 (Given - Provid er: Tommy Joyce MD) sodium chloride (NS) irrigation solution (CANCELED) As Needed, Starting on Sun01/21/25 at 0804 0804 (Given - Provid er: Tommy Joyce MD) sodium chloride 0.9 % bolus 500 mL 500 mL, Intravenous, at 250 mL/hr, Administer over 2 Hours, 3 Times Daily PRN, for SBP less than 90, Starting on Sun01/21/25 at 1221 1345 (New Bag - Prov ider: Kunal Velasquez RN - Comment: /57) sodium chloride 20 mL, lidocain 0.5%-EPINEPHrine [id number] 20 mL, ropivacaine 0.5 % 20 mL, ketorolac 30 mg, Morphine sulfate (PF) 2 mL mixture (CANCELED) As Needed, Starting on Sun01/21/25 at 0824 0824 (Given - Provid er: Tommy Joyce MD) Linked Groups Order Group 1: amLODIPine (NORVASC) tablet 10 mgJump to med 10 mg, Oral, Every 24 Hours Scheduled, First dose on Sun01/21/25 at 1315, Caution: Look alike/sound alike drug alert. Avoid grapefruit juice. And valsartan (DIOVAN) tablet 160 mgJump to med 160 mg, Oral, Every 24 Hours Scheduled, First dose on Sun01/21/25 at 1315 Group 2: HYDROmorphone (DILAUDID) injection 0.5 mgJump to med 0.5 mg, Intravenous, Every 2 Hours PRN, Severe Pain, Starting on Sun01/21/25 at 1023, For 10 days, {RYAN} Caution: Look alike/sound alike drug alert If given for pain, use the following pain scale: Mild Pain = Pain Score of 1-3, CPOT 1-2 Moderate Pain = Pain Score of 4-6, CPOT 3-4 Severe Pain = Pain Score of 7-10, CPOT 5-8 And naloxone (NARCAN) injection 0.1 mgJump to med 0.1 mg, Intravenous, Every 5 Minutes PRN, Respiratory Depression, Starting on Sun01/21/25 at 1023, If respiratory rate is less than 8 breaths/minute or patient is difficult to arouse stop any narcotics and contact physician. Administer slow IV push. Repeat as ordered until patient's respiratory rate is greater than 12 breaths/minute. Group 3: ondansetron ODT (ZOFRAN-ODT) disintegrating tablet 4 mgJump to med 4 mg, Oral, Every 6 Hours PRN, Nausea, Vomiting, Starting on Sun01/21/25 at 1023, If BOTH ondansetron (ZOFRAN) and promethazine (PHENERGAN) are ordered use ondansetron first and THEN promethazine IF ondansetron is ineffective. Place on tongue and allow to dissolve. Or ondansetron (ZOFRAN) injection 4 mgJump to med 4 mg, Intravenous, Every 6 Hours PRN, Nausea, Vomiting, Starting on Sun01/21/25 at 1023, If BOTH ondansetron (ZOFRAN) and promethazine (PHENERGAN) are ordered use ondansetron first and THEN promethazine IF ondansetron is ineffective. 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
--- OUTSIDE RECORDS SUMMARY | 2025-01-21 07:15 | XMS_ITS | Encounter Summary ---
[facility] [address] [place] [address] Care Team Providers Care Manager Information Name Role Phone Marcelo Vigil MD Primary Care Provider [phone] Reason for Visit * Auth/Cert Specialty Diagnoses / Procedures Referred By Contac t Referred To Contact Diagnoses Primary osteoarthritis of right hip Primary osteoarthritis of right hip [M16.11] Procedures MO ARTHRP ACETBLR/PROX FEM PROSTC AGRFT/ALGRFT TOTAL HIP ARTHROPLASTY RIGHT Referral ID Status Reason Start Date Expiration Date Visits Re quested Visits Authorized [id number] 1 1 Encounter Details Date Type Department Care Team (Late st Contact Info) Description 01/21/2025 7:15 AM EDT - 01/21/2025 9:43 AM EDT Surgery [facility] [address] [place] [address] Tommy Joyce MD [address] [id number] TOTAL HIP ARTHROPLASTY RIGHT [48763 (CPT )] Social History Tobacco Use Types Packs/Day Years [...] or training? Not on file Preferred Language Belizean 01/08/2025 Comments No Sex and Gender Information Value Date Recorded Sex Assigned at Not on file Legal Sex Female 10:29 AM EDT Gender Identity Not on file Sexual Orientation Not on file documented as of this encounter Last Filed Vital Signs Vital Sign Reading Time Taken Comments Blood Pressure 169/78 01/21/2025 9:30 AM EDT Pulse 70 01/21/2025 9:30 AM EDT Temperature 36.8 C (98.2 F) 01/21/2025 9:30 AM EDT Respiratory Rate 16 01/21/2025 9:30 AM EDT Oxygen Saturation 97% 01/21/2025 9:30 AM EDT Inhaled Oxygen Concentration - - Weight [...] 6:22 AM EDT Mikayla Stoddard RN * [place] Suicide Severity Rating Scale (Screener/Recent Self-Report) Question Answer Date of Assessment Author 6. Suicidal Behavior (Lifetime) No 6:22 AM EDT [place], Mikayla L, RN documented as of this encounter Discharge [...] obtain [facility]. [facility] [...] this at your local pharmacy as an wytr-mck-sizmxpl medication. Please abide by the instructions as printedon the bottle. If your nausea persists, make sure to take small amounts of crackers or other ambulance driver foods. Follow-Up Follow-up with Dr. Joyce's office in 3 weeks from the surgery date for a post- operative evaluation. Have the following xrays done upon arrival to the follow- up appointment: AP pelvis. Please call Dr. Jyoce's office at for orthopaedic appointments or questions.SMI [...] Your SMI Cold Therapy Wrap is effectiveand ciymio-lg-kuu, and you will be encouraged to apply [...] results, lay the Gel Bags flat and vwvf-ud-ctas in the freezer. Once frozen, slide Gel [...] skin, as this maycause frostbite injury. The [facility] Cold Therapy Wrap is designed to be able to be worm while ambulating. The compression straps can be secured well enough so that the Wrap won't fall off while moving. Wrap Application Videos can be viewed at [employer]. An additional protective barrier such as clothing, a washcloth, hand-towel or pillowcase may be used during prolonged treatment applications. The Gel-Pouch and Wrap are both Latex-Free and the Gel Bag ingredients are non toxic. [facility] Wrap care instructions The [facility] Cold Therapy Wrap may be hand washed and hung to dry when needed. [facility] re-order information Additional [facility] body specific wraps and/or Gel Bags can be re-ordered from [employer] or call [phone] ([phone]) * Attachments The following attachments cannot be sent through Care Everywhere. * Hip Arthroscopy Care After (Belizean) * Spinal Anesthesia and Epidural Anesthesia Care After Wvar-fm-Mtql (Belizean) * How to Prevent Constipation After Surgery (Belizean) * How to Use an Incentive Spirometer (Belizean) * Aspirin Tablets (Belizean) * Docusate; Senna Tablets (Belizean) * Meloxicam Tablets (Belizean) * Oxycodone Capsules or Tablets (Belizean) documented in this encounter Medications at Time [...] mouth 2 (Two) Times a Day. 12/23/2024 Smithwick-3 Fatty Acids (fish oil) 1000 MG capsule [...] of this encounter H&P Notes * Yessica English APRN - 01/21/2025 12:09 PM EDT Patient Name: [...] Take 1 tablet by mouth Daily. 01/20/2025 Smithwick-3 Fatty Acids (fish oil) 1000 MG capsule [...] children. 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 Review of Systems All systems were reviewed [...] 6:44 AM EDT Pre-Op H&P Tess Nina [phone] Chief complaint: R hip pain HPI: [...] tablet Take 1 tablet by mouth Daily. Smithwick-3 Fatty Acids (fish oil) 1000 MG capsule [...] home with outpatient therapy services * Asuncion Hart PT - 01/21/2025 1:10 PM EDT Goal [...] Number Phone Number for Ride/Caregiver: GERALDO NINA [phone] documented in this encounter OR Notes * Op Note - Tommy Joyce MD - 01/21/2025 7:53 AM EDT OPERATIVE REPORT DATE OF PROCEDURE: 01/21/2025 SURGEON: Tommy Joyce M.D. CREDIT COLLECTIONS SPECIALIST(S): Family Manager: Perla Licona RN Scrub Person: Vidya Klein Lens Hardener: Cher Parkinson Medical Instrument Technician: Nguyễn Molina PA-C Medical Instrument Technician: Nguyễn Molina PA-C Note-PA was utilized during [...] BLOOD LOSS: 200 cc SPECIMENS: None IMPLANTS: Legend Maker: Greg Acetabular component: 50 mm Trident 2 [...] limited and rotation severely restricted. X-rays reveal evofmbso-rj-zslmrz eburnation of articular cartilage on the superior [...] flexion past 90 degrees, 20 degrees adduction [id number] degrees of internal rotation. Leg lengths were [...] Surgeon(s): Tommy Joyce MD Anesthesia: Spinal Staff: Family Manager: Perla Licona RN Scrub Person: Vidya Klein Lens Hardener: Cher Parkinson Medical Instrument Technician: Nguyễn Molina PA-C Medical Instrument Technician: Nguyễn Molina PA-C Estimated Blood Loss: 200ml Urine Voided: * No values recorded between 01/21/2025 7:24 AM and 01/21/2025 8:51 AM * Specimens: None Drains: * No LDAs found * Findings: End-stage osteoarthritis right hip Complications: None apparent Medical Instrument Technician: Nguyễn Molina PA-C was responsible for performing [...] FINGER RELEASE General Information Row Name 01/21/25 1649 OT Time and Intention Document Type evaluation -AR Mode of Treatment individual therapy;occupational therapy -AR Row Name 01/21/25 164 General Information Prior Level of Function independent:;all household mobility;community mobility;gait;transfer;ADL's using straight cane PRN -AR Existing Precautions/Restrictions fall;right;hip, posterior -AR Barriers to Rehab none identified -AR Row Name 01/21/25 164 Living Environment Current Living Arrangements apartment -AR People in Home alone -AR Row Name 01/21/25 1649 Home Main Entrance Number of Stairs, Main Entrance one -AR Stair Railings, Main Entrance none -AR Row Name 01/21/25 1649 Stairs Within Home, Primary Stairs, Within Home, Primary Pt has tub/shower with bath bench and BSC frame palced over commode. -AR Row Name 01/21/25 164 Cognition Orientation Status (Cognition) oriented x 4 -AR Row Name 01/21/25 164 Safety Issues/Impairments Affecting Functional Mobility Safety Issues Affecting Function (Mobility) awareness of need for assistance;impulsivity;safety precaution awareness;safety precautions follow- through/compliance -AR Impairments Affecting Function (Mobility) balance;endurance/activity tolerance;strength;pain;range of motion (ROM) -AR User Shannon (r) = Recorded By, (t) = Taken By, (c) = Cosigned By Initials Name Provider Type AR Yessica Freeman OT Occupational Therapist Mobility/ADL's Row Name 01/21/25 299 Bed Mobility Comment, (Bed Mobility) Educated pt and son on use of leg hand sign writer to assist with bd mobility, car transfers and tub transfers. She declined need for device and declined trial. -AR Row Name 01/21/251649 Transfers Transfers sit-stand transfer;stand-sit transfer -AR Comment, (Transfers) Educated pt and son on safe car transfer technique. She required cues for handplacement and to advance RLE during tnesq-kb-kch transition. -AR Row Name 01/21/251649 Sit-Stand Transfer Sit-Stand [place] (Transfers) contact guard;verbal cues -AR Assistive Device (Sit-Stand Transfers) walker, front-wheeled -AR Row Name 01/21/251649 Stand-Sit Transfer Stand-Sit [place] (Transfers) contact guard;verbal cues -AR Assistive Device (Stand-Sit Transfers) walker, front-wheeled -AR Row Name 01/21/251649 Activities of Daily Living BADL Assessment/Intervention lower body dressing;bathing;upper body dressing -AR Row Name 01/21/251649 Mobility Extremity Weight-bearing Status right lower extremity -AR Right Lower Extremity (Weight-bearing Status) weight-bearing as tolerated (WBAT) -AR Row Name 01/21/251649 Lower Body Dressing Assessment/Training [place] Level (Lower Body Dressing) don;pants/bottoms;maximum assist (25% [...] Row Name 01/21/251649 Upper Body Dressing Assessment/Training [place] Level (Upper Body Dressing) doff;front opening garment;don;bra/undergarment;pull-over garment;supervision -AR Position (Upper Body Dressing) supported sitting -AR User Shannon (r) = Recorded By, (t) = Taken By, (c) = Cosigned By Initials Name Provider Type Yessica Jaime, OT Occupational Therapist Obj/Interventions Row Name 01/21/251653 Sensory Assessment (Somatosensory) Sensory Assessment (Somatosensory) UE sensation intact -AR [facility] Name 01/21/251653 Vision Assessment/Intervention Visual Impairment/Limitations WNL;corrective lenses full-time -[facility] 01/21/251653 Range of Motion Comprehensive General Range of Motion no range of motion deficits identified -[facility] 01/21/251653 Strength Comprehensive (MMT) General Manual Muscle Testing (MMT) Assessment no strength deficits identified -[facility] 01/21/251653 Balance Balance Assessment sitting static balance;sitting [...] Provider Type Yessica Jaime, OT Occupational Therapist Goals/Plan [facility] 01/21/251655 Transfer Goal 1 (OT) Activity/Assistive Device (Transfer Goal 1, OT) qgp-lp-mbvue/vukcg-uf-pmx;toilet -AR [place] Level/Cues Needed (Transfer Goal 1, OT) contact guard required;verbal cues required -AR Time Frame (Transfer Goal 1, OT) 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);2 days -AR Progress/Outcome (Transfer Goal 1, OT) goal ongoing -AR [facility] 01/21/251655 Dressing Goal 1 (OT) Activity/Device (Dressing Goal 1, OT) lower body dressing;cotton stomper;sock-aid -AR [place]/Cues Needed (Dressing Goal 1, OT) verbal cues required;contact guard required -AR Time Frame (Dressing Goal 1, OT) short term goal (STG);1 day -AR Progress/Outcome (Dressing Goal 1, OT) goal ongoing -[facility] 01/21/251655 Problem Specific Goal 1 (OT) Problem Specific Goal 1 (OT) Pt will recall/maintain PHP during ADL activity with max 2 vc -AR Time Frame (Problem Specific Goal 1, OT) short term goal (STG);2 days -AR Progress/Outcome (Problem Specific Goal 1, OT) goal ongoing -[facility] 05/28/25 1656 Therapy Assessment/Plan (OT) Planned Therapy Interventions (OT) adaptive equipment training;BADL retraining;functional balance retraining;IADL retraining;occupation/activity based interventions;patient/caregiver education/training;transfer/mobility retraining -AR User Shannon (r) = Recorded By, (t) = Taken By, (c) = Cosigned By Initials Name Provider Type Yessica Jaime, OT Occupational Therapist Clinical Impression Row Name 01/21/251653 Pain Assessment Pretreatment Pain Rating 10 -AR Posttreatment Pain Rating 09/05 -AR Pain [...] (OT) Anticipated Discharge Disposition (OT) home with 19/03 care -AR Row Name 01/21/251653 Vital Signs [...] OT Occupational Therapist Outcome Measures Row Name 01/21/251657 How much help from another is currently [...] or More Minutes)-5 -TB Row Name 01/21/25 1658 01/21/25 1549 Functional Assessment Outcome Measure Options AM-PAC 6 Clicks Daily Activity (OT) -AR AM-PAC 6 Clicks Basic Mobility (PT)-ND Row Name 01/21/25 1413 Functional Assessment Outcome Measure Options AM-PAC 6 Clicks Basic Mobility (PT);PADD -ND User Shannon (r) = Recorded By, (t) = Taken By, (c) = Cosigned By Initials Name Provider Type AR Yessica Freeman OT Occupational Therapist Kunal Bales, RN Registered Nurse Asuncion Menezes, PT Physical Therapist Occupational Therapy Education Title: PT OT TOBACCO SAMPLER Therapies (Done) Topic: Occupational Therapy (Done) Point: [...] Shannon Initials Effective Dates Name Provider Type [facility] 03/06/23 - Yessica Freeman OT Occupational Therapist [...] Due Date 01/31/25 -AR -- Timed Charges 81005 - Gait Training Minutes -- 13 -ND 35792 - OT Self Care/Mgmt Minutes 12 -AR -- Untimed Charges OT Eval/Re-eval Minutes 59 -AR -- Total Minutes Timed Charges Total Minutes 12 -AR 13 -ND Untimed Charges Total Minutes 59 -AR -- Total Minutes 71 -AR 13 -ND User Shannon (r) = Recorded By, (t) = Taken By, (c) = Cosigned By Initials Name Provider Type AR Yessica Freeman, OT Occupational Therapist ND Asuncion Hart, PT Physical Therapist Therapy Charges for Today Code Description Service Date Service Provider Modifiers Qty 49228993056 HC OT SELF CARE/MGMT/TRAIN EA 15 MIN 01/21/2025 Yessica Freeman OT GO 1 [id number] OT EVAL LOW COMPLEXITY 4 01/21/2025 Yessica [...] Mobility Bed Mobility -- supine-sit -ND Supine-Sit [place] (Bed Mobility) -- minimum assist (75% patient effort);verbal cues;nonverbalcues (demo/gesture) -ND Assistive Device (Bed Mobility) -- bed rails;head of bed elevated -ND Comment, (Bed Mobility) Found and left sitting UIC. -ND Increased time and effort for task. Min-A to bring trunk upright. -ND Row Name 01/21/25 1544 01/21/25 1404 Sit-Stand Transfer Sit-Stand [place] (Transfers) contact guard;verbal cues;nonverbal cues (demo/gesture) -ND -- Assistive Device (Sit-Stand Transfers) walker, front-wheeled -ND -- Comment, (Sit-Stand Transfer) from chair, from toilet -ND -- -ND Row Name 01/21/25 1340 Sit-Stand Transfer Sit-Stand [place] (Transfers) contact guard;verbal cues;nonverbal cues (demo/gesture) -ND Assistive Device (Sit-Stand Transfers) walker, front-wheeled -ND Comment, (Sit-Stand Transfer) x1 from EOB, x2 from toilet. -ND Row Name 01/21/25 1544 01/21/25 1340 Gait/Stairs (Locomotion) [place] Level (Gait) contact guard;nonverbal cues (demo/gesture);verbal cues [...] Deviations -- weight shift ability decreased -ND [place] Level (Stairs) contact guard;verbal cues;nonverbal cues (demo/gesture) -ND -- Assistive Device (Stairs) walker, front-wheeled -ND -- Handrail Location (Stairs) none -ND -- Number of Steps (Stairs) 1 -ND -- Ascending Technique (Stairs) wzmc-sl-xhvs -ND -- Descending Technique (Stairs) ziuw-ia-mkqa -ND -- Comment, (Gait/Stairs) Pt ambulates 250' [...] Type Asuncion Menezes PT Physical Therapist Obj/Interventions Row Name 01/21/25 140 Range of Motion Comprehensive General Range of [...] right;heel slides;10 repetitions -ND Row Name 01/21/25 154 Knee (Therapeutic Exercise) Knee (Therapeutic Exercise) isometric [...] Type ND Dauterman, Asuncion, PT Physical Therapist Goals/Plan Row Name 01/21/25 1411 Bed Mobility Goal 1 (PT) Activity/Assistive Device (Bed Mobility Goal 1, PT) sit to supine/supine to sit -ND [place] Level/Cues Needed (Bed Mobility Goal 1, PT) modified independence -ND Time Frame (Bed Mobility Goal 1, PT) short term goal (STG);1 day -ND Row Name 01/21/25 141 Transfer Goal 1 (PT) Activity/Assistive Device (Transfer Goal 1, PT) gfz-se-uxvvz/flljv-pj-bht;mau-zm-sexxh/ofyiy-vb-lww-ND [place] Level/Cues Needed (Transfer Goal 1, PT) modified independence -ND Time Frame (Transfer Goal 1, PT) snf goal (LTG);3 days -ND Row Name 01/21/25 141 Gait Training Goal 1 (PT) Activity/Assistive Device (Gait Training Goal 1, PT) gait (walking locomotion);increase endurance/gait distance;decrease fall risk -ND [place] Level (Gait Training Goal 1, PT) modified independence -ND Distance (Gait Training Goal 1, PT) 300 -ND Time Frame (Gait Training Goal 1, PT) snf goal (LTG);3 days -ND Row Name 01/21/25 141 Stairs Goal 1 (PT) Activity/Assistive Device (Stairs Goal 1, PT) ascending stairs;descending stairs -ND [place] Level/Cues Needed (Stairs Goal 1, PT) modified independence -ND Number of Stairs (Stairs Goal 1, PT) 1 -ND Time Frame (Stairs Goal 1, PT) snf goal (LTG);3 days -ND Row Name 01/21/25 [...] 1546 01/21/25 1409 Pain Pretreatment Pain Rating 10 -ND /10 -ND Posttreatment Pain Rating 3/10 -ND 5/10 [...] pain -ND Row Name 01/21/25 1546 01/21/25 1409 Plan of Care Review Plan [...] cleared by PT. -ND Row Name 01/21/25 1404 Therapy Assessment/Plan (PT) Patient/Family Therapy Goals Statement [...] rehabilitation -ND Row Name 01/21/25 1549 01/21/25 1413 Functional Assessment Outcome Measure Options AM-PAC 6 Clicks Basic Mobility (PT) -ND AM-PAC 6 Clicks Basic Mobility (PT);PADD -ND User Shannon (r) = Recorded By, (t) = Taken By, (c) = Cosigned By Initials Name Provider Type TB Kunal Velasquez, RN Registered Nurse Asuncion Menezes, PT Physical Therapist Physical Therapy Education Title: PT OT TOBACCO SAMPLER Therapies (In Progress) Topic: Physical Therapy (Done) Point: Mobility training (Done) Learning Progress Summary Patient Acceptance, E, VU by ND at 01/21/2025 1549 Acceptance, E, VU by ND at 01/21/2025 1413 Point: Home exercise program (Done) Learning Progress Summary Patient Acceptance, E, VU by ND at 01/21/2025 1549 Point: Body mechanics (Done) Learning Progress Summary Patient Acceptance, E, VU by ND at 01/21/2025 1549 Acceptance, E, VU by ND at 01/21/2025 1413 Point: Precautions (Done) Learning Progress Summary Patient Acceptance, E, VU by ND at 01/21/2025 1549 Acceptance, E, VU by ND at 01/21/2025 1413 User Shannon Initials Effective Dates Name Provider Type Discipline ND 07/12/23 - Asuncion Hart, VALERIE Physical Therapist PT PT Recommendation and Plan [...] Due Date -- 01/31/25 -ND Timed Charges 03565 - PT Therapeutic Exercise Minutes 10 -- 81032 - Gait Training Minutes 13 -ND -- Untimed Charges PT Eval/Re-eval Minutes -- [...] Description Service Date Service Provider Modifiers Qty 84151746876 HC PT EVAL LOW COMPLEXITY 4 01/21/2025 Asuncion Hart, PT GP 1 88628731117 HC PT THER SUPP EA 15 MIN 01/21/2025 Asuncion Hart, PT GP 3 80595609161 HC PT THER PROC EA 15 MIN 01/21/2025 Asuncion Hart, PT GP 1 40279165874 HC GAIT TRAINING EA 15 MIN 01/21/2025 Asuncion Hart, PT GP 1 13798250688 HC PT THER SUPP EA 15 MIN 01/21/2025 Asuncion Hart, PT GP 2 PT G-Codes Outcome Measure Options: AM-PAC 6 Clicks Basic Mobility (PT) AM-PAC 6 Clicks Score (PT): 18 PT Discharge Summary Anticipated Discharge Disposition (PT): home with 24/7 care, home with outpatient therapy services Asuncion Hart PT 01/21/2025 * Therapy Evaluation - AubreyraulAsuncion zhang, PT - 01/21/2025 1:10 PM EDT Images [...] Bed Mobility Bed Mobility supine-sit -ND Supine-Sit [place] (Bed Mobility) minimum assist (75% patient effort);verbal cues;nonverbal cues (demo/gesture) -ND Assistive Device (Bed Mobility) bed rails;head of bed elevated -ND Comment, (Bed Mobility) Increased time and effort for task. Min-A to bring trunk upright. -SD Row Name 01/21/25 1404 01/21/25 1340 Sit-Stand Transfer Sit-Stand [place] (Transfers) -- contact guard;verbal cues;nonverbal cues (demo/gesture) -ND Assistive Device (Sit-Stand Transfers) -- walker, front-wheeled -ND Comment, (Sit-Stand Transfer) -- -ND x1 from EOB, x2 from toilet. -ND Row Name 01/21/25 1340 Gait/Stairs (Locomotion) [place] Level (Gait) contact guard;verbal cues;nonverbal cues (demo/gesture);1 [...] with BP drop, RN aware and managing. -SD Row Name 01/21/25 1340 Mobility Extremity Weight-bearing Status right lower extremity -ND Right Lower Extremity (Weight-bearing Status) weight-bearing as tolerated (WBAT) -ND User Shannon (r) = Recorded By, (t) = Taken By, (c) = Cosigned By Initials Name Provider Type Asuncion Menezes, VALERIE Physical Therapist Obj/Interventions Row Name 01/21/25 1408 Range of Motion Comprehensive General Range of Motion bilateral lower extremity ROM WFL -[facility] Name 01/21/25 1408 Strength Comprehensive (MMT) General Manual Muscle Testing (MMT) Assessment lower extremity strength deficits identified -ND Comment, General Manual Muscle Testing (MMT) Assessment Bilateral DF and LAQ performed. -SD Row Name 01/21/25 1408 Balance Balance Assessment [...] Balance No knee buckling or LOB noted. -SD Row Name 01/21/25 1408 Sensory Assessment (Somatosensory) Sensory Assessment (Somatosensory) LE sensation intact -ND User Shannon (r) = Recorded By, (t) = Taken By, (c) = Cosigned By Initials Name Provider Type Asuncion Menezes PT Physical Therapist Goals/Plan Row Name 01/21/25 1411 Bed Mobility Goal 1 (PT) Activity/Assistive Device (Bed Mobility Goal 1, PT) sit to supine/supine to sit -ND [place] Level/Cues Needed (Bed Mobility Goal 1, PT) modified independence -ND Time Frame (Bed Mobility Goal 1, PT) short term goal (STG);1 day -SD Row Name 01/21/25 141 Transfer Goal 1 (PT) Activity/Assistive Device (Transfer Goal 1, PT) mch-wl-zlaru/lfxie-bg-ndm;efa-gv-fqpis/exnym-fg-kqt-ND [place] Level/Cues Needed (Transfer Goal 1, PT) modified independence -ND Time Frame (Transfer Goal 1, PT) snf goal (LTG);3 days -ND Row Name 01/21/25 141 Gait Training Goal 1 (PT) Activity/Assistive Device (Gait Training Goal 1, PT) gait (walking locomotion);increase endurance/gait distance;decrease fall risk -ND [place] Level (Gait Training Goal 1, PT) modified independence -ND Distance (Gait Training Goal 1, PT) 300 -ND Time Frame (Gait Training Goal 1, PT) 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);3 days -ND Row Name 01/21/25 141 Stairs Goal 1 (PT) Activity/Assistive Device (Stairs Goal 1, PT) ascending stairs;descending stairs -ND [place] Level/Cues Needed (Stairs Goal 1, PT) modified independence -ND Number of Stairs (Stairs Goal 1, PT) 1 -ND Time Frame (Stairs Goal 1, PT) 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 Point: Body mechanics (Done) Learning Progress Summary Patient Acceptance, E, VU by SD at 01/21/2025 141 Point: Precautions (Done) Learning Progress Summary Patient Acceptance, E, VU by SD at 01/21/2025 1413 User Shannon Initials Effective Dates Name Provider Type Discipline ND 07/12/23 - Asuncion Hart, VALERIE Physical Therapist PT PT Recommendation and Plan [...] Description Service Date Service Provider Modifiers Qty [id number] HC PT EVAL LOW COMPLEXITY 4 01/21/2025 Asuncion Hart, PT GP 1 16558974529 HC PT THER SUPP EA 15 MIN 01/21/2025 Asuncion Hart, PT GP 3 PT G-Codes Outcome Measure Options: AM-PAC 6 Clicks Basic Mobility (PT), PADD AM-PAC 6 Clicks Score (PT): 18 PT Discharge Summary Anticipated Discharge Disposition (PT): home with 19/03 care, home with outpatient therapy services Asuncion Hart, PT 01/21/2025 documented in this encounter Plan of Treatment Upcoming Encounters Date Type Department Care Team (Late st Contact Info) Description 05/12/2025 2:30 PM EDT Office Visit [facility] [address] [place] [address] Tommy Joyce MD [address] [place] [address] documented as of this encounter Goals Goal Patient Goal Type Associated Problems Recent Progress Patient-Stated? Author Autogenera kaushik Goal Care Plan Autogenerated Problem No Tommy Joyce MD documented as of this encounter Procedures Procedure Name Priority Date/Time Associated Diagnosis Comments XR PELVIS 1 OR 2 VW STAT 01/21/2025 9:41 AM EDT XR PELVIS 1 OR 2 VW Routine 01/21/2025 8:42 AM EDT MO ARTHRP ACETBLR/PROX FEM PROSTC AGRFT/ALGRFT 01/21/2025 7:09 [...] MD 01/21/2025 10:03 AM EDT Workstation ID: [id number] Narrative 01/21/2025 10:03 AM EDT XR PELVIS [...] MD 01/21/2025 10:03 AM EDT Workstation ID: [id number] Tommy Joyce MD [facility] [place] [facility] ORD[facility]bi [place] Final Result * XR Pelvis 1 or 2 View (01/21/2025 8:42 AM EDT) Anatomical Region Laterality Modality Body, Pelvis N/A Radiographic Arlet ging 01/21/2025 8:54 AM EDT Impressions 01/21/2025 8:57 AM EDT Impression: Expected appearance of ongoing right total hip arthroplasty. Electronically Signed: Estevan Greene MD 01/21/2025 8:57 AM EDT Workstation ID: [id number] Narrative 01/21/2025 8:57 AM EDT XR PELVIS [...] MD 01/21/2025 8:57 AM EDT Workstation ID: [id number] Tommy Joyce MD [facility] ORD[facility]bi [place] Final Result * Potassium (01/21/2025 6:24 AM EDT) Potassium 3.7 3.5 - 5.2 mmol/L 01/21/2025 6:47 AM EDT [facility] Comment:Slight hemolysis det ected by analyzer. Result may be falsely elevated. Blood Line / Unknown 01/21/2025 6: 24 AM EDT 01/21/2025 6:24 AM EDT Esha Seaman DO LAB BLOOD ORDERABLES Final Res ult Performing Organization Address City/[facility]/ZIP Co de Phone Number [facility]
[address] [place] [address], * POC Glucose Once (01/21/2025 6:19 AM EDT) Glucose 103 70 - 130 mg/dL 01/21/2025 6:31 AM EDT [facility] Blood 01/21/2025 6:19 AM EDT 01/21/2025 6:31 AM EDT Tommy Joyce MD POINT OF CARE TEST ORDERABL ES Final Result Performing Organization Address City/[facility]/ZIP Co de Phone Number [facility]
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 povidone iodine (SURGIPHOR) 0.05 % in sodium chloride As Needed, Starting on Sun01/21/25 at 0804 Given 01/21/2025 8:04 AM EDT 450 mL pregabalin (LYRICA) capsule 75 mg 75 mg, Oral, Once, On Sun01/21/25 at 0557, For 1 dose, {RYAN}Indications:Primary osteoarthritis of right hip Given 01/21/2025 6:31 AM EDT 75 mg sodium chloride (NS) irrigation solution As Needed, Starting on Sun01/21/25 at 0804 Given 01/21/2025 8:04 AM EDT 3,000 mL sodium chloride 0.9 % bolus 500 mL 500 mL, Intravenous, at 250 mL/hr, Administer over 2 Hours, 3 Times Daily PRN, for SBP less than 90, Starting on Sun01/21/25 at 1221 New Bag 01/21/2025 1:45 PM EDT 500 mL 250 mL/hr sodium chloride 20 mL, lidocain 0.5%-EPINEPHrine 1:304392 20 mL, ropivacaine 0.5 % 20 mL, ketorolac 30 mg, Morphine sulfate (PF) 2 mL mixture As Needed, Starting on Sun01/21/25 at 0824 Given 01/21/2025 8:24 AM EDT 63 mL Knee Right valsartan (DIOVAN) tablet 160 mg 160 mg, [...] day, May switch to NS IV at O if renal / if indicated 0625 (New Bag - Prov ider: Mikayla Stoddard RN)0725 (Currently Infusing - Provider: Iam El CRNA)0840 (Paused - Provider: Iam El CRNA - Comment: Switch to gravity)0841 (Restarted - Provider: Iam El CRNA)0919 (Anesthesia Volume Adjustment - Provider: Iam El CRNA)1930 (Due: Order Ending - Provider: Automatic Discharge [...] /57) sodium chloride 20 mL, lidocain 0.5%-EPINEPHrine 1:313418 20 mL, ropivacaine 0.5 % 20 mL, [...] documented as of this encounter Care Teams Manager Information Relationship Specialty Start Date End Date Marcelo Vigil MD [address] [place] [address] PCP - General 11/12/15 documented as of this encounter
--- OUTSIDE RECORDS SUMMARY | 2025-01-21 07:25 | XMS_ITS | Encounter Summary ---
Author Organization [facility] Address [address] [place] [address] Care Team Providers Care Solar Energy Consultant And Designer Name Role Phone Marcelo Vigil MD Primary Care Provider [phone] Reason for Visit * Auth/Cert Specialty Diagnoses / Procedures Referred By Contac t Referred To Contact Diagnoses Primary osteoarthritis of right hip Primary osteoarthritis of right hip [M16.11] Procedures ID ARTHRP ACETBLR/PROX FEM PROSTC AGRFT/ALGRFT TOTAL HIP ARTHROPLASTY RIGHT Referral ID Status Reason Start Date Expiration Date Visits Re quested Visits Authorized [id number] 1 1 Encounter Details Date Type Department Care Team (Late st Contact Info) Description 01/21/2025 7:25 AM EDT Anesthesia Event [facility] OR [address] [place] [address] Esha Seaman DO [address] [place] [address] Anesthesia Record Procedure Summary Procedure Name Responsible Anesthesiologist Anesthesia Start Time Anesthesia Stop Time TOTAL HIP ARTHROPLASTY RIGHT (Right: Hip) Esha Seaman DO 01/21/25 0725 01/21/25 0919 Events Date Time Event Comment 01/21/2025 0622 0700 AN Equip Check 0725 An Start The patient was reevaluated immediately before moderate or deep sedation use and before anesthesia induction. 0725 An Start Data 0735 Spinal Placed 0914 an stop data 0919 Handoff to RN The following has been completed: 1. Identification of Patient, veloz family member(s) or patient surrogate 2. Identification of the responsible Practitioner (primary service) 3. Discussion of the pertinent/attainable medical history 4. Discussion of the surgical/procedure course (procedure, reason for surgery, procedure performed) 5. Intraoperative anesthetic management and issue/concerns to include things such as airway, hemodynamics, narcotic, sedation level and paralytic management and intravenous fluids/blood products and urine output during the procedure 6. Expectations/Plans for the early post-procedure period to include things such as anticipated course (anticipatory guidance), complications, need for laboratory or ECG and medication administration 7. Opportunity for questions and acknowledgment of understanding of report from the receiving PACU/ICU team 0919 An Stop Meds Name Total propofol 10 MG/ML 401.54 mg lidocaine PF 1% 1 % 50 mg dexAMETHasone 4 MG/ML 8 mg ondansetron 2 mg/mL 4 mg phenylephrine 1000 MCG/10ML 700 mcg ceFAZolin 2000 mg IVPB in 100 mL NS (MBP ) 2 g Mepivacaine HCl (PF) (CARBOCAINE) 1.5 % injection 4 mL tranexamic acid 1000 mg in 100 mL 0.7% N aCl infusion (premix) 2,000 mg lactated ringers infusion 1,450 mL * Agents Name N2O Air * Blood No blood administrations on file. Lines, Drains, and Airways Type Details Placement Removal Wound 01/21/25; Right; anterior; hip; Surgical 01/21/25 0000 by Perla Licona RN Peripheral IV Placement Date: 12/26 04/20; Placement Time: 0625; Catheter Size: 18 G; Orientation: Left, Posterior; Location: Hand; Site Prep: Chlorhexidine; Local Anes: Injectable; Technique: Anatomical landmarks; Inserted by: DEBORAH TINSLEY RN; Insertion Attempts: 1; Patient Tolerance: Tolerated well; Removal Date: 01/21/25; Removal Time: 16101/21/25 0625 by Mikayla Stoddard RN 01/21/25 1610 by Kunal Velasquez RN documented in this encounter Social History Tobacco Use Types Packs/Day Years [...] or training? Not on file Preferred Language East Timorese 01/08/2025 Comments No Sex and Gender Information Value Date Recorded Sex Assigned at Not on file Legal Sex Female 10:29 AM EDT Gender Identity Not on file Sexual Orientation Not on file documented as of this encounter Functional Status * Question Answer [...] 6:22 AM EDT Mikayla Stoddard RN * [place] Suicide Severity Rating Scale (Screener/Recent Self-Report) Question Answer Date of Assessment Author 6. Suicidal Behavior (Lifetime) No 6:22 AM EDT Mikayla Stoddard RN documented as of this encounter OR Notes * Anesthesia Postprocedure Evaluation - Esha Seaman DO - 01/22/2025 10:20 AM EDT Patient: Tess Hastings Procedure Summary Date: 01/21/25 [facility] / [facility] Anesthesia Start: 724 Anesthesia Stop: 918 Procedure: TOTAL HIP ARTHROPLASTY RIGHT (Right: Hip) Diagnosis: Primary osteoarthritis of right hip (Primary osteoarthritis of right hip [M16.11]) Surgeons: Tommy Joyce MD Provider: Esha Seaman DO Anesthesia Type: spinal ASA Status: 3 Anesthesia Type: spinal Vitals Vitals Value Taken Time BP 163/77 01/21/25 10:15 Temp 99 ??F (37.2 ??C) 01/21/25 10:15 Pulse 70 01/21/25 10:19 Resp 16 01/21/25 10:15 SpO2 98 % 01/21/25 10:19 Vitals shown include unfiled device data. Post Anesthesia Care and Evaluation Patient location during evaluation: PACU Patient participation: complete - patient participated Level of consciousness: awake and alert Pain management: adequate Airway patency: patent Anesthetic complications: No anesthetic complications PONV Status: none Cardiovascular status: hemodynamically stable and acceptable Respiratory status: nonlabored ventilation, acceptable and nasal cannula Hydration status: acceptable Comments: 01/21/25 - Eval by anesthesia prior to pacu dc * Anesthesia Procedure Notes - Iam El CRNA - 01/21/2025 8:03 AM EDT Associated Order(s): Spinal Block Spinal Block Patient reassessed immediately prior to procedure Patient location during procedure: OR Indication:at surgeon's request Performed By BIANCA/CAA: Reese Monet CRNA Preanesthetic Checklist Completed: patient identified, IV checked, site marked, risks and benefits discussed, surgical consent, monitors and equipment checked, pre-op evaluation and timeout performed Spinal Block Prep: Patient Position:sitting Staff Respiratory Therapist:cap, gloves, sterile barriers and mask Prep:Chloraprep Patient Monitoring:blood pressure monitoring, continuous pulse oximetry and EKG Spinal Block Procedure Approach:midline Guidance:landmark technique and palpation technique Location:L4-L5 Needle Type:Melonie Needle Gauge:25 G Placement of Spinal needle event:cerebrospinal fluid aspirated Paresthesia: no Fluid Appearance:clear Medications: Mepivacaine HCl (PF) (CARBOCAINE) 1.5 % injection - Injection 4 mL - 01/21/2025 7:32:00 AM Post Assessment Patient Tolerance:patient tolerated the procedure well with no apparent complications Complications no Additional Notes Procedure: Pt assisted to sitting position, with legs in position of comfort over side of bed. Pt. instructed in optimal spine presentation, the spine was prepped/ Draped and the skin at insertion site was anesthetized with 1% Lidocaine 2 ml. The spinal needle was then advanced until CSF flow was obtained and LA was injected: * Anesthesia Preprocedure Evaluation - Esha Seaman DO - 01/20/2025 4:21 PM EDT Anesthesia Evaluation Patient summary reviewed and Nursing notes reviewed no history of anesthetic complications: NPO Solid Status: > 8 hours NPO Liquid Status: > 2 hours Airway Mallampati: II TM distance: >3 FB Neck ROM: full Possible difficult intubation and Small opening Dental - normal exam Pulmonary - normal exam (+) COPD (1.5L qHS),home oxygen, shortness of breath (-) not a smoker ROS comment: 11/28/24-pulm- low to intermed pulm risk of complications Cardiovascular - normal exam Exercise tolerance: good (4-7 METS) ECG reviewed (+) pacemaker (h x sss) pacemaker, hypertension, hyperlipidemia (-) valvular problems/murmurs, dysrhythmias, angina, cardiac stents ROS comment: 06/19-dr bettencourt/cards - device have over 2 years of battery. Pacemaker was programmed at 70 so rate was decreased to save some battery. We discussed blood pressure however she is already on 4 medications and she says her blood pressure are typically 120-130. 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 Questions answered; pt desires to proceed. ) intravenous induction Anesthetic plan, risks, benefits, and alternatives have been provided, discussed and informed consent has been obtained with: patient. Plan discussed with UNIT MANAGER. CODE STATUS: documented in this encounter Plan of Treatment Upcoming Encounters Date Type Department Care Team (Late st Contact Info) Description 05/12/2025 2:30 PM EDT Office Visit [facility] [address] [place] [phone] Tommy Joyce MD [address] [address] documented as of this encounter Goals Goal Patient Goal Type Associated Problems Recent Progress Patient-Stated? Author Autogenera kaushik Goal Care Plan Autogenerated Problem No Tommy Joyce MD documented as of this encounter Procedures Procedure Name Priority Date/Time Associated Diagnosis Comments SPINAL Routine 01/21/2025 8:03 AM EDT documented in this encounter Results * HC BH AN SPINAL TRAY (01/21/2025 8:03 AM EDT) Narrative Iam El CRNA - 01/21/2025 8:03 AM EDT Iam El CRNA 01/21/2025 8:04 AM Spinal Block Patient reassessed immediately prior to procedure Patient location during procedure: OR Indication:at surgeon's request Performed By BIANCA/CAA: Reese Monet CRNA Preanesthetic Checklist Completed: patient identified, IV checked, site marked, risks and benefits discussed, surgical consent, monitors and equipment checked, pre-op evaluation and timeout performed Spinal Block Prep: Patient Position:sitting Staff Respiratory Therapist:cap, gloves, sterile barriers and mask Prep:Chloraprep Patient Monitoring:blood pressure monitoring, continuous pulse oximetry and EKG Spinal Block Procedure Approach:midline Guidance:landmark technique and palpation technique Location:L4-L5 Needle Type:Melonie Needle Gauge:25 G Placement of Spinal needle event:cerebrospinal fluid aspirated Paresthesia: no Fluid Appearance:clear Medications: Mepivacaine HCl (PF) (CARBOCAINE) 1.5 % injection - Injection 4 mL - 01/21/2025 7:32:00 AM Post Assessment Patient Tolerance:patient tolerated the procedure well with no apparent complications Complications no Additional Notes Procedure: Pt assisted to sitting position, with legs in position of comfort over side of bed. Pt. instructed in optimal spine presentation, the spine was prepped/ Draped and the skin at insertion site was anesthetized with 1% Lidocaine 2 ml. The spinal needle was then advanced until CSF flow was obtained and LA was injected: us Esha Seaman DO ANESTHESIA ORDERABLES Edited R esult - Final documented in this encounter Visit Diagnoses Not on filedocumented in this encounter Administered Medications Inactive Administered Medications - up to 3 most recent administrations Medication Order MAR Action Action Date Dose Rate Site ceFAZolin 2000 mg IVPB in 100 mL NS (MBP) 2 g, Intravenous, Administer over 30 Minutes, Once, On Sun01/21/25 at 0557, For 1 dose, Administer within 1 hour of surgical incision. Redose 4 hours from pre-op dose if procedure ongoing or >1.5 L blood loss. Caution: Look alike/sound alike drug alert, Indications: Surgical ProphylaxisIndications:Surgical Prophylaxis New Bag 01/21/2025 7:42 AM EDT 2 g dexAMETHasone (DECADRON) injection Intravenous, As Needed, Starting on Sun01/21/25 at 0741 Given 01/21/2025 7:41 AM EDT 8 mg lactated ringers infusion 9 mL/hr, Intravenous, Continuous, Starting on Jolie 01/22/25 at 0600, For 1 day, May switch to NS IV at KVO if renal / if indicated Restarted 01/21/2025 8:41 AM EDT Currently Infusing 01/21/2025 7:25 AM EDT 9 mL/ hr New Bag 01/21/2025 6:25 AM EDT 9 mL/hr 9 mL/hr lidocaine PF 1% (XYLOCAINE) injection Intravenous, As Needed, Starting on Sun01/21/25 at 0728 Given 01/21/2025 7:28 AM EDT 50 mg Mepivacaine HCl (PF) (CARBOCAINE) 1.5 % injection Injection, One-Time Injection, Starting on Sun01/21/25 at 0745, For 1 dose Given 01/21/2025 7:32 AM EDT 4 mL ondansetron (ZOFRAN) injection Intravenous, As Needed, Starting on Sun01/21/25 at 0851 Given 01/21/2025 8:51 AM EDT 4 mg phenylephrine (BROOKE-SYNEPHRINE) 1000 MCG/10ML injection Intravenous, As Needed, Starting on Sun01/21/25 at 0801 Given 01/21/2025 8:28 AM EDT 200 mcg Given 01/21/2025 8:13 AM EDT 200 mcg Given 01/21/2025 8:07 AM EDT 100 mcg propofol (DIPRIVAN) injection Intravenous, As Needed, Starting on Sun01/21/25 at 0728 Rate/Dose Change 01/21/2025 8:19 AM EDT 35 mcg/kg/min 15.624 mL/hr Rate/Dose Change 01/21/2025 8:07 AM EDT 50 mcg/kg/min 22.3 2 mL/hr Rate/Dose Change 01/21/2025 7:56 AM EDT 75 mcg/kg/min 33.4 8 mL/hr tranexamic acid 1000 mg in 100 mL 0.7% NaCl infusion (premix) 1,000 mg, Intravenous, Administer over 30 Minutes, Once, On Sun01/21/25 at 0557, For 1 dose, Give prior to incision.Indications:Primary osteoarthritis of right hip Bolus 01/21/2025 8:29 AM EDT 1,000 mg New Bag 01/21/2025 7:44 AM EDT 1,000 mg documented in this encounter Additional Health Concerns Active Problems Noted Date Diagnosed Date Autogenerated Problem 02/21/2025 documented as of this encounter Care Teams Solar Energy Consultant And Designer Relationship Specialty Start Date End Date Marcelo Vigil MD [address] [place] [address] PCP - General 11/12/15 documented as of this encounter
--- OUTSIDE RECORDS SUMMARY | 2025-02-10 13:50 | XMS_ITS | Encounter Summary ---
Author Organization [facility] Address [address] [place] [address] Care Team Providers Care Director Critical Care Name Role Phone Marcelo Vigil MD Primary Care Provider [phone] Reason for Visit * Reason Comments Post-op Follow-up 3 weeks S/P Total Hi p Arthroplasty Right (DOS: 01/21/25) Encounter Details Date Type Department Care Team (Late st Contact Info) Description 02/10/2025 1:50 PM EDT Office Visit [facility] [address] [place] [address] Tommy Joyce MD [address] [place] [address] S/P total right hip arthroplasty (Primary Dx) Social History Tobacco Use Types Packs/Day Years [...] or training? Not on file Preferred Language Sinhala 01/08/2025 Comments No Sex and Gender Information Value Date Recorded Sex Assigned at Not on file Legal Sex Female 10:29 AM EDT Gender Identity Not on file Sexual Orientation Not on file documented as of this encounter Last Filed Vital Signs Vital Sign Reading Time Taken Comments Blood Pressure - - Pulse - - Temperature 36.1 C (96.9 F) 02/10/2025 1:35 PM EDT Respiratory Rate - - Oxygen Saturation - - Inhaled Oxygen Concentration - - Weight - - Height - - Body Mass Index - - documented in this encounter Progress Notes * Tommy Joyce MD - 02/10/2025 1:50 PM EDT Orthopaedic Clinic Note: Hip Post Op Chief Complaint Patient presents with Post-op Follow-up 3 weeks S/P Total Hip Arthroplasty Right (DOS: 01/21/25) HPI Ms. Hastings is 3 week(s) s/p right total hip arthroplasty. Patient rates her pain a 2/10 on the pain scale. She is ambulating with assistance of cane. Denies fevers chills or constitutional symptoms. She is continuing with outpatient physical therapy. Overall she is making significant improvements. Denies any complications. Past Medical History: Diagnosis Date Basal cell [...] FUSION SHOULDER ROTATOR CUFF REPAIR Right TONSILLECTOMY TOTAL HIP ARTHROPLASTY Right 01/21/2025 Procedure: TOTAL HIP ARTHROPLASTY RIGHT; Surgeon: Tommy Joyce MD; Location: [facility]; Service: Orthopedics; Laterality: Right; TRIGGER FINGER RELEASE Family History Problem Relation Age of Onset Breast cancer Neg Hx Endometrial cancer Neg Hx Ovarian cancer Neg Hx Social History Socioeconomic History Marital status: Tobacco Use Passive exposure: Past Smokeless tobacco: Never Tobacco comments: Quit 2015 Vaping Use Vaping status: Never Used Substance and Sexual Activity Alcohol use: Not Currently Drug use: Never Sexual activity: Defer Current Outpatient Medications on File Prior to Visit Medication Sig Dispense Refill acetaminophen (TYLENOL) 500 MG tablet Take 2 tablets by mouth Every 8 (Eight) Hours. 42 tablet 0 albuterol (ProAir RespiClick) 108 (90 Base) MCG/ACT inhaler ProAir RespiClick 90 mcg/actuation breath activated amLODIPine-valsartan (EXFORGE) 10-160 MG per tablet Take 1 tablet by mouth Every Night. Ascorbic Acid (Vitamin C) 500 MG capsule Take 1 tablet by mouth Daily. aspirin (ASPIR) 81 MG EC tablet Take 1 tablet by mouth 2 (Two) Times a Day. 60 tablet 0 atorvastatin (LIPITOR) 20 MG tablet Take 1 tablet by mouth Daily. Bacillus Coagulans-Inulin (BENEFIBER PREBIOTIC+PROBIOTIC PO) Take 2 doses by mouth Daily. diphenhydrAMINE (Benadryl Allergy) 25 mg capsule Take 1 capsule by mouth As Needed for Sleep. docusate sodium (Colace) 100 MG capsule Take 1 capsule by mouth 2 (Two) Times a Day. 60 capsule 0 furosemide (LASIX) 20 MG tablet Take 1 tablet by mouth As Needed (swelling in ankles). hydroCHLOROthiazide 25 MG tablet Take 1 tablet by mouth Daily. LORATADINE PO Take 10 mg by mouth Daily. meloxicam (Mobic) 15 MG tablet Take 1 tablet by mouth Daily. 10 tablet 0 multivitamin with minerals (MULTIVITAMIN ADULTS 50+ PO) Take 1 tablet by mouth Daily. omega-3 acid ethyl esters (LOVAZA) 1 g capsule Take 2 capsules by mouth 2 (Two) Times a Day. [place]-3 Fatty Acids (fish oil) 1000 MG capsule capsule Take 2 capsules by mouth 2 (Two) Times a DayWith Meals. oxyCODONE (Roxicodone) 5 MG immediate release tablet Take 1 tablet by mouth Every 4 (Four) Hours AsNeeded for Severe Pain. primidone (MYSOLINE) 50 MG tablet Take 1 [...] 1 (One) Time Per Week. Every Sunday No current facility-administered medications on file prior to visit. No Known Allergies Review of Systems Constitutional: Negative. HENT: Negative. Eyes: Negative. Respiratory: Negative. Cardiovascular: Negative. Gastrointestinal: Negative. Endocrine: Negative. Genitourinary: Negative. Musculoskeletal: Positive for arthralgias. Skin: Negative. Allergic/Immunologic: Negative. Neurological: Negative. Hematological: Negative. Psychiatric/Behavioral: Negative. Physical Exam Temperature 96.9 ??F (36.1 ??C). There is no height or weight on file to calculate BMI. GENERAL APPEARANCE: awake, alert, oriented, in no acute distress and well developed, well nourished LUNGS: breathing nonlabored EXTREMITIES: no clubbing, cyanosis PERIPHERAL PULSES: palpable dorsalis pedis and posterior tibial pulses bilaterally. GAIT: Normal Hip Exam: Right RANGE OF MOTION: EXTENSION/FLEXION: normal (0-110 degrees) IR: 20 ER: 35 PAIN WITH HIP MOTION: no PAIN WITH LOGROLL: no STRENGTH: ABDUCTOR: 5/5 ADDUCTOR: 5/5 HIP FLEXION: 5/5 GREATER TROCHANTER BURSAL PAIN: no SENSATION TO LIGHT TOUCH: DEEP PERONEAL/SUPERFICIAL PERONEAL/SURAL/SAPHENOUS/TIBIAL: intact EDEMA: no ERYTHEMA: no WOUNDS/INCISIONS: yes, well healed surgical incision without evidence of erythema or drainage RADIOGRAPHIC FINDINGS: Indication: Status post right total hip arthroplasty Comparison: Todays xrays were compared to previous xrays from 01/21/2025 AP pelvis: Right: Demonstrate a well positioned total hip without evidence of wear, loosening, fracture or osteolysis, femoral head is concentrically reduced within the acetabulum and No significant changes compared to prior radiographs.;Left: moderate joint space narrowing, there are marginal osteo phytes visualized at the femoral head-neck junction and acetabular margins and No significant changes compared to prior radiographs. Assessment/Plan: Diagnosis Plan 1. S/P total right hip arthroplasty XR Pelvis 1 or 2 View Patient is doing well 3 weeks status post right total hip arthroplasty. I recommend continued gait training and strengthening. Wean from the cane as tolerated. I will see her back in 3 weeks for repeat assessment with x-ray AP pelvis on return. She is welcome to follow-up sooner should problems arise. Tommy Joyce MD 02/10/25 14:06 EDT documented in this encounter Plan of Treatment Upcoming Encounters Date Type Department Care Team (Late st Contact Info) Description 05/12/2025 2:30 PM EDT Office Visit [facility] [address] [place] [id number] Tommy Joyce MD [address] [address] documented as of this encounter Goals Goal Patient Goal Type Associated Problems Recent Progress Patient-Stated? Author Autogenera kaushik Goal Care Plan Autogenerated Problem No Tommy Joyce MD documented as of this encounter Procedures Procedure Name Priority Date/Time Associated Diagnosis Comments XR PELVIS 1 OR 2 VW Routine 02/10/2025 1:34 PM EDT S/P total right hip arthroplasty documented in this encounter Results * XR Pelvis 1 or 2 View (02/10/2025 1:34 PM EDT) Anatomical Region Laterality Modality Body, Pelvis N/A Xray Narrative 02/10/2025 2:06 PM EDT Indication: Status post right total hip arthroplasty Comparison: Todays xrays were compared to previous xrays from 01/21/2025 AP pelvis: Right: Demonstrate a well positioned total hip without evidence of wear, loosening, fracture or osteolysis, femoral head is concentrically reduced within the acetabulum and No significant changes compared to prior radiographs.;Left: moderate joint space narrowing, there are marginal osteophytes visualized at the femoral head-neck junction and acetabular margins and No significant changes compared to prior radiographs. us Tommy Joyce MD [facility] Final Result documented in this encounter Visit Diagnoses Diagnosis S/P total right hip arthroplasty- Primary documented in this encounter Additional Health Concerns Active Problems Noted Date Diagnosed Date Autogenerated Problem 02/21/2025 documented as of this encounter Care Teams Director Critical Care Relationship Specialty Start Date End Date Marcelo Vigil MD [address] [place] [address] PCP - General 11/12/15 documented as of this encounter
--- OUTSIDE RECORDS SUMMARY | 2025-03-05 13:50 | XMS_ITS | Encounter Summary ---
[facility] Organization [facility] Address [address] [place] [address] Care Team Providers Care Near East Archeology Professor Name Role Phone Marcelo Vigil MD Primary Care Provider [phone] Reason for Visit * Reason Comments Post-op 3 week follow up--6 weeks S/P Total Hip Arthroplasty Right (DOS: 01/21/25) Encounter Details Date Type Department Care Team (Late st Contact Info) Description 03/05/2025 1:50 PM EDT Office Visit [facility] [address] [place] [address] Tommy Joyce MD [address] [place] [address] S/P total right hip arthroplasty (Primary Dx) Social History Tobacco Use Types Packs/Day Years Used Date Smoking Tobacco: Never Passive Smoke Exposure: Past Smokeless Tobacco: Never Tobacco Cessation:Counseling Given: No Comments:Quit 2014 Alcohol Use Standard Drinks/Week Comments [...] or training? Not on file Preferred Language Amharic 01/08/2025 Comments No Sex and Gender Information Value Date Recorded Sex Assigned at Not on file Legal Sex Female 10:29 AM EDT Gender Identity Not on file Sexual Orientation Not on file documented as of this encounter Progress Notes * Tommy Joyce MD - 03/05/2025 1:50 PM EDT Orthopaedic Clinic Note: Hip Post Op Chief Complaint Patient presents with Post-op 3 week follow up--6 weeks S/P Total Hip Arthroplasty Right (DOS: 01/21/25) HPI Ms. Hastings is 6 week(s) s/p right total hip arthroplasty. Rates pain 0/10. She is ambulating withno assistive device and is taking nothing for pain control. She denies fevers, chills, or constitutional symptoms. She is continuing outpatient PT. Patient is improving overall. She is happy with heroutcome. I have reviewed the following portions of the patient's history:History of Present Illness Past Medical History: Diagnosis Date Basal cell [...] ARTHROPLASTY RIGHT; Surgeon: Tommy Joyce MD; Location: [facility]; Service: Orthopedics; Laterality: Right; TRIGGER FINGER RELEASE Family History Problem Relation Age of Onset Breast cancer Neg Hx Endometrial cancer Neg Hx Ovarian cancer Neg Hx Social History Socioeconomic History Marital status: Tobacco Use Smoking status: Never Passive exposure: Past Smokeless tobacco: Never Tobacco [...] by mouth 2 (Two) Times a Day. [place]-3 Fatty Acids (fish oil) 1000 MG capsule [...] Negative. Hematological: Negative. Psychiatric/Behavioral: Negative. Physical Exam There were no vitals taken for this visit. There is no height or weight on [...] xrays were compared to previous xrays from 02/10/2025 AP pelvis: Right: Demonstrate a well positioned [...] or 2 View Patient is doing well 6 weeks status post right total hip arthroplasty. I encouraged her to continue working on gait training and strengthening. She may relax on her hip precautions. I will see her back in 2 months for repeat assessment with x-ray AP pelvis on return. She is welcome to follow-up sooner should problems arise. Tommy Joyce MD 03/05/25 14:11 EDT documented in this encounter Plan of Treatment Upcoming Encounters Date Type Department Care Team (Late st Contact Info) Description 05/12/2025 2:30 PM EDT Office Visit [facility] [address] [place] [address] Tommy Joyce MD [address] [address] documented as of this encounter Goals Goal Patient Goal Type Associated Problems Recent Progress Patient-Stated? Author Autogenera kaushik Goal Care Plan Autogenerated Problem No Tommy Joyce MD documented as of this encounter Procedures Procedure Name Priority Date/Time Associated Diagnosis Comments XR PELVIS 1 OR 2 VW Routine 03/05/2025 1:38 PM EDT S/P total right hip arthroplasty documented in this encounter Results * XR Pelvis 1 or 2 View (03/05/2025 1:38 PM EDT) Anatomical Region Laterality Modality Body, Pelvis N/A Xray Narrative 03/05/2025 2:12 PM EDT Indication: Status post right total hip arthroplasty Comparison: Todays xrays were compared to previous xrays from 02/10/2025 AP pelvis: Right: Demonstrate a well positioned total hip without evidence of wear, loosening, fracture or osteolysis, femoral head is concentrically reduced within the acetabulum and No significant changes compared to prior radiographs.;Left: moderate joint space narrowing, there are marginal osteophytes visualized at the femoral head-neck junction and acetabular margins and No significant changes compared to prior radiographs. us Tommy Joyce MD [facility] Final Result documented in this encounter Visit Diagnoses Diagnosis S/P total right hip arthroplasty- Primary documented in this encounter Additional Health Concerns Active Problems Noted Date Diagnosed Date Autogenerated Problem 02/21/2025 documented as of this encounter Care Teams Near East Archeology Professor Relationship Specialty Start Date End Date Marcelo Vigil MD [address] [place] [address] PCP - General 11/12/15 documented as of this encounter
--- OUTSIDE RECORDS SUMMARY | 2025-03-16 10:02 | XMS_ITS | Referral Summary ---
Author Organization [facility] ([place], [place], [place], [place]) Address [address] [place] [address] Care Team Providers Care Ssas Developer Name Role Phone No, Pcp [facility] Primary Care Provider Juliana Cerda MD Unavailable [phone] Aliyah Cohen MD Unavailable [phone] Encounters Date Type Department Care Team Description 12/15/2024 6:00 AM EDT Clinical Support [facility] Electrophysiology [address] [place] [address] Malcolm Schafer MD Encounter for adjustment or management of cardiac device (Primary Dx); Presence of cardiac pacemaker; Sick sinus syndrome (HCC) from Last 3 Months Allergies No known active allergies Medications albuterol HFA (VENTOLIN HFA) 90 mcg/actuation inhaler Inhale 2 puffs by mouth as needed. Active amlodipine-vals tammy (EXFORGE) 10-160 mg per tablet Take 1 tablet by mouth every evening before dinner. Active umeclidinium-vi lanteroL (Anoro Ellipta) 62.5-25 mcg/actuation DsDv Inhale 1 puff by mouth via inhaler daily. Active atorvastatin (LIPITOR) 20 MG tablet Take 0.5 tablets (10 mg total) by mouth every evening before dinner. Active diphenhydrAMINE (BenadryL) 25 mg capsule Take 1 tablet by mouth as needed. Active wheat dextrin/calcium /aspartam (BENEFIBER + CALCIUM SUGAR-FREE ORAL) Take 2 teaspoonful by mouth daily. Active hydroCHLOROthia zide (HYDRODIURIL) 25 MG tablet Take 1 tablet (25 mg total) by mouth daily. Active omega-3 acid ethyl esters (LOVAZA ORAL) Take 3,600 mg by mouth Daily (1800) Stopped taking on 06/20/2022. Active primidone (MYSOLINE) 50 MG tablet Take 2 tablets (100 mg total) by mouth in the morning. Active propranoloL (INDERAL) 80 MG tablet Take 1 tablet (80 mg total) by mouth daily. 2 Active ascorbic acid, vitamin C, (ascorbic acid with clifford hips) 500 MG tablet Take 1 tablet (500 mg total) by mouth every evening before dinner. Active ergocalciferol (Vitamin D2) 1,250 mcg (50,000 unit) capsule Take 1 capsule (50,000 Units total) by mouth once a week. Active primidone (MYSOLINE) 50 MG tabletIndicatio ns:essential tremor Take 1 tablet (50 mg total) by mouth nightly. Active acetaminophen (TYLENOL) 500 MG tablet Take 1 tablet (500 mg total) by mouth nightly. Active meclizine (ANTIVERT) 25 MG tablet Take 1 tablet (25 mg total) by mouth 3 (three) times daily as needed. Active furosemide (LASIX) 20 MG tablet 4 Active Active Problems Problem Noted Date Diagnosed Date Encounter for adjustment or management of cardia c device 10/02/2024 COPD (chronic obstructive pulmonary disease) High blood pressure 06/22/2022 Arteriosclerosis of coronary artery 07/08/2021 Presence of cardiac pacemaker 07/08/2021 Sick sinus syndrome 05/28/2020 Hyperlipidemia 11/30/2015 Resolved Problems Problem Noted Date Diagnosed Date Resolved Date Lumbar spondylosis 06/28/2022 4 Back pain 06/22/2022 01/15/2024 Syncope 06/22/2022 01/15/2024 Social History Tobacco Use Types Packs/Day Years Used Date Smoking Tobacco: Former Cigarettes 2 55 1 960 - 2015 Smokeless Tobacco: Never Tobacco Cessation:Counseling Given: Not Answered Alcohol Use Standard Drinks/Week Comments Not Currently 0 (1 standard drink = 0.6 oz pur e alcohol) Family and Community Support Answer Tee e Recorded Help with Day to Day Activities Not on file 09/04/2023 Feeling Lonely or Isolated Not on file 09/04 Educational Attainment Answer Date Mando rded Speak language other than Hebrew at home Not on file 09/04/2023 Want [...] on file Sexual Orientation Not on file Last Filed Vital Signs Vital Sign Reading Time Taken Comments Blood Pressure 138/80 11/07/2024 11:06 AM EDT Pulse 69 11/07/2024 11:06 AM EDT Temperature 37.1 C (98.8 F) 06/30/2022 10:46 AM EDT Respiratory Rate 17 06/30/2022 10:46 AM EDT Oxygen Saturation 93% 11/07/2024 11:06 AM EDT Inhaled Oxygen Concentration - - Weight 73.9 kg (163 lb) 11/07/2024 11:06 AM EDT Height 160 cm (5' 3 ) 11/07/2024 11:06 AM EDT Body Mass Index 28.87 11/07/2024 11:06 AM EDT Plan of Treatment Upcoming Encounters Date Type Department Care Team (Late st Contact Info) Description 06/18/2025 1:00 PM EDT Office Visit [facility] Electrophysiology [address] [place], [place] [id number] Malcolm Schafer MD [address] [place] [address] [address] [place] [address] Medical Devices Implanted Type Area Assistant Center Director Device Identifier Shelf Expiration Date Model / Serial / Lot Bone Fibers 5.0cc Pliafx Crtcl - [id number] Implanted:Qty: 1 on 06/28/2022 by Yuko Mendoza MD at [facility] IMPLANTS N/A: Back LIFENET:LIFENET TRANSPLANT SRV 11/08/2026 Matrix Fibergraft 12.5cc [id number] - [id number] Implanted:Qty: 1 on 06/28/2022 by Yuko Mendoza MD at [facility] IMPLANTS N/A: Back J &J:DEPUY:DEPUY SPINE 06/01/2024 [id number] / / [id number] Bone Vivigen Frmble Cell 10cc -[id number] - [id number] Implanted:Qty: 1 on 06/28/2022 by Yuko Mendoza MD at [facility] IMPLANTS N/A: Back LIFENET:LIFENET TRANSPLANT SRV 06/09/2023 [id number] / / [id number] Imp Vpr Prm Cfxfen Xtab 6x45mm [id number] - [id number] Implanted:Qty: 4 on 06/28/2022 by Yuko Mendoza MD at [facility] IMPLANTS N/A: Back J &J:DEPUY:DEPUY SPINE [id number] / [id number] / Mis Regi Ply Scrw Set Ti - [id number] Implanted:Qty: 4 on 06/28/2022 by Yuko Mendoza MD at [facility] IMPLANTS N/A: Back J &J:DEPUY:DEPUY SPINE / / Daniel Spine Viper [id number] -035 - [id number] Implanted:Qty: 2 on 06/28/2022 by Yuko Mendoza MD at [facility] IMPLANTS N/A: Back J &J:DEPUY:DEPUY SPINE 186-035 / -035 / Pacemakers-06/01/2016 Implanted:01/2016 (Quantity not on file) Pacemakers [employer] [id number] / [id number] / Insurance MEDICARE PART A B CROSS/BLUE SHIELD Advance Directives For more information, please contact: [phone] Documents on File Type Date Recorded Patient Merchandise Stocker Expl anation Advance Directives and Living Will 09/21/2023 Care Teams Ssas Developer Relationship Specialty Start Date End Date No, Pcp [facility] [place] PCP - General 06/22/22 Juliana Rojo MD [address] [place] [address] [place] [phone] Manager Intern Interventional Cardiology 05/28/24 [place] [address] [place] [address] [address] Manager Intern Electrophysiology 05/28/24
--- OUTSIDE RECORDS SUMMARY | 2025-03-16 10:02 | XMS_ITS | Clinical Summary ---
Author Organization [employer] ([place], [place], [place], [place]) Address [address] [place] [address] Care Team Providers Care Dope Maintenance Worker Name Role Phone No, Pcp [facility] Primary Care Provider Juliana Cerda MD Unavailable [phone] Aliyah Cohen MD Unavailable [phone] Allergies No known active allergies Medications albuterol [...] Back pain 06/22/2022 01/15/2024 Syncope 06/22/2022 01/15/2024 Encounters Date Type Department Care Team Description 12/15/2024 6:00 AM EDT Clinical Support [facility] Electrophysiology [address] [place] [phone] Malcolm Schafer MD Encounter for adjustment or management of cardiac device (Primary Dx); Presence of cardiac pacemaker; Sick sinus syndrome (HCC) from Last 3 Months Social History Tobacco Use Types Packs/Day Years Used Date Smoking Tobacco: Former Cigarettes 2 55 1 0 - 2014 Smokeless Tobacco: Never Tobacco Cessation:Counseling Given: Not Answered Alcohol Use Standard Drinks/Week Comments Not Currently 0 (1 standard drink = 0.6 oz pur e alcohol) Family and Community Support Answer Tee e Recorded Help with Day to Day Activities Not on file 09/04/2023 Feeling Lonely or Isolated Not on file 09/04 Educational Attainment Answer Date Mando rded Speak language other than Estonian at home Not on file 09/04/2023 Want [...] Description 06/18/2025 1:00 PM EDT Office Visit [facility] Electrophysiology [address] [place], [place] [phone] Malcolm Schafer MD [address] [place] [address] [address] [place] [address] Health Maintenance Due Date Last Done Comments Medicare Initial AWV G0438 DXA SCAN 1941 Depression Screening (12+) 1953 DTAP/TDAP/TD VACCINES (1 - Tdap) 1960 Respiratory Syncytial Virus (RSV) Adult or (1 - 1-dose 75+ series) 2016 Shingles Vaccine (Zoster) (2 of 2) 12/23/20192019 Pneumococcal 50+ years (2 of 2 - PCV) 06/15/2021 06/15/2020 COVID-19 VACCINE (5 - 2023-2 5 season) 2024 05/26/2022, 06/29/2021, 11/03/2020, Additional history exists Falls Risk Screening 08/27/2024 Influenza Vaccine (#1) 2025 Tobacco Cessation Counseling and Screening (12+) 11/07/2025 11/07/2024 Medical Devices Implanted Type Area Case Loader Operator Device Identifier Shelf Expiration Date Model / Serial / Lot Bone Fibers 5.0cc Pliafx Crtcl Bl-1799-12 - [id number] Implanted:Qty: 1 on 06/28/2022 by Yuko Mendoza MD at [facility] IMPLANTS N/A: Back LIFENET:LIFENET TRANSPLANT SRV 11/08/2026 -1799-12 / / [id number] Matrix Fibergraft 12.5cc 2074-5626 - [id number] Implanted:Qty: 1 on 06/28/2022 by Yuko Mendoza MD at [facility] IMPLANTS N/A: Back J &J:DEPUY:DEPUY SPINE 06/01/2024 [id number] / / [id number] Bone Vivigen Frmble Cell 10cc -1599-003 - [id number] Implanted:Qty: 1 on 06/28/2022 by Yuko Mendoza MD at [facility] IMPLANTS N/A: Back LIFENET:LIFENET TRANSPLANT SRV 06/09/2023 -1599- / / [id number] Imp Vpr Prm Cfxfen Xtab 6x45mm [id number] - [id number] Implanted:Qty: 4 on 06/28/2022 by Yuko Mendoza MD at [facility] IMPLANTS N/A: Back J &J:DEPUY:DEPUY SPINE [id number] / [id number] / Mis Regi Ply Scrw Set Ti 1867-15-000 - [id number] Implanted:Qty: 4 on 06/28/2022 by Yuko Mendoza MD at [facility] IMPLANTS N/A: Back J &J:DEPUY:DEPUY SPINE 15-000 / 000 / Daniel Spine Viper [id number] 1866--035 - [id number] Implanted:Qty: 2 on 06/28/2022 by Yuko Mendoza MD at [facility] IMPLANTS N/A: Back J &J:DEPUY:DEPUY SPINE -035 / -035 / Pacemakers-06/01/2016 Implanted:01/2016 (Quantity not on file) Pacemakers [employer] 2240 / [id number] / Insurance [place]IC[place] [address] [place] [address]/[facility] Advance Directives For more information, please contact: [phone] Documents on File Type Date Recorded Patient Paper Latcher Expl anation Advance Directives and Living Will 09/21/2023 Care Teams Dope Maintenance Worker Relationship Specialty Start Date End Date No, Pcp [facility] [place] PCP - General 06/22/22 [place] [address] [place] [address] [address] [facility] Interventional Cardiology 05/28/24 Aliyah Cohen MD [address] [facility] [address] [address] [facility] Electrophysiology 05/28/24
--- OUTSIDE RECORDS SUMMARY | 2025-03-16 10:03 | XMS_ITS | Encounter Summary ---
Author Organization [facility] Address [address] [place] [address] Care Team Providers Care Car Hopper Name Role Phone Marcelo Vigil MD Primary Care Provider [phone] Reason for Visit * Reason Onset Date Comments RIGOBERTO- CALL BACK RQ 01/27/2025 Encounter Details Date Type Department Care Team (Late st Contact Info) Description 01/27/2025 Telephone [facility] ORTHOPEDICS & SPORTS MEDICINE [address] [place] [address] Tommy Joyce MD [address] [place] [address] RIGOBERTO- CALL BACK RQ Social History Tobacco Use Types Packs/Day Years [...] or training? Not on file Preferred Language Uzbek 01/08/2025 Comments No Sex and Gender Information Value Date Recorded Sex Assigned at Not on file Legal Sex Female 10:29 AM EDT Gender Identity Not on file Sexual Orientation Not on file documented as of this encounter Miscellaneous Notes * Telephone Encounter - Amber Nina - 01/29/2025 3:46 PM EDT Called pt back; Patient wanting to know how long her hip precautions (sleeping on her back/avoidingside sleeping) need be to be followed. I informed her that hip precautions must be followed for 6 weeks after surgery. Pt verbalized understanding and will call back with any further questions or concerns. Amber Deng CMA ([facility]), ROT * Telephone Encounter - Kourtney Jenkins PCT - 01/29/2025 1:01 PM EDT Caller: TESS Relationship to Patient: SELF Phone Number: [phone] Reason for Call: PATIENT STATES SHE HAS SOME MORE QUESTIONS AND WOULD LIKE A CALL BACK * Telephone Encounter - Amber Nina - 01/27/2025 1:51 PM EDT Call was transferred from surgery scheduling. Spoke to pt; She was calling to inquire about her post-op bandage/wound care instructions. I explained that she could remove her post-op bandage at post-op day 7 which would be tomorrow; Explained that once she removes the bandage, she should assess forany drainage; If none present, leave incision open to the air. Can shower at post-op day 10 if no drainage between day 7-10. She verbalized understanding. Otherwise, checked to see how pt was doing 6 days s/p ROGER. She reports swelling in inner part of thigh down into the ankle. Has been elevating and has been using a sleeve from PT. Does note some improvement in the swelling; She is doing exercises at home and working with PT. Reports no longer taking the oxycodone due to side effects (mental status change). Has been taking Extra Strength Tylenol and 81mg ASA BID for DVT prevention. No further action needed at this time but will call back if anything changes. Amber Deng CMA ([facility]), ROT * Telephone Encounter - Zayda Ojeda RegSched Rep - 01/27/2025 1:49 PM EDT Patient has questions about changing bandage and asked to speak to someone to discuss. Transferred to surg pin cleaner line to leave message for return call documented in this encounter Plan of Treatment Upcoming Encounters Date Type Department Care Team (Late st Contact Info) Description 05/12/2025 2:30 PM EDT Office Visit [facility] ORTHOPEDICS & SPORTS MEDICINE [address] [place] [address] Tommy Joyce MD [address] [address] documented as of this encounter Goals Goal Patient Goal Type Associated Problems Recent Progress Patient-Stated? 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
--- OUTSIDE RECORDS SUMMARY | 2025-03-16 10:03 | XMS_ITS | Encounter Summary ---
Author Organization [facility] Address [address] [place] [address] Care Team Providers Care Editorial Specialist Name Role Phone Marcelo Vigil MD Primary Care Provider Encounter Details Date Type Department Care Team (Latest Contact Info) Description 01/21/2025 Travel Social History Tobacco Use Types Packs/Day Years [...] or training? Not on file Preferred Language Chinese 01/08/2025 Comments No Sex and Gender Information [...] 6:22 AM EDT Mikayla Stoddard RN * Wallace Suicide Severity Rating Scale (Screener/Recent Self-Report) Question Answer Date of Assessment Author 6. Suicidal Behavior (Lifetime) No 6:22 AM EDT Mikayla Stoddard RN documented as of this encounter Plan of Treatment Upcoming Encounters Date Type Department Care Team (Late st Contact Info) Description 05/12/2025 2:30 PM EDT Office Visit [facility] ORTHOPEDICS & SPORTS MEDICINE [address] [place] [address] Tommy Joyce MD [address] [place] [phone] documented as of this encounter Goals Goal Patient Goal Type Associated Problems Recent Progress Patient-Stated? 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
--- OUTSIDE RECORDS SUMMARY | 2025-03-16 10:03 | XMS_ITS | Encounter Summary ---
Author Organization [facility] Address [address] [place] [address] Care Team Providers Care Floor Surfacer Name Role Phone Marcelo Vigil MD Primary Care Provider [phone] Encounter Details Date Type Department Care Team (Latest Contact Info) Description 03/05/2025 Travel Social History Tobacco Use Types Packs/Day [...] or training? Not on file Preferred Language Saudi Arabian 01/08/2025 Comments No Sex and Gender Information Value Date Recorded Sex Assigned at Not on file Legal Sex Female 10:29 AM EDT Gender Identity Not on file Sexual Orientation Not on file documented as of this encounter Plan of Treatment Upcoming Encounters Date Type Department Care Team (Late st Contact Info) Description 05/12/2025 2:30 PM EDT Office Visit [facility] ORTHOPEDICS & SPORTS MEDICINE [address] [place] [phone] Tommy Joyce MD [address] [address] documented as of this encounter Goals Goal Patient Goal Type Associated Problems Recent Progress Patient-Stated? 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
--- OUTSIDE RECORDS SUMMARY | 2025-03-16 10:03 | XMS_ITS | Clinical Summary ---
Author Organization [facility] Address [address] [place] [address] Care Team Providers Care Paper Cone Maker Name Role Phone Marcelo Vigil MD Primary Care Provider [phone] Allergies No known active allergies Medications Umeclidinium-Salma anterol (Anoro Ellipta) 62.5-25 MCG/ACT aerosol powder inhaler Inhale 1 puff Daily. Active albuterol (ProAir RespiClick) 108 (90 Base) MCG/ACT inhaler ProAir RespiClick 90 mcg/actuation breath activated Active amLODIPine-valsa rtan (EXFORGE) 10-160 MG per tablet Take 1 tablet by mouth Every Night. Active primidone (MYSOLINE) 50 MG tablet Take 1 tablet by mouth Every Morning. Active propranolol LA (INDERAL LA) 80 MG 24 hr capsule Take 1 capsule by mouth Daily. 4 Active Engadine-3 Fatty Acids (fish oil) 1000 MG capsule capsule Take 2 capsules by mouth 2 (Two) Times a Day With Meals. Active Bacillus Coagulans-Inulin (BENEFIBER PREBIOTIC+PROBIO TIC PO) Take 2 doses by mouth Daily. Active diphenhydrAMINE (Benadryl Allergy) 25 mg capsule Take 1 capsule by mouth As Needed for Sleep. Active furosemide (LASIX) 20 MG tablet Take 1 tablet by mouth As Needed (swelling in ankles). 4 Active hydroCHLOROthiaz ny 25 MG tablet Take 1 tablet by mouth Daily. Active multivitamin with minerals (MULTIVITAMIN ADULTS 50+ PO) Take 1 tablet by mouth Daily. Active atorvastatin (LIPITOR) 20 MG tablet Take 1 tablet by mouth Daily. Active Ascorbic Acid (Vitamin C) 500 MG capsule Take 1 tablet by mouth Daily. Active LORATADINE PO Take 10 mg by mouth Daily. Active VITAMIN D PO Take 50,000 Units by mouth 1 (One) Time Per Week. Every Sunday Active vitamin B-12 (CYANOCOBALAMIN) 1000 MCG tablet Take 1 tablet by mouth 1 (One) Time Per Week. Tuesdays Active docusate sodium (Colace) 100 MG capsule Take 1 capsule by mouth 2 (Two) Times a Day. 60 capsule Active acetaminophen (TYLENOL) 500 MG tablet Take 2 tablets by mouth Every 8 (Eight) Hours. 42 tablet Active meloxicam (Mobic) 15 MG tablet Take 1 tablet by mouth Daily. 10 tablet 01/21/2025 1:19 PM EDT Active aspirin (ASPIR) 81 MG EC tablet Take 1 tablet by mouth 2 (Two) Times a Day. 60 tablet Active primidone (MYSOLINE) 50 MG tablet Take 3 tablets by mouth Every Night. Active oxyCODONE (Roxicodone) 5 MG immediate release tabletIndication s:Status post total replacement of right hip Take 1 tablet by mouth Every 4 (Four) Hours As Needed for Severe Pain. Active omega-3 acid ethyl esters (LOVAZA) 1 g capsule Take 2 capsules by mouth 2 (Two) Times a Day. 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 Essential tremor 11/30/2015 Hyperlipidemia 11/30/2015 Resolved Problems Problem Noted Date Diagnosed Date Resolved Date Hip arthritis 11/27/2024 01/21/2025 Primary osteoarthritis of right hip 11/27/2024 01/21/2025 Encounters Date Type Department Care Team Description 03/16/2025 Telephone [facility] [address] [facility] [address] [place] [address] Tommy Joyce MD 03/05/2025 1:50 PM EDT Office Visit [facility] [address] [facility] [address] [place] [address] Tommy Joyce MD S/P total right hip arthroplasty (Primary Dx) 03/05/2025 Travel 02/10/2025 1:50 PM EDT Office Visit [facility] [address] [facility] [address] [place] [address] Tommy Joyce MD S/P total right hip arthroplasty (Primary Dx) 02/10/2025 Travel 01/29/2025 Telephone [facility] [address] [address] Tommy Joyce MD CLINICAL MESSAGE 01/27/2025 Telephone [facility] [address] [address] Tommy Joyce MD [place]- CALL BACK RQ 01/21/2025 7:25 AM EDT Anesthesia Event [facility] OR [address] [place] [address] Esha Seaman DO 01/21/2025 7:15 AM EDT - 01/21/2025 9:43 AM EDT Surgery [facility] OR [address] [place] [address] Tommy Joyce MD TOTAL HIP ARTHROPLASTY RIGHT [52106 (CPT )] 01/21/2025 5:43 AM EDT - 01/21/2025 5:30 PM EDT Hospital Encounter [facility] 3G [address] [place] [address] Tommy Joyce MD Green, Ashley E, DO S/P total right hip arthroplasty (Primary Dx); Primary osteoarthritis of right hip; Status post total replacement of right hip Discharge Disposition: Home or Self Care 01/21/2025 Travel 01/14/2025 Pre-Procedure Screening [facility] [address] [facility] [address] [place] [address] Amber Nina 01/08/2025 1:30 PM EDT Pre-Admission Testing [facility] PREADMISSION T [address] [place] [id number] Primary osteoarthritis of right hip 01/08/2025 Travel from Last 3 Months Family History Medical History Relation Name Comments Breast cancer Neg Hx Endometrial cancer Neg Hx Ovarian cancer Neg Hx Social History Tobacco Use Types Packs/Day Years [...] or training? Not on file Preferred Language Sierra Leonean 01/08/2025 Comments No Sex and Gender Information Value Date Recorded Sex Assigned at Not on file Legal Sex Female 10:29 AM EDT Gender Identity Not on file Sexual Orientation Not on file Last Filed Vital Signs Vital Sign Reading Time Taken Comments Blood Pressure 145/63 01/21/2025 2:26 PM EDT Pulse 82 01/21/2025 2:26 PM EDT Temperature 36.1 C (96.9 F) 02/10/2025 1:35 PM EDT Respiratory Rate 18 01/21/2025 2:26 PM EDT Oxygen Saturation 93% 01/21/2025 2:26 PM EDT Inhaled Oxygen Concentration - - Weight 74.4 kg (164 lb) 01/21/2025 6:11 AM EDT Height 160 cm (5' 3 ) 01/21/2025 6:11 AM EDT Body Mass Index 29.05 01/21/2025 6:11 AM EDT Plan of Treatment Upcoming Encounters Date Type Department Care Team (Late st Contact Info) Description 05/12/2025 2:30 PM EDT Office Visit [facility] [address] [place] [address] Tommy Joyce MD [address] [place] [address] Health Maintenance Due Date Last Done Comments DXA SCAN 1941 LIPID PANEL 1940 Pneumococcal Vaccine 50+ (1 of 2 - PCV) 1960 12/12/2016 TDAP/TD VACCINES (1 - Tdap) 1960 RSV Vaccine - Adults (1 - 1- dose 75+ series) 2016 ZOSTER VACCINE (2 of 2) 12/23/2019 10/28/2019 ANNUAL WELLNESS VISIT 01/29/2020 COVID-19 Vaccine (6 - 2023-2 5 season) 2024 06/27/2023, 05/26/2022, 06/29/2021, Additional history exists INFLUENZA VACCINE 05/27/2025 Goals Goal Patient Goal Type Associated Problems Recent Progress Patient-Stated? Author Autogenera kaushik Goal Care Plan Autogenerated Problem No Tommy Joyce MD Medical Devices Implanted Type Area Wastewater Operator Device Identifier Shelf Expiration Date Model / Serial / Lot Cp Norton Hip Soma Tritanium W/Bilox X3 - [id number] Implanted:Qty: 1 on 01/21/2025 by Tommy Joyce MD at [facility] Implant Right: Hip ANTIONETTE VIVEK CAPSTRYKER HIPSOMATRI [id number] / / [id number] Wnd/Cls Stratafix Abs Spiralpdspls Ctx/48mm Sz1 14in Salma - [id number] Implanted:Qty: 1 on 01/21/2025 by Tommy Joyce MD at [facility] Implant Right: Hip ETHICON DIV OF Sascha AND J [id number] 06/26/2026 [id number] / / [id number] Dev Contrl Tiss Stratafix Spiral Pdo Bidir Mo4 41b30gl - [id number] Implanted:Qty: 1 on 01/21/2025 by Tommy Joyce MD at [facility] Implant Right: Hip [employer] ENDO SURGERY DIV OF Sascha AND J [id number] 02/23/2026 [id number] / / [id number] Shll Trident2 Tritanium C/Hl 50mm - [id number] Implanted:Qty: 1 on 01/21/2025 by Tommy Joyce MD at [facility] Implant Right: Hip ANTIONETTE VIVEK [id number] 10/05/2029 [id number] / / [id number] Scrw Hex Lp Trident2 6.5x30mm - [id number] Implanted:Qty: 1 on 01/21/2025 by Tommy Joyce MD at [facility] Implant Right: Hip ANTIONETTE VIVEK [id number] 11/12/2029 [id number] / / [id number] Scrw Hex Lp Trident2 6.5x35mm - [id number] Implanted:Qty: 1 on 01/21/2025 by Tommy Joyce MD at [facility] Implant Right: Hip ANTIONETTE VIVEK [id number] 11/11/2029 [id number] / / [id number] Insrt Hip Trident X3 0deg 36mm Szd Strl - [id number] Implanted:Qty: 1 on 01/21/2025 by Tommy Joyce MD at [facility] Implant Right: Hip ANTIONETTE VIVEK [id number] 10/01/2029 [id number] / / [id number] Stem Fem Accolade2 V40 127d [id number] Sz5 - [id number] Implanted:Qty: 1 on 01/21/2025 by Tommy Joyce MD at [facility] Implant Right: Hip ANTIONETTE VIVEK [id number] 08/12/2029 [id number] / / [id number] Hd Fem/Hip Biolox/Delta V40 Ceram 36mm Pls5 - [id number] Implanted:Qty: 1 on 01/21/2025 by Tommy Joyce MD at [facility] Implant Right: Hip ANTIONETTE VIVEK [id number] 09/02/2029 [id number] / / [id number] Pacemaker Pacemaker Description:Interrogated on 11/07/24 Procedures Procedure Name Priority Date/Time Associated Diagnosis Comments XR PELVIS 1 OR 2 VW Routine 03/05/2025 1 :38 PM EDT S/P total right hip arthroplasty XR PELVIS 1 OR 2 VW Routine 02/10/2025 1 :34 PM EDT S/P total right hip arthroplasty XR PELVIS 1 OR 2 VW STAT 01/21/2025 9 :41 AM EDT XR PELVIS 1 OR 2 VW Routine 01/21/2025 8 :42 AM EDT SPINAL Routine 01/21/2025 8:03 AM EDT [place] ARTHRP ACETBLR/PROX FEM PROSTC AGRFT/ALGRFT 01/21/2025 7:09 AM EDT Primary osteoarthritis of right hip Special Needs SPINAL, LOCAL COCKTAIL, LATERAL, TRITANIUM CLUSTER, ACCOLADE II POTASSIUM STAT 01/21/2025 6:24 AM EDT POCT GLUCOSE FINGERSTICK Routine 01/21/2025 6:19 AM EDT SCANNED - TELEMETRY 01/21/2025 ECG 12-LEAD Routine 01/08/2025 2:42 PM EDT [...] PM EDT Primary osteoarthritis of right hip from Last 3 Months Results * XR Pelvis 1 or 2 View (03/05/2025 1:38 PM EDT) Only the most recent of4 resultswithin the time period is included. Anatomical Region Laterality Modality Body, Pelvis N/A [...] to prior radiographs. us Tommy Joyce MD [facility] [place] Final Result * HC BH AN SPINAL TRAY (01/21/2025 [...] timeout performed Spinal Block Prep: Patient Position:sitting Responder:cap, gloves, sterile barriers and mask Prep:Chloraprep Patient [...] ANESTHESIA ORDERABLES Edited R esult - Final * Potassium (01/21/2025 6:24 AM EDT) Potassium 3.7 3.5 - 5.2 mmol/L 01/21/2025 6:47 AM EDT [facility] Comment:Slight hemolysis det ected by analyzer. Result may be falsely elevated. Blood Line / Unknown 01/21/2025 6: 24 AM EDT 01/21/2025 6:24 AM EDT us Esha Seaman DO LAB BLOOD ORDERABLES Final Res ult [facility]
[address] [place] [address], * POC Glucose Once (01/21/2025 6:19 AM EDT) Glucose 103 70 - 130 mg/dL 01/21/2025 6:31 AM EDT [facility] Blood 01/21/2025 6:19 AM EDT 01/21/2025 6:31 AM EDT Tommy Joyce MD POINT OF CARE TEST ORDERABL ES Final Result [facility]
[address] [place] [address], * Telemetry Scan (01/21/2025) [facility] Onbase ECG ORDERABLES Final Result * ECG 12 Lead (01/08/2025 2:42 PM [...] ECG No previous ECGs available Confirmed by SALBADOR COLIN MD ([id number]) on 01/08/2025 4:38:55 PM Referred By: Confirmed By: SALBADOR COLIN MD Procedure Note Salbador Colin MD - 01/08/2025 Test Reason : pre-op [...] ECG No previous ECGs available Confirmed by SALBADOR COLIN MD (19) on 01/08/2025 4:38:55 PM Referred By: Confirmed By: SALBADOR COLIN MD Tommy Joyce MD ECG ORDERABLES Final Resul t ECG * Nicotine & Metabolite, Quant (01/08/2025 2:11 PM EDT) Nicotine <1.0 ng/mL 01/20/2025 2:10 PM EDT [facility] Comment: This test was developed and its performance characteristics determined by [employer]. It has not been cleared or approved by the Food and Drug Administration. Nicotine levels greater than 2.0 are consistent with the use of tobacco or tobacco cessation products. Cotinine <1.0 ng/mL 01/20/2025 2:10 PM EDT [facility] Comment: This test was developed and its performance characteristics determined by [employer]. It has not been cleared or approved by the Food and Drug Administration. Cotinine levels greater than 20.0 are consistent with the use of tobacco or tobacco cessation products. Blood Venipuncture / Unknown 01/08/2025 2:11 PM EDT 01/08/2025 2:36 PM EDT Narrative [facility] - 01/20/2025 2:10 PM EDT Performed at: [address] [place] [id number] Property Management Accountant: Mary Dc MD, Phone: [phone] Tommy Joyce MD LAB BLOOD ORDERABLES Final Result [facility] [address] [place] [address], * CBC Auto Differential (01/08/2025 2:11 PM EDT) WBC 6.35 3.40 - 10.80 10*3/mm3 01/08/2025 2:45 PM EDT [facility] RBC 4.20 3.77 - 5.28 10*6/mm3 01/08/2025 2:45 PM EDT [facility] Hemoglobin 13.2 12.0 - 15.9 g/dL 01/08/2025 2:45 PM EDT [facility] Hematocrit 39.7 34.0 - 46.6 % 01/08/2025 2:45 PM EDT [facility] MCV 94.5 79.0 - 97.0 fL 01/08/2025 2:45 PM EDT [facility] MCH 31.4 26.6 - 33.0 pg 01/08/2025 2:45 PM EDT [facility] MCHC 33.2 31.5 - 35.7 g/dL 01/08/2025 2:45 PM EDT [facility] RDW 12.8 12.3 - 15.4 % 01/08/2025 2:45 PM EDT [facility] RDW-SD 44.2 37.0 - 54.0 fl 01/08/2025 2:45 PM EDT [facility] MPV 8.4 6.0 - 12.0 fL 01/08/2025 2:45 PM EDT [facility] Platelets 237 140 - 450 10*3/mm3 01/08/2025 2:45 PM EDT [facility] Neutrophil % 62.0 42.7 - 76.0 % 01/08/2025 2:45 PM EDT [facility] Lymphocyte % 23.3 19.6 - 45.3 % 01/08/2025 2:45 PM EDT [facility] Monocyte % 9.8 5.0 - 12.0 % 01/08/2025 2:45 PM EDT [facility] Eosinophil % 3.5 0.3 - 6.2 % 01/08/2025 2:45 PM EDT [facility] Basophil % 0.9 0.0 - 1.5 % 01/08/2025 2:45 PM EDT [facility] Immature Grans % 0.5 0.0 - 0.5 % 01/08/2025 2:45 PM EDT [facility] Neutrophils, Absolute 3.94 1.70 - 7.00 10*3/mm3 01/08/2025 2:45 PM EDT [facility] Lymphocytes, Absolute 1.48 0.70 - 3.10 10*3/mm3 01/08/2025 2:45 PM EDT [facility] Monocytes, Absolute 0.62 0.10 - 0.90 10*3/mm3 01/08/2025 2:45 PM EDT [facility] Eosinophils, Absolute 0.22 0.00 - 0.40 10*3/mm3 01/08/2025 2:45 PM EDT [facility] Basophils, Absolute 0.06 0.00 - 0.20 10*3/mm3 01/08/2025 2:45 PM EDT [facility] Immature Grans, Absolute 0.03 0.00 - 0.05 10*3/mm3 01/08/2025 2:45 PM EDT [facility] nRBC 0.0 0.0 - 0.2 /100 WBC 01/08/2025 2:45 PM EDT [facility] Blood Venipuncture / Unknown 01/08/2025 2:11 PM EDT 01/08/2025 2:36 PM EDT Tommy Joyce MD LAB BLOOD ORDERABLES Final Result [facility]
[address] [place] [address], * APTT (01/08/2025 2:11 PM EDT) PTT 26.5 22.0 - 39.0 seconds 01/08/2025 2:55 PM EDT [facility] Blood Venipuncture / Unknown 01/08/2025 2:11 PM EDT 01/08/2025 2:36 PM EDT Narrative [facility] - 01/08/2025 2:55 PM EDT PTT = The equivalent PTT values for the therapeutic range of heparin levels at 0.3 to 0.5 U/ml are 60 to 70 seconds. Tommy Joyce MD LAB BLOOD ORDERABLES Final Result Performing Organization Address [facility] Co de Phone Number [facility]
[address] [place] [address], * Protime-INR (01/08/2025 2:11 PM EDT) Protime 13.1 12.2 - 15.3 Seconds 01/08/2025 2:55 PM EDT [facility] INR 0.94 0.89 - 1.12 01/08/2025 2:55 PM EDT [facility] Blood Venipuncture / Unknown 01/08/2025 2:11 PM EDT 01/08/2025 2:36 PM EDT Tommy Joyce MD LAB BLOOD ORDERABLES Final Result Performing Organization Address [facility] Co de Phone Number [facility]
[address] [place] [address], * Hemoglobin A1c (01/08/2025 2:11 PM EDT) Hemoglobin A1C 5.50 4.80 - 5.60 % 01/08/2025 3:46 PM EDT [facility] Blood Venipuncture / Unknown 01/08/2025 2:11 PM EDT 01/08/2025 2:36 PM EDT Narrative [facility] - 01/08/2025 3:46 PM EDT Hemoglobin A1C Ranges: Increased Risk for Diabetes 5.7% to 6.4% Diabetes >= 6.5% Diabetic Goal < 7.0% Tommy Joyce MD LAB BLOOD ORDERABLES Final Result [facility]
[address] [place] [address], * (ABNORMAL) Comprehensive metabolic panel (01/08/2025 2:11 PM EDT) Glucose 100(H) 65 - 99 mg/dL 01/08/2025 3:00 PM EDT [facility] BUN 12 8 - 23 mg/dL 01/08/2025 3:00 PM EDT [facility] Creatinine 0.59 0.57 - 1.00 mg/dL 01/08/2025 3:00 PM EDT [facility] Sodium 133(L) 136 - 145 mmol/L 01/08/2025 3:00 PM EDT [facility] Potassium 4.2 3.5 - 5.2 mmol/L 01/08/2025 3:00 PM EDT [facility] Chloride 94(L) 98 - 107 mmol/L 01/08/2025 3:00 PM EDT [facility] CO2 29.0 22.0 - 29.0 mmol/L 01/08/2025 3:00 PM EDT [facility] Calcium 9.5 8.6 - 10.5 mg/dL 01/08/2025 3:00 PM EDT [facility] Total Protein 6.6 6.0 - 8.5 g/dL 01/08/2025 3:00 PM EDT [facility] Albumin 4.7 3.5 - 5.2 g/dL 01/08/2025 3:00 PM EDT [facility] ALT (SGPT) 23 1 - 33 U/L 01/08/2025 3:00 PM EDT [facility] AST (SGOT) 21 1 - 32 U/L 01/08/2025 3:00 PM EDT [facility] Alkaline Phosphatase 118(H) 39 - 117 U/L 01/08/2025 3:00 PM EDT [facility] Total Bilirubin 0.2 0.0 - 1.2 mg/dL 01/08/2025 3:00 PM EDT [facility] Globulin 1.9 gm/dL 01/08/2025 3:00 PM EDT [facility] Comment:Calculated Result A/G Ratio 2.5 g/dL 01/08/2025 3:00 PM EDT [facility] BUN/Creatinine Ratio 20.3 7.0 - 25.0 01/08/2025 3:00 PM EDT [facility] Anion Gap 10.0 5.0 - 15.0 mmol/L 01/08/2025 3:00 PM EDT [facility] eGFR 89.6 >60.0 mL/min/1.7 3 01/08/2025 3:00 PM EDT [facility] Blood Venipuncture / Unknown 01/08/2025 2:11 PM EDT 01/08/2025 2:36 PM EDT Narrative [facility] - 01/08/2025 3:00 PM EDT GFR [...] Joyce MD LAB BLOOD ORDERABLES Final Result [facility]
[address] [place] [address], from Last 3 Months Additional Health Concerns Active Problems Noted Date Diagnosed Date Autogenerated Problem 02/21/2025 Insurance MEDICARE A & B Member Subscriber Plan / Payer (Ef fective 2006-Present) Name:Tess Hastings Member ID:[id number] Relation to Subscriber:Self Name:Tess Hastings Subscriber ID:[id number] Payer ID:[id number] Group ID:Not on file Type:Not on file Address: [facility] [id number] [place] [id number] [facility] [employer] Advance Directives Documents on File Type Date Recorded Patient Pipe Line Repairer Expl anation LIVING WILL - SCAN 01/08/2025 1:18 PM almaz ng will 2024 POWER OF AUTOMATIC PINSETTER MECHANIC - SCAN 01/08/2025 1:17 PM poa 2024 PATIENT ADVANCE DIRECTIVES - SCAN 12/18/2022 12:37 PM LIVING WILL & POWER OF AUTOMATIC PINSETTER MECHANIC * CPR (Attempt to Resuscitate) (Latest Code Status on File) Date Activated Date Inactivated Comments 01/21/2025 10:23 AM 01/21/2025 7:30 PM Question Answer Comments Code Status (Patient has no pulse and is not breathing): CPR (Attempt to Resuscitate) Medical Interventions (Patie nt has pulse or is breathing): Full Support Care Teams Paper Cone Maker Relationship Specialty Start Date End Date Marcelo Vigil MD [address] [place] [address] PCP - General 11/12/15
--- OUTSIDE RECORDS SUMMARY | 2025-03-16 10:03 | XMS_ITS | Encounter Summary ---
Author Organization [facility] Address [address] [place] [address] Care Team Providers Care Maintenance Person Name Role Phone Marcelo Vigil MD Primary Care Provider [phone] Encounter Details Date Type Department Care Team (Latest Contact Info) Description 02/10/2025 Travel Social History Tobacco Use Types Packs/Day [...] or training? Not on file Preferred Language Maori 01/08/2025 Comments No Sex and Gender Information [...] [facility] [address] [address] Tommy Joyce MD [address] [address] documented as of this encounter Goals Goal Patient Goal Type Associated Problems Recent Progress Patient-Stated? Author Autogenera kaushik Goal Care Plan Autogenerated Problem No Tommy Joyce MD documented as of this encounter Visit Diagnoses Not on filedocumented in this encounter Additional Health Concerns Active Problems Noted Date Diagnosed Date Autogenerated Problem 02/21/2025 documented as of this encounter Care Teams Maintenance Person Relationship Specialty Start Date End Date Marcelo Vigil MD [address] [place] [address] PCP - General 11/12/15 documented as of this encounter
--- OUTSIDE RECORDS SUMMARY | 2025-03-16 10:03 | XMS_ITS | Encounter Summary ---
Author Organization [facility] Address [address] [place] [address] Care Team Providers Care Sand Hauler Name Role Phone Marcelo Vigil MD Primary Care Provider [phone] Reason for Visit * Reason Onset Date Comments CLINICAL MESSAGE 01/29/2025 Encounter Details Date Type Department Care Team (Late st Contact Info) Description 01/29/2025 Telephone [facility] [address] [place] [address] Erlin Franklin MD [address] [place] [address] CLINICAL MESSAGE Social History Tobacco Use Types Packs/Day Years [...] or training? Not on file Preferred Language Peruvian 01/08/2025 Comments No Sex and Gender Information Value Date Recorded Sex Assigned at Not on file Legal Sex Female 10:29 AM EDT Gender Identity Not on file Sexual Orientation Not on file documented as of this encounter Miscellaneous Notes * Telephone Encounter - Rebeca Nina - 01/30/2025 10:45 AM EDT Called pt to discuss her message; She had called in with questions on the best way to get her leg elevated; She reports having a rocking recliner but that she had placed objects underneath to preventit from rocking so that it was easier to get in and out; however, with not being able to recline, she didn't feel like her leg rest was high enough. I explained that a lot of times, it is hard to really elevate higher than the heart while in a recliner; I explained the best way to ensure the leg is higher than the heart is to lie flat on the couch or bed with multiple pillows propped underneath the leg. Pt verbalized understanding. Pt also wanting to know if a stinging sensation at the incision site was normal; I explained that it is typically from the nerves being damaged during surgery and will gradually improve as the nerves heal . Rebeca Deng CMA ([facility]), ROT * Telephone Encounter - Yumiko Beltran - 01/29/2025 4:05 PM EDT Provider: DR. ERLIN FRANKLIN Caller: TESS NINA Relationship to Patient: SELF Reason for Call: PATIENT ASKED TO SPEAK WITH REBECA AGAIN. SHE HAS ANOTHER QUESTIONS. PLEASE CALL PATIENT TOMORROW, 01/30/25 AFTER 9:00 AM. When was the patient last seen: 01/21/25 documented in this encounter Plan of Treatment Upcoming Encounters Date Type Department Care Team (Late st Contact Info) Description 05/12/2025 2:30 PM EDT Office Visit [facility] [address] [facility] [address] [address] Erlin Franklin MD [address] [address] documented as of this encounter Goals Goal Patient Goal Type Associated Problems Recent Progress Patient-Stated? Author Autogenera kaushik Goal Care Plan Autogenerated Problem No Erlin Franklin MD documented as of this encounter Visit Diagnoses Not on filedocumented in this encounter Additional Health Concerns Active Problems Noted Date Diagnosed Date Autogenerated Problem 02/21/2025 documented as of this encounter Care Teams Sand Hauler Relationship Specialty Start Date End Date Marcelo Vigil MD [address] [place] [address] PCP - General 11/12/15 documented as of this encounter
--- OUTSIDE RECORDS SUMMARY | 2025-03-16 10:04 | XMS_ITS | Data Portability ---
Author Organization [facility] Al[facility] O[facility]OS[facility] Address [address] [place] [address] Care Team Providers Care Real Estate Assessor Name Role Phone Maritza VIGIL Primary Care Provider Assessment Encounter Date Assessment Date Assessment LastModified by Organization Details LastModified Time 01/19/2023 01/19/2023 Currently doing well on combination of primidone and propranolol, would like to continue these medications. No side effects and will follow-up with me on a yearly basis or sooner should problems occur. [email or web address] Not available 01/19/2023 16:48:32 01/22/2024 01/22/2024 83 yo here today for 1y recheck on essential tremor She continues to be stable- wondering if she needs both propranolol nad primidone. She will slowly wean down on the primidone and see how she does - I agree, if she continues to be controlled with less primidone or even propranolol alone then that will be great Refills sent at current doses. RTC 1y, sooner if problems. [email or web address] Not available 01/22/2024 14:11:03 Plan of Treatment Reminders Order Date Submit Date Provider Last Modified By Organization Details Last Modified Time Details Appointments NEUROLOGY RECHECK 2024 01:30P M MISTY RODRIGUEZ MD Not available Not available Not available CT SCAN 2024 01:20P M ct_scan Not available Not available Not available RECHECK r 2024 02:30P M JOSSELYN WILDE MD Not available Not available Not available Lab None recorded. Referral None recorded. Procedures None recorded. Surgeries None recorded. Imaging None recorded. Medication Orders propranol ol ER 80 mg capsule,2 4 hr,extend ed release 2023 024 Merged with [facility], [address] [place] [address], [address], [place], [address], 01/22/2024 14:00:12 primidone 50 mg tablet 2023 024 Merged with [facility], [address] [place] [address], [address], [place], [address], 01/22/2024 14:00:11 propranol ol ER 80 mg capsule,2 4 hr,extend ed release 2022 023 Merged with [facility], [address] [place] [address], [address], [place], [address], 01/19/2023 16:53:32 Patient TargetsNo targets recorded. Patient InstructionsNo instructions recorded. Reason for Referral None Reported. Results Created Date Observation Date Name Description Value Unit Range Abnormal Flag Note LastModifiedBy Organization Detail LastModifiedTime 01/09/20 23 01/08/2023 XR, lumbo sacra l spine , 2 or [address] [address] Patien t Name: RHIANNON TOMLINSON Patianjelica t : [phone] Patien t Orderi ng Provid er: JOSSELYN Paulino EXAM DATE: 2022 EXAM: XR LUMBAR AP/LAT CLINIC AL INFORM ATION: Postop erativ e. IMAGES PROVID ED: AP, latera l, and coned- down views of the lumbar spine. COMPAR ALAINA: None. FINDIN GS AND IMPRES TIMOTHY: Spinal fusion is noted at L5-S1 level with pedicu lar screws and connec ting rods. Surgic al hardwa re is satisf actori ly placed . No eviden ce of loosen ing or infect ion is seen. Degene rative change s are seen at other levels with scolio sis. Interp reted By: Roscoe Dickinson MD Electr onical ly Signed By: Roscoe Dickinson MD on 023 3:41 PM [facility] Radiology [facility] [address] [place], [phone], 03/18/2023 21:08:16 04/02/20 23 04/02/2023 CT, thora cic spine , w/o contr ast [facility] [address] [facility] [place] [place] [address] Patianjelica t Name: RHIANNON TOMLINSON Patien t : [phone] Patien t Orderi ng Provid er: JOSSELYN TIMONE Y EXAM DATE: 2022 EXAM: CT THORAC IC W/O CONTRA ST HISTOR Y: 82-yea r-old female for follow -up of a mening ioma. COMPAR ALAINA: CT with contra st of the same date and prior CT scan dated 021. TECHNI QUE: No POC testin g for eGFR was perfor med due to absenc e of risk factor s. 1.0 mm axial direct images were obtain ed throug h the thorac ic spine, and comput er genera kaushik chin l, sagitt al, and reform atted axial sequen remi were genera kaushik from the source images . FINDIN GS: Again visual ized is a mass with increa sed attenu ation in the left latera l aspect of the spinal canal at the T11-T1 2 level. This measur es 1.0 x 1.0 x 1.3 cm. This is adjace nt to the anteri or aspect of the dura. This result s in severe stenos is of the left latera l recess and severe centra l canal stenos is. There is diffus e kyphos is of the thorac ic spine. There is no focal sublux ation. No fractu re is identi fied. There is mild to modera te anteri or margin al spurri ng. No discre te intrao sseous lesion is identi fied. There are multip le small Schmor l's nodes. There is a small right parace ntral disc protru timothy at T8-T9. There are minima l disc bulges at the remain ing levels of the thorac ic spine. There is mild bilate ral neural forami nal narrow ing at T10-T1 1 second marcela to facet arthro yamilet. There is an anteri or fusion at C5-C6 and C6-C7. There is severe bilate ral neural forami nal stenos is at C6-C7 and mild bilate ral neural forami nal narrow ing at C7-T1. The parasp inous muscul ature is symmet spring. There are senesc ent change s in the lungs. Pacema ker leads are visual ized. IMPRES TIMOTHY: 1. There is a calcif ied mass in the left latera l aspect of the spinal canal at the T11-T1 2 level which result s in severe stenos is of the left latera l recess and severe centra l canal stenos is. This may repres ent a mening ioma and this is unchan ged in appear ance from the prior CT scan. 2. There are mild diffus e degene rative change s in the thorac ic spine. Interp reted By: Zaire hansen MD Electr onical ly Signed By: Zaire hansen MD on 04/02/20 23 1:[facility] [address] [place] [address], [phone], 04/02/2023 20:53:35 04/02/20 23 04/02/2023 CT, thora cic spine , w/ contr ast [address] [address] Patien t Name: RHIANNON WARNER TZ Patien t : [phone] Patien t Orderi ng Provid er: JAISON Mishra EXAM DATE: 2022 EXAM: CT THORAC IC WITH CONTRA ST HISTOR Y: 82-yea r-old female for follow -up of a mening ioma. COMPAR ALAINA: CT withou t contra st of the same date and prior CT scan dated 021. TECHNI QUE: A baseli ne serum creati nine with eGFR was obtain ed prior to inject ion of contra st medium due to the patien ts risk factor s for LUCY. Calcul ated eGFR at time of exam was GFR 84 1.0 mm axial direct images were obtain ed throug h the thorac ic spine, and comput er genera kaushik chin l, sagitt al, and reform atted axial sequen remi were genera kaushik from the source images . 100 mL Omnipa que 350 (100 mL bottle of [facility] [address]- 1414-9 1) was intrav enousl y admini stered to the patien t. 0 was wasted and discar ded. FINDIN GS: Again visual ized is a mass with increa sed attenu ation in the left latera l aspect of the spinal canal at the T11-T1 2 level. This measur es 1.0 x 1.0 x 1.3 cm. This is adjace nt to the anteri or aspect of the dura. This result s in severe stenos is of the left latera l recess and severe centra l canal stenos is. After intrav enous admini strati on of iodina kaushik contra st, no enhanc ement is identi fied. There is diffus e kyphos is of the thorac ic spine. There is no focal sublux ation. No fractu re is identi fied. There is mild to modera te anteri or margin al spurri ng. No discre te intrao sseous lesion is identi fied. There are multip le small Schmor l's nodes. There is a small right parace ntral disc protru timothy at T8-T9. There are minima l disc bulges at the remain ing levels of the thorac ic spine. There is mild bilate ral neural forami nal narrow ing at T10-T1 1 second marcela to facet arthro yamilet. There is an anteri or fusion at C5-C6 and C6-C7. There is severe bilate ral neural forami nal stenos is at C6-C7 and mild bilate ral neural forami nal narrow ing at C7-T1. The parasp inous muscul ature is symmet spring. There are senesc ent change s in the lungs. Pacema ker leads are visual ized. IMPRES TIMOTHY: 1. There is a calcif ied mass in the left latera l aspect of the spinal canal at the T11-T1 2 level which result s in severe stenos is of the left latera l recess and severe centra l canal stenos is. This may repres ent a mening ioma and this is unchan ged in appear ance from the prior CT scan. 2. There are mild diffus e degene rative change s in the thorac ic spine. Interp reted By: Zaire hansen MD Electr onical ly Signed By: Zaire hansen MD on 04/02/20 23 1:34 PM [facility] Radiology [facility] [address] [place] [address], [phone], 04/18/2023 09:38:05 04/02/2004/02/2023 CT, lumba r spine , w/wo contr ast [facility] [address] [facility] [place] [facility] [place] [address] Patien t Name: RHIANNON TOMLINSON Patien t : [phone] Patien t Orderi ng Provid er: JOSSELYN TIMAKIRA Y EXAM DATE: 2022 EXAM: CT LUMBAR W/WO CONTRA ST HISTOR Y: 82-yea r-old female with low back pain. COMPAR ALAINA: None. TECHNI QUE: A baseli ne serum creati nine with eGFR was obtain ed prior to inject ion of contra st medium due to the patien ts risk factor s for LUCY. Calcul ated eGFR at time of exam was GFR 84 1 mm direct axial slices were obtain ed throug h the lumbar spine. Comput er-gen erated axial, sagitt al, and chin l recons tructi ons are also provid ed for interp retati on. 100 mL Omnipa que 350 (100 mL of a 500 mL bottle of [facility] [address]- 1414-9 8) was intrav enousl y admini stered to the patien t. 0 was wasted and discar ded. FINDIN GS: The patien t is status post plastic jig and fixture builder ior fusion at L5-S1. There is beam harden ing artifa ct from the pedicl e screws and plastic jig and fixture builder ior fusion hardwa re. There is lucenc y adjace nt to the L5 screws consis tent with loosen ing. There is grade 1 anteri or listhe sis of L5 on S1. There is diffus e levocu rvatur e of the lumbar spine. There is lumbar izatio n of the S1 verteb ral body. There is no fractu re. There is modera te to severe anteri or margin al osteop hytic spurri ng. No pathol ogic lesion is identi fied in the lumbar spine. There is a mass in the spinal canal at the T11-T1 2 level. This is descri bed in the CT scan of the thorac ic spine of the same date. T12-L1 : There is a minima l disc bulge. There is no centra l canal stenos is or neural forami nal stenos is. L1-L2: There is a mild disc bulge. There is no centra l canal stenos is. There is no neural forami nal stenos is. L2-L3: There is a a broad- based disc protru timothy and right greate r than left endpla te spurri ng. There is no centra l canal stenos is. There is severe right neural forami nal stenos is. L3-L4: There is a a broad- based disc protru timothy and severe right endpla te spurri ng. There is mild facet arthro yamilet. There is no centra l canal stenos is. There is severe right and mild left neural forami nal stenos is. L4-L5: There is a a broad- based disc protru timothy, mild endpla te spurri ng and severe facet arthro yamilet. There is no centra l canal stenos is. There is modera te bilate ral neural forami nal stenos is. L5-S1: There is a prior fusion with residu al endpla te spurri ng. There is no centra l canal stenos is. There is severe left neural forami nal stenos is. There is no abnorm al enhanc ement in the lumbar spine. There are mild degene rative change s in the SI joints . IMPRES TIMOTHY: 1. The patien t is status post plastic jig and fixture builder ior fusion and agnieszka ctomy at L5-S1. There is lucenc y adjace nt to the L5 screws consis tent with loosen ing. 2. There is severe left neural forami nal stenos is at L5-S1, modera te bilate ral neural forami nal narrow ing at L4-L5, and severe right neural forami nal narrow ing at L2-L3 and L3-L4. 3. There is lumbar izatio n of the S1 verteb ral body. 4. There is a mass in the spinal canal at the T11-T1 2 level which is descri bed on the CT scan of the thorac ic spine of the same date. Interp reted By: Zaire hansen MD Electr onical ly Signed By: Zaire hansen MD on 04/02/20 1:40 PM [facility] [address], [phone], 04/02/2023 20:53:26 04/03/20 24 04/02/2024 CT, thora cic spine , w/wo contr ast [facility] [address] [place] [address] Patianjelica t Name: RHIANNON TOMLINSON Patianjelica t : [phone] Patien t Orderi ng Provid er: JOSSELYN PINEDO Y EXAM DATE: 2023 EXAM: CT THORAC IC W/WO CONTRA ST HISTOR Y: 83-yea r-old female for follow -up of a mass. COMPAR ALAINA: CT dated 04/02/20 TECHNI QUE: No POC testin g for eGFR was perfor med due to absenc e of risk factor s. 1.0 mm axial direct images were obtain ed throug h the thorac ic spine, and comput er genera kaushik chin l, sagitt al, and reform atted axial sequen remi were genera kaushik from the source images . 100 mL Omnipa que 350 (100 mL bottle of [facility] [address]- 1414-9 1) was intrav enousl y admini stered to the patien t. 0 mL was wasted and discar ded. FINDIN GS: Again visual ized is a calcif ied mass with increa sed attenu ation in the left latera l aspect of the spinal canal at the T11-T1 2 level. This measur es 1.0 x 1.0 x 1.3 cm. This is adjace nt to the anteri or aspect of the dura. This result s in severe stenos is of the left latera l recess and severe centra l canal stenos is. There is no enhanc ement of this mass after intrav enous admini strati on of iodina kaushik contra st. No abnorm al enhanc ement is identi fied throug hout the thorac ic spine. There is diffus e kyphos is and dextro curvat ure of the thorac ic spine. There is no focal sublux ation. No fractu re is identi fied. There is mild to modera te anteri or margin al spurri ng. No discre te intrao sseous lesion is identi fied. There are multip le small Schmor l's nodes. There is a small right parace ntral disc protru timothy at T8-T9. There are minima l disc bulges at the remain ing levels of the thorac ic spine. There is mild bilate ral neural forami nal narrow ing at T10-T1 1 second marcela to facet arthro yamilet. There is mild bilate ral neural forami nal narrow ing at C7-T1. The parasp inous muscul ature is symmet spring. There are senesc ent change s in the lungs. Pacema ker leads are visual ized. IMPRES TIMOTHY: 1. Again seen is a calcif ied mass in the left latera l aspect of the spinal canal at the T11-T1 2 level which result s in severe stenos is of the left latera l recess and severe centra l canal stenos is. This may repres ent a mening ioma and this is unchan ged in appear ance from the prior CT scan. (There is no enhanc ement of this mass, and this mass may be follow ed in the future withou t intrav enous contra st.) 2. There are mild diffus e degene rative change s in the thorac ic spine. Interp reted By: Zaire hansen MD Electr onical ly Signed By: Zaire hansen MD on 04/03/20 24 2:20 PM [facility] Radiology [facility] [address] [facility], [place], [phone], 04/16/2024 21:06:39 06/03/20 24 06/03/2024 nerve condu ction study /EMG, upper extre mity (PROC ) No observ ation record ed. [email or web address] Not Available 2023 13:49:55 Result Notes Documentation Provider Name and Address Organization Details Recorded Time Ct, Thoracic Spine, W/o Contrast : [facility] [address] [place] [address] Patient Name: TESS NINA Patient : 1940 Patient Ordering Provider: JOSSELYN WILDE EXAM DATE: 04/02/2023 EXAM: CT THORACIC W/O CONTRAST HISTORY: 82-year-old female for follow-up of a meningioma. COMPARISON: CT with contrast of the same date and prior CT scan dated 05/25/2021. TECHNIQUE: No POC testing for eGFR was performed due to absence of risk factors. 1.0 mm axial direct images were obtained through the thoracic spine, and computer generated coronal, sagittal, and reformatted axial sequences were generated from the source images. FINDINGS: Again visualized is a mass with increased attenuation in the left lateral aspect of the spinal canal at the T11-T12 level. This measures 1.0 x 1.0 x 1.3 cm. This is adjacent to the anterior aspect of the dura. This results in severe stenosis of the left lateral recess and severe central canal stenosis. There is diffuse kyphosis of the thoracic spine. There is no focal subluxation. No fracture is identified. There is mild to moderate anterior marginal spurring. No discrete intraosseous lesion is identified. There are multiple small Schmorl's nodes. There is a small right paracentral disc protrusion at T8-T9. There are minimal disc bulges at the remaining levels of the thoracic spine. There is mild bilateral neural foraminal narrowing at T10-T11 secondary to facet arthropathy. There is an anterior fusion at C5-C6 and C6-C7. There is severe bilateral neural foraminal stenosis at C6-C7 and mild bilateral neural foraminal narrowing at C7-T1. The paraspinous musculature is symmetric. There are senescent changes in the lungs. Pacemaker leads are visualized. IMPRESSION: 1. There is a calcified mass in the left lateral aspect of the spinal canal at the T11-T12 level which results in severe stenosis of the left lateral recess and severe central canal stenosis. This may represent a meningioma and this is unchanged in appearance from the prior CT scan. 2. There are mild diffuse degenerative changes in the thoracic spine. Interpreted By: Neville Gallegos MD ELYN WILDE MD [address] [place] [address], [phone] 04/02/2023 20:53:35 Ct, Thoracic Spine, W/ Contrast : [address] [address] Patient Name: TESS NINA Patient : 1940 Patient Ordering Provider: JAISON FRITZ EXAM DATE: 04/02/2023 EXAM: CT THORACIC WITH CONTRAST HISTORY: 82-year-old female for follow-up of a meningioma. COMPARISON: CT without contrast of the same date and prior CT scan dated 05/25/2021. TECHNIQUE: A baseline serum creatinine with eGFR was obtained prior to injection of contrast medium due to the patients risk factors for LUCY. Calculated eGFR at time of exam was GFR 84 1.0 mm axial direct images were obtained through the thoracic spine, and computer generated coronal, sagittal, and reformatted axial sequences were generated from the source images. 100 mL Omnipaque 350 (100 mL bottle of [facility] [id number]) was intravenously administered to the patient. 0 was wasted and discarded. FINDINGS: Again visualized is a mass with increased attenuation in the left lateral aspect of the spinal canal at the T11-T12 level. This measures 1.0 x 1.0 x 1.3 cm. This is adjacent to the anterior aspect of the dura. This results in severe stenosis of the left lateral recess and severe central canal stenosis. After intravenous administration of iodinated contrast, no enhancement is identified. There is diffuse kyphosis of the thoracic spine. There is no focal subluxation. No fracture is identified. There is mild to moderate anterior marginal spurring. No discrete intraosseous lesion is identified. There are multiple small Schmorl's nodes. There is a small right paracentral disc protrusion at T8-T9. There are minimal disc bulges at the remaining levels of the thoracic spine. There is mild bilateral neural foraminal narrowing at T10-T11 secondary to facet arthropathy. There is an anterior fusion at C5-C6 and C6-C7. There is severe bilateral neural foraminal stenosis at C6-C7 and mild bilateral neural foraminal narrowing at C7-T1. The paraspinous musculature is symmetric. There are senescent changes in the lungs. Pacemaker leads are visualized. IMPRESSION: 1. There is a calcified mass in the left lateral aspect of the spinal canal at the T11-T12 level which results in severe stenosis of the left lateral recess and severe central canal stenosis. This may represent a meningioma and this is unchanged in appearance from the prior CT scan. 2. There are mild diffuse degenerative changes in the thoracic spine. Interpreted By: Neville Galelgos MD ON FRITZ PA-C [address] [place] [address], [phone], [facility] 04/18/2023 09:38:05 Ct, Lumbar Spine, W/wo Contrast : [address] [address] Patient Name: TESS NINA Patient : 1940 Patient Ordering Provider: JOSSELYN WILDE EXAM DATE: 04/02/2023 EXAM: CT LUMBAR W/WO CONTRAST HISTORY: 82-year-old female with low back pain. COMPARISON: None. TECHNIQUE: A baseline serum creatinine with eGFR was obtained prior to injection of contrast medium due to the patients risk factors for LUCY. Calculated eGFR at time of exam was GFR 84 1 mm direct axial slices were obtained through the lumbar spine. Computer-generated axial, sagittal, and coronal reconstructions are also provided for interpretation. 100 mL Omnipaque 350 (100 mL of a 500 mL bottle of [facility] [id number]) was intravenously administered to the patient. 0 was wasted and discarded. FINDINGS: The patient is status post posterior fusion at L5-S1. There is beam hardening artifact from the pedicle screws and posterior fusion hardware. There is lucency adjacent to the L5 screws consistent with loosening. There is grade 1 anterior listhesis of L5 on S1. There is diffuse levocurvature of the lumbar spine. There is lumbarization of the S1 vertebral body. There is no fracture. There is moderate to severe anterior marginal osteophytic spurring. No pathologic lesion is identified in the lumbar spine. There is a mass in the spinal canal at the T11-T12 level. This is described in the CT scan of the thoracic spine of the same date. T12-L1: There is a minimal disc bulge. There is no central canal stenosis or neural foraminal stenosis. L1-L2: There is a mild disc bulge. There is no central canal stenosis. There is no neural foraminal stenosis. L2-L3: There is a a broad-based disc protrusion and right greater than left endplate spurring. There is no central canal stenosis. There is severe right neural foraminal stenosis. L3-L4: There is a a broad-based disc protrusion and severe right endplate spurring. There is mild facet arthropathy. There is no central canal stenosis. There is severe right and mild left neural foraminal stenosis. L4-L5: There is a a broad-based disc protrusion, mild endplate spurring and severe facet arthropathy. There is no central canal stenosis. There is moderate bilateral neural foraminal stenosis. L5-S1: There is a prior fusion with residual endplate spurring. There is no central canal stenosis. There is severe left neural foraminal stenosis. There is no abnormal enhancement in the lumbar spine. There are mild degenerative changes in the SI joints. IMPRESSION: 1. The patient is status post posterior fusion and laminectomy at L5-S1. There is lucency adjacent to the L5 screws consistent with loosening. 2. There is severe left neural foraminal stenosis at L5-S1, moderate bilateral neural foraminal narrowing at L4-L5, and severe right neural foraminal narrowing at L2-L3 and L3-L4. 3. There is lumbarization of the S1 vertebral body. 4. There is a mass in the spinal canal at the T11-T12 level which is described on the CT scan of the thoracic spine of the same date. Interpreted By: Neville Gallegos MD ELYN WILDE MD [address] [place] [address], [phone], [facility] 04/02/2023 20:53:26 Ct, Thoracic Spine, W/wo Contrast : [address] [address] Patient Name: TESS NINA Patient : 1940 Patient Ordering Provider: JOSSELYN WILDE EXAM DATE: 04/02/2024 EXAM: CT THORACIC W/WO CONTRAST HISTORY: 83-year-old female for follow-up of a mass. COMPARISON: CT dated 04/02/2023 TECHNIQUE: No POC testing for eGFR was performed due to absence of risk factors. 1.0 mm axial direct images were obtained through the thoracic spine, and computer generated coronal, sagittal, and reformatted axial sequences were generated from the source images. 100 mL Omnipaque 350 (100 mL bottle of [facility] [id number]) was intravenously administered to the patient. 0 mL was wasted and discarded. FINDINGS: Again visualized is a calcified mass with increased attenuation in the left lateral aspect of the spinal canal at the T11-T12 level. This measures 1.0 x 1.0 x 1.3 cm. This is adjacent to the anterior aspect of the dura. This results in severe stenosis of the left lateral recess and severe central canal stenosis. There is no enhancement of this mass after intravenous administration of iodinated contrast. No abnormal enhancement is identified throughout the thoracic spine. There is diffuse kyphosis and dextrocurvature of the thoracic spine. There is no focal subluxation. No fracture is identified. There is mild to moderate anterior marginal spurring. No discrete intraosseous lesion is identified. There are multiple small Schmorl's nodes. There is a small right paracentral disc protrusion at T8-T9. There are minimal disc bulges at the remaining levels of the thoracic spine. There is mild bilateral neural foraminal narrowing at T10-T11 secondary to facet arthropathy. There is mild bilateral neural foraminal narrowing at C7-T1. The paraspinous musculature is symmetric. There are senescent changes in the lungs. Pacemaker leads are visualized. IMPRESSION: 1. Again seen is a calcified mass in the left lateral aspect of the spinal canal at the T11-T12 level which results in severe stenosis of the left lateral recess and severe central canal stenosis. This may represent a meningioma and this is unchanged in appearance from the prior CT scan. (There is no enhancement of this mass, and this mass may be followed in the future without intravenous contrast.) 2. There are mild diffuse degenerative changes in the thoracic spine. 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 Procedures Surgical History Date Name Laterality Status Provider Name and Address Organization Details Recorded Time 024 Electromyography (EMG) with Nerve Conduction Study (NCV) completed Vidya Cyr (Nicky) [facility] 06/03/2024 13:02:37 022 Back Surgery completed Liiba Bond [facility] 01/19/2023 15:40:28 018 Electromyography (EMG) with Nerve Conduction Study (NCV) completed Vidya Cyr (Nicky) [facility] 10/04/2017 13:04:03 017 Interpretation completed JAISON FRITZ [facility] [place], [phone], [facility] 08/21/2017 14:56:44 017 Interpretation completed JAISON CATRINA, PA-C [address] [place] [address], [phone], [facility] 06/20/2017 12:17:16 013 Back Surgery completed Jessica Nixr [facility] 06/20/2017 08:48:13 Cholecystectomy completed Formerly named [facility] 11/15/2016 11:23:25 Tonsillectomy completed Formerly named [facility] 11/15/2016 11:23:28 Hysterectomy completed Formerly named [facility] 11/15/2016 11:23:31 Thyroid Surgery completed Formerly named [facility] 11/15/2016 11:23:34 Shoulder Surgery completed Formerly named [facility] 11/15/2016 11:23:44 Other completed [facility] named [facility] 11/15/2016 11:24:00 Imaging Results None recorded. Procedure Notes None recorded. Medical Equipment None Reported. Allergies No known drug allergies Medications Name Sig Start Date Stop Date Status Note LastModified by Organization Details LastModified Time cyclobenz aprine 10 mg tablet Take 1 tablet 3 times a day by oral route as needed. 01/19 completed Not Available Not Available Not Available primidone 50 mg tablet TAKE 2 TABS BY MOUTH EVERY MORNING AND 3 TABS AT BEDTIME 2024 active Not Available Not Available Not Avai lable atorvasta tin 20 mg tablet active Not Available Not Available Not Available atorvasta tin 10 mg tablet TAKE 2 TABLETS BY MOUTH EVERY DAY 07/17 completed Not Available Not Available Not Available azithromy lucy 250 mg tablet 07/13 completed Not Available Not Available Not Available aspirin 325 mg tablet Take 1 tablet every day by oral route as needed. active Not Available Not Available No t Available hydrocodo ne 5 mg-acetam inophen 325 mg tablet 11/15 completed Not Available Not Available Not Available meloxicam 15 mg tablet 07/17 completed Not Available Not Available Not Available prednison e 20 mg tablet active Not Available Not Available Not Available Plavix 75 mg tablet Daily 11/15 completed Frequenc y: daily;Me dication Descript ion: clopidog rel; Dosage:1 ; Route:or al; refills: 0 Not Available Not Available Not Available tramadol 50 mg tablet 07/17 completed Not Available Not Available Not Available acetamino phen 500 mg tablet Take 2 tablets every 6 hours by oral route as needed. active Not Available Not Available No t Available prednison e 10 mg tablets in a dose pack 07/13 completed Not Available Not Available Not Available propranol ol 10 mg tablet TAKE ONE OR TWO TABLETS BY MOUTH 3 TIMES A DAY NEEDED TOLERATE D FOR BREAKTHR OUGH TREMOR DIRECTED 07/13 completed Not Available Not Available Not Available methocarb harsh 750 mg tablet active Not Available Not Available No t Available meclizine 25 mg tablet Take 1 tablet 3 times a day by oral route as needed. active Not Available Not Available No t Available cephalexi n 500 mg capsule 11/20 completed Not Available Not Available Not Available oseltamiv ir 75 mg capsule 11/20 completed Not Available Not Available Not Available triamcino lone acetonide 0.1 % topical ointment active Not Available Not Available Not Available lidocaine 5 % topical patch 11/20 completed Not Available Not Available Not Available propranol ol ER 80 mg capsule,2 4 hr,extend ed release TAKE 1 CAPSULE BY MOUTH ONCE DAILY 2024 active Not Available Not Available Not Avai lable hydrochlo rothiazid e 12.5 mg capsule Daily 11/15 completed Frequenc y: daily;Me dication Descript ion: hydrochl orothiaz ny; Dosage:1 ; Route:or al; refills: 0; Quantity :30 Not Available Not Available Not Available ibuprofen 200 mg tablet Take 1 tablet every 6 hours by oral route as needed. active Not Available Not Available No t Available gabapenti n 300 mg capsule 07/02 completed Not Available Not Available Not Available omeprazol e 20 mg capsule,d elayed release 11/20 completed Not Available Not Available Not Available diclofena c sodium 75 mg tablet,de layed release Take 1 tablet twice a day by oral route. 11/20 completed Not Available Not Available Not Available hydrochlo rothiazid e 25 mg tablet active Not Available Not Available Not Available zolpidem 5 mg tablet 07/13 completed Not Available Not Available Not Available furosemid e 20 mg tablet active Not Available Not Available Not Available gabapenti n 100 mg capsule Take 1 capsule every day by oral route at bedtime. 07/02 completed Not Available Not Available Not Available prednison e 5 mg tablets in a dose pack 11/20 completed Not Available Not Available Not Available fluocinon ny 0.05 % topical solution 07/17 completed Not Available Not Available Not Available oxycodone -acetamin ophen 7.5 mg-325 mg tablet Take 1 tablet every 6 hours by oral route as needed. 07/17 completed Not Available Not Available Not Available albuterol sulfate HFA 90 mcg/actua tion aerosol inhaler prn 07/17 completed Not Available Not Available Not Available Vitamin D2 1,250 mcg (50,000 unit) capsule TAKE 1 CAPSULE BY MOUTH ONCE WEEKLY active Not Available Not Available No t Available propranol ol 20 mg tablet TAKE 1 TABLET BY MOUTH THREE TIMES DAILY 01/19 completed Not Available Not Available Not Available amoxicill in 875 mg-potass ium clavulana te 125 mg tablet 01/21 completed Not Available Not Available Not Available Benadryl 25 mg capsule As needed active Frequenc y: prn;Alt Frequenc y: prn;Medi cation Descript ion: diphenhy dramine; Dosage:1 -2; Route:or al; refills: 0 Not Available Not Available Not Available Ibuprofen -Pmr 200 mg tablet As needed 11/20 completed Frequenc y: prn;Medi cation Descript ion: ibuprofe n; Dosage:1 ; Route:or al; refills: 0 Not Available Not Available Not Available rosuvasta tin 5 mg tablet Daily 11/20 completed Not Available Not Available Not Available rosuvasta tin 10 mg tablet 11/15 completed Not Available Not Available Not Available omega-3 acid ethyl esters 1 gram capsule active Not Available Not Available Not Available Vitamin C active Medicati on Descript ion: ascorbic acid; refills: 0 Not Available Not Available Not Available Vitamin D3 Daily 07/13 completed Frequenc y: daily;Me dication Descript ion: cholecal ciferol; Dosage:1 ; Route:or al; refills: 0 Not Available Not Available Not Available Exforge 10 mg-320 mg tablet 11/15 completed Not Available Not Available Not Available Exforge 5 mg-320 mg tablet Daily 11/15 completed Frequenc y: daily;Me dication Descript ion: amlodipi ne-valsa rtan; Dosage:1 ; Route:or al; refills: 0 Not Available Not Available Not Available amlodipin e 10 mg-valsar flower 160 mg tablet Take 1 tablet every day by oral route. active Not Available Not Available No t Available amlodipin e 5 mg-valsar flower 160 mg tablet 11/15 completed Not Available Not Available Not Available Benefiber Every morning active Frequenc y: qam;Medi cation Descript ion: OTC; Dosage:2 teaspoon s; Route:or al; refills: 0 Not Available Not Available Not Available Lovaza 07/17 completed 900 mg QD Not Available Not Available Not Available diclofena c 1 % topical gel 11/20 completed Not Available Not Available Not Available Prepopik 10 mg-3.5 gram-12 gram oral powder packet 11/20 completed Not Available Not Available Not Available Anoro Ellipta 62.5 mcg-25 mcg/actua tion powder for inhalatio n 1 puff daily active Not Available Not Available No t Available ProAir RespiClic k 90 mcg/actua tion breath activated active Not Available Not Available No t Available Shingrix (PF) 50 mcg/0.5 mL intramusc ular suspensio n, kit 07/13 completed Not Available Not Available Not Available QuickVue At-Home COVID-19 Test kit 01/19 completed Not Available Not Available Not Available Vitals Date Recorded Body height Body mass index (BMI) Body weight Heart rate Oxygen saturation Oxygen saturation in Arterial blood by Pulse oximetry Systolic And Diastolic Provider Name and Address Organization Details Last Updated DateTime 3 162.56 cm 28.2 kg/m2 72843.5 5 g 73 /min 93 % 93 % 122/76 mm[Hg] Libia Ronda [facility] 3 15:39:06 Date Recorded Body height Body mass index (BMI) Body weight Heart rate Oxygen saturation Oxygen saturation in Arterial blood by Pulse oximetry Systolic And Diastolic Provider Name and Address Organization Details Last Updated DateTime 4 162.56 cm 28.2 kg/m2 52504.1 5 g 70 /min 95 % 95 % 122/79 mm[Hg] Faviola Reilly [facility] 4 13:27:49 Date Recorded Body height Body mass index (BMI) Body weight Systolic And Diastolic Provider Name and Address Organization Details Last Updated DateTime 04/02/2023 162.56 cm 28.2 kg/m2 25178.15 g 122/82 mm[Hg] [facility] 04/02/2023 14:30:41 Date Recorded Body height Body mass index (BMI) Body weight Systolic And Diastolic Provider Name and Address Organization Details Last Updated DateTime 05/05/2024 162.56 cm 28.2 kg/m2 79866.15 g 122/74 mm[Hg] [facility] 05/05/2024 14:37:21 Social History Question Answer Notes LastModified by Organizat ion Details LastModified Time Tobacco Smoking Status [facility] 15:35:45 Live Alone Or With Others? With Others Information not available 11/15/2016 Marital Status Informat ion not available 11/15/2016 What Was The Date Of Your Most Recent Tobacco Screening? 01/19/2023 [email or web address] Information not available 01/19/2023 Sex: Unknown Functional Status Question Answer Note LastModified by Organizat ion Details LastModified Time What is your level of alcohol consumption? Occasional Information not available 11/15/2016 What is your occupation? Retired Information not available 11/15/2016 Mental Status None recorded. Family History Relationship Description Onset Age of this Age Resolved Age Notes LastModified by Organization Details LastModified Time Mother Family history of malignant neoplasm [email or web address] Not available 11:22:50 Mother Diabetes mellitus [email or web address] Not available 11:22:54 Mother Cerebrovascu lar accident [email or web address] Not available 11/15/2016 11:23:00 Daughter Family history of malignant neoplasm [email or web address] Not available 11:22:50 Medical History Condition Response Arthritis Y Hypertension Y High Cholesterol Y Neurological Problems Y Gynecological HistoryNo gynecological history recorded. Obstetrics History GPAL:G 0 P 0 0 0 0 Past Encounters Encounter ID Performer Location Encounter Start Date Encounter Closed Date Diagnosis/Indication Diagnosis SNOMED-CT Code Diagnosis ICD10 Code Diagnosis Note [id number] PATRICIA LOPEZ MD [facility]UROLOGY [facility] [address] [place] [address] 11/15/2016 11:36:08 11/15/2016 16:51:37 Essential tremor 912879272 G25.0 essential tremor - responding to primidone but effecting her eating - intolerant of propranolo l due to bradycardi a s/p pacemaker due to pulse in the 40s; improved energy CTS R>L, s/p release R, steroid injections L; responded well to injections ophthalmic stroke 2015; no recurrent TIA or stroke symptoms -- pt so counseled on various TIA/stroke symptoms and advised 911 immediatel y if these occur hip pain, ? bursitis quit smoking 2014, fall, and has not resumed; pt commended - Trial increasing primidone 50 mg 3 tabs qhs and 50 mg 2 tabs qam-- Previously declined propranolo l-- counselled on anticipati on of progressio n and alternativ e tx options-- DBS previously discussed- Serial LFTs, CBC per PCP- Now off ASA and Plavix due to GI bleed- still with easy bruising on Lovaza- Control of HTN - goal 120/80 or less - recommend she continue to monitor- Continue Crestor and Lovaza- Trial turmeric for arthritis - [employer] - looked up online for pt - Suggested she start on CoQ10 100mg qam-- Counseled on benefits of CoQ10- Pt counselled again on signs/symp toms of stroke and advised 911 for any sx -- look in mirror, look for symmetry, problems with coordinati on, difficulty with gait, communicat ion, slurring speech, vision changes. 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 Foster.I nick reviewed with Dr. Foster, and calcified mass in thoracic spine is consistent with meningioma . Pt does not appear to be symptomati c from this lesion. Will have her follow up in [address] scan. Pt was made aware of red flags associated with cord compressio n and to contact us if she has developmen t of these new symptoms or worsening of her current back pain. Pt agrees with this plan. PT was seen and examined by myself and Dr. Foster who agrees with above. Low back pain 890930056 M54.5 77F s/p C4-6 ACDF on 07/03/[address] Foster.N o evidence of left sided stenosis on CT scan, she does have an osteophyte complex at L3-4 in the right neural foramen, but she does not have any right sided symptoms. We would need a MRI to evaluate further but she is unable to get one due to having a pacemaker. She is uninterest ed in getting a myelogram at this time. We will proceed with referral for JEFF and a PT referral. We will have her return in 3 months to assess her progress. If she is not doing any better, consider CT Myelogram. PT was seen and examined by myself and Dr. Foster who agrees with above. [id number] JAISON FRITZ PA-C [facility] [address] [facility] [place] [address] 08/21/2017 11:09:10 08/23/2017 14:15:56 Cervical spondylosis with radiculopathy 843391358 M47.22 77F with ppm, s/p C3-5 ACDF on 07/03/[address] Foster for myelopathy and C5 radiculopa thy with known lumbar spondylosi s and thoracic benign hemangioma now with cervical radiculopa thy. Her symptoms and presentati on suggest a C8 radiculopa thy. She has an follow up appointmen t with her pain managment MD on 08/31/16. I think that it is reasonable to try a JEFF at C7-T1 to see if she gets any relief. We will have her follow up at her scheduled appointmen t at the end on August to discuss the progress of her low back and cervical symptoms. If she does not respond well to these injections , or if her hand symptoms get worse, will need to send her for a CT Myelogram to assess for nerve impingemen t. It would likely be best to go ahead and image her whole spine if a myelogram was needed so avoid multiple lumbar punctures. I will also Rx diclofenac 75mg bid. I asked her to stop NSAIDs OTC while on this medication . [id number] JAMAR FOSTER MD [facility] [address] [place] [address] 09/25/2017 10:08:14 09/27/2017 12:36:04 Cervical spondylosis with radiculopathy 689043640 M47.22 -The patient continues to have these right arm symptoms. She does have some deficits within the right hand. She is right-hand ed dominant of this does affect some of her activity levels. 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 Previous ACDF C3-5. Suspect some adjacent level disease at C5-6 or C6-7 based on symptoms. Potentiall y a problem at C7-T1. Myelogram will be ordered of the cervical and lumbar spine. Chronic low back issues which are unchanged acutely. We will see her back in a month. Also I have ordered an EMG to further evaluate these right arm symptoms. 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 Skin sensa tion disturbance 19611355 R20.9 Muscle weakness 71487099 M62.81 [id number] JAMAR FOSTER MD [facility] [address] [place] [address] 10/17/2017 11:09:01 10/17/2017 13:03:12 Cervical radiculopathy 08205565 M54.12 Spondylosi s without myelopathy 58738673 M47.9 [id number] PATRICIA LOPEZ MD NEUROLOGY [facility] [address] [place] [address] 11/20/2017 13:26:56 11/20/2017 14:35:27 Essential tremor 774943576 G25.0 essential tremor- responding to primidone, improved with higher dose, but concern about possibly effecting liver function which has been elevated recently. She is not on trial off Crestor for 6 weeks.- intolerant of propranolo l due to bradycardi a s/p pacemaker due to pulse in the 40s; improved energy CTS R>L, s/p release R, steroid injections L; responded well to injections ophthalmic stroke 2015; no recurrent TIA or stroke symptoms -- pt so counseled on various TIA/stroke symptoms and advised 911 immediatel y if these occur hip pain, ? bursitis quit smoking 2014, fall, and has not resumed; pt commended - Foe now continue primidone 50 mg 3 tabs qhs and 50 mg 2 tabs qam-- Previously declined propranolo l- if LFTs continue to be elevated, may need to wean off primidone, and would consider a trial of Topamax-- counseled on anticipati on of progressio n and alternativ e tx options-- DBS previously discussed- Serial LFTs, CBC per PCP- Now off ASA and Plavix due to GI bleed- still with easy bruising on Lovaza- Control of HTN - goal 120/80 or less - recommend she continue to monitor- Continue Lovaza, holding Crestor at this time.- Again, recommend she start on CoQ10 100mg qam-- Counseled on benefits of CoQ10 -RTC 1 year Arterial embolism 458909 02 I74.9 ophthalmic ; 2016 Essential hypertension 00464448 I10 goal BP < 120/80 Hyperlipidemia 72856187 E78.5 on Lovaza, holding Crestor due to elevated LFTsadd CoQ10 Pain of hip region 87884 002 M25.552 will be having SI injections CC: Marcelo Vigil MD [id number] JAMAR FOSTER MD [facility] [address] [place] [address] 01/29/2018 08:58:10 01/29/2018 11:06:20 Cervical spondylosis with radiculopathy 059689749 M47.22 -Happy to see that the patient has responded currently to conservati ve measures. There probably are some mild deficit within the hand strength on the right side but these are chronic and unchanged. She is realized good pain relief with conservati ve measures. She was especially complement marcela of her response to the chiropract or care. We will continue to see her for other issues going forward. No role currently for surgical interventi on [id number] JAMAR FOSTER MD [facility] [address] [place] [address] 06/19/2018 11:04:59 06/21/2018 10:47:59 Spinal meningioma 278146886 D32.1 -The patient has a intraspina l tumor located in the left lateral recess at T11-T12. Based on the CT of the thoracic spine performed prior to this visit, there is no radiograph ic evidence of progressio n of the size of the tumor. She remains clinically silent from this intraspina l tumor as well. We discussed the indication s, benefits, risk of operating. I think that she has a high likelihood of potential spinal cord injury with an operation and recommend further observatio n unless there is growth of the tumor or the patient becomes clinically symptomati c. She is aware that she could have a decompensa tion more acutely. She understand s the risk of all treatment options and agrees with the treatment plan are further observatio n. We will get a CT scan of the thoracic spine at her visit next year. [id number] PATRICIA LOPEZ MD NEUROLOGY [facility] [address] [place] [address] 07/02/2018 14:59:15 07/03/2018 08:34:52 Essential tremor 263844621 G25.0 essential tremor- responding to primidone, improved with higher dose and has been on the, but concern about possibly effecting liver function which has been elevated recently.- may consider adding low dose propranolo l for breakthrou gh tremor s/p pacemaker due to pulse in the 40s; improved energy CTS R>L, s/p release R, steroid injections L; responded well to injections ophthalmic stroke 2016; no recurrent TIA or stroke symptoms -- pt so counseled on various TIA/stroke symptoms and advised 911 immediatel y if these occur hip pain, ? bursitis quit smoking 2014, fall, still not smoking; pt commended - For now continue primidone 50 mg 3 tabs qhs and 50 mg 2 tabs qam-- Consider trial of propranolo l (she has pacemaker) - if LFTs continue to be elevated, may need to wean off primidone, and would consider a trial of Topamax or propranool -- counseled on anticipati on of progressio n and alternativ e tx options-- DBS previously discussed- q6 month CHEM7, CBC and folic acid per PCP- Back on ASA 81 mg but off Plavix due to GI bleed- still with easy bruising on Lovaza and ASA- Control of HTN - goal 120/80 or less - recommend she continue to monitor- Per Dr. Vigil, continue Lovaza, Lipitor at this time. But follow LFTs. Consider lower dose primidone if LFTs keep elevating. - could add proprnaolo l instead of morning dose of primidone- Again, recommend she start on CoQ10 100mg qam-- Counseled on benefits of CoQ10- add folic acid or MVA with folic acid daily -RTC 1 year Arterial embolism [id number] 02 I74.9 ophthalmic ; 2016 she has had no TIA or CVA sx since Essential hypertension 24290517 I10 goal BP < 120/80 Hyperlipidemia [id number] E78.5 switched from Crestor to Lipitor; also on Lovaza; LFTs are still up and they are still followingr ecommend she add CoQ10 200 mg qam - I've asked her to discuss primidone decreasing her dose due to elevated LFTs if signficant and could consider adding propranolo l for tremor- will ask that he checks CBC q6 months I spent an hour with the patient with greater than 50% in counseling regarding treatment options, vascular risk factors, medication side effects, importance of vitamin supplement s CC: Marcelo Vigil MD [id number] HERBERT ACOSTA PA-C [facility] CL[facility] [address] [place] [address] 06/17/2019 13:43:23 06/18/2019 14:25:23 Spinal meningioma [id number] D32.1 intraspina l thoracic tumor suspected to be a meningioma on the left at T11-12 which was incidental ly discovered after a lumbar myelogram was performed for low back pain in 2016. CT scan of the thoracic spine with contrast was evaluated showing no radiograph ic evidence of progressio n of the size of the tumor. We will continue to observe the tumor. She will follow-up in one year with a CT thoracic spine with contrast before. She does to call with any questions or concerns in the meantime. Low back pain [id number] M54.5 Low back and left hip pain with occasional paresthesi as in the anterior aspect of the left ankle and left Achilles. She can't get MRIs due to the pacemaker. Her CT myelogram of the lumbar spine from 09/2017 did not have any surgical recommenda tions. She has not been to pain management for injections into the back in over a year. She is to call us on how she would like to proceed whether it be with more imaging or another referral to pain management . The patient was seen and examined by Dr. Foster and myself. He agrees with the plan as stated above. [id number] PATRICIA LOPEZ MD NEUROLOGY [facility] CLOS[facility] [address] [facility],[address] [place] [id number] 07/08/2019 13:38:57 07/08/2019 14:54:24 Essential tremor [id number] G25.0 essential tremor- responding to primidone, improved with higher dose in 2017 but still c/o breakthrou gh tremor, mostly when she eats. We were hesistant to try back on proprnolol in the past because of heart rate, but no with pacemaker. She is on Exforge (amloidpin e 10 mg/valsart an 160 mg) daily, BP well controlled . Cannot exclude that adding propranolo l may drop BP. Pt so counseled. s/p pacemaker due to pulse in the 40s; improved energy CTS R>L, s/p release R, steroid injections L; responded well to injections ophthalmic stroke 2015; no recurrent TIA or stroke symptoms -- pt so counseled on various TIA/stroke symptoms and advised 911 immediatel y if these occur L hip pain, ? bursitis quit smoking 2014, fall, still not smoking; pt commended - Continue primidone 50 mg 3 tabs qhs and 50 mg 2 tabs qam- Add low dose propranolo l 10 mg 1-2 tabs for breakthrou gh tremor which she can take PRN or as tolerated, can titrate up to as high as 60 mg (1 tab bid-tid at first, then 2 tabs bid-tid and if she tolerated 60 mg daily for a month, she can call for propranolo l ER 60 mg tabs, 1 daily.- if LFTs continue to be elevated, may need to wean off primidone, and would consider a trial of Topamax or just propranolo l-- counseled on anticipati on of progressio n and alternativ e tx options-- DBS previously discussed- cotinue serial monitoring CHEM7, LFTs, CBC and folic acid per PCP- Back on ASA 81 mg but off Plavix due to GI bleed- still with easy bruising on Lovaza and ASA- Control of HTN - goal 120/80 or less - recommend she continue to monitor- Per Dr. Vigil, continue Lovaza, Lipitor at this time. But follow LFTs. Consider lower dose primidone if LFTs keep elevating. 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 ; 2016 she has had no TIA or CVA sx since Essential hypertension 01111949 I10 goal BP < 120/80 Hyperlipidemia 10092026 E78.5 Continue Lipitor and Lovaza; LFTs are still up and they are still following; previously was on Crestor- CoQ10 200 mg qam CC: Marcelo Vigil MD [id number] KAMRON ESPINAL PA-C [facility] [address] [place] [address] 05/19/2020 11:25:14 05/20/2020 10:24:27 Spinal meningioma [id number] D32.1 intraspina l thoracic tumor suspected to be a meningioma on the left at T11-12 which was incidental ly discovered after a lumbar myelogram was performed for low back pain in 2017. CT scan of the lumbar spine and x-rays of the lumbar spine were performed at [facility] were evaluated, showing no radiograph ic evidence of progressio n of the size of the tumor CT spine also did show mild scoliosis and diffuse spondylosi s. We will continue to observe the tumor. She will follow-up in one year with a CT thoracic/l umbar spine with contrast before.luc paulson was also given a physical therapy referral. She does know to call with any questions or concerns in the meantime.yennifer santos is agreeable to this plan. Low back pain [id number] M54.5 patient is a 80-year-ol d female who presents today for a one-year follow-up. Patient presents today with lumbar pain that is predominan tly midline and radiates to the right lumbar region. Patient also describes radiation of pain to the lateral aspect of bilateral hips. Patient does take some NSAIDs with no relief. Patient has not tried physical therapy or any other conservati ve therapies. [id number] PATRICIA LOPEZ MD NEUROLOGY [facility] CLOS[facility] [address] [facility],[address] [place] [id number] 07/13/2020 13:17:41 07/13/2020 14:49:36 Essential tremor [id number] G25.0 essential tremor- responding to primidone, improved with higher dose in 2017 but still c/o breakthrou gh tremor, mostly when she eats. Now also back on propranolo l 10 mg 2 tabs tid, tolerating well. She denies diabetes. No asthma, but she does have some emphysema. No cough. Tolerating propranolo l. She has a pacemaker due to pulse in the 40s; improved energy CTS R>L, s/p release R in 2018, and in L hand 02/03/2020; ophthalmic stroke 2015; no recurrent TIA or stroke symptoms -- pt so counseled on various TIA/stroke symptoms and advised 911 immediatel y if these occur L hip pain, ? bursitis quit smoking 2014, fall, still not smoking; pt commended - Continue primidone 50 mg 3 tabs qhs and 50 mg 2 tabs qam- Continue propranolo l 10 mg 2 tabs for breakthrou gh tremor which she can take PRN or as tolerated, will keep it at the immediate release formula so she can titrate up or down as needed. She has some extras if needed.- if LFTs continue to be elevated, may need to wean off primidone, and would consider a trial of Topamax or just propranolo l-- counseled on anticipati on of progressio n and alternativ e tx options-- DBS previously discussed- continue serial monitoring CHEM7, LFTs q3 mo and q6 mo CBC, intermitte nt vit D and B12- Back on ASA 81 mg but off Plavix due to GI bleed- still with easy bruising on Lovaza and ASA- Control of HTN < goal 130/80 or less - recommend she continue to monitor- Per Dr. Vigil, continue Lovaza, Lipitor at this time. But follow LFTs. Consider lower dose primidone if LFTs keep elevating. - Again, recommend CoQ10 100-200 mg qam -RTC 1 year [id number] PATRICIA LOPEZ MD NEUROLOGY [facility] [address] [place] [address] 07/13/2021 13:46:59 07/13/2021 15:22:47 Essential tremor [id number] G25.0 essential tremor- responding to primidone, improved with higher dose in 2016 but still c/o breakthrou gh tremor, mostly when she eats. Now also back on propranolo l 20 mg tid, tolerating well because she has a pacemaker She denies diabetes. No asthma, but she does have some emphysema. No cough. Tolerating propranolo l. She has a pacemaker due to pulse in the 40s; improved energy CTS R>L, s/p release R in 2018, and in L hand 02/03/2020; ophthalmic stroke 2015; no recurrent TIA or stroke symptoms -- pt so counseled on various TIA/stroke symptoms and advised 911 immediatel y if these occur L hip pain, ? bursitis quit smoking 2014, fall, still not smoking; pt commendedp rosa maria Jun 01, 2016 - Continue primidone 50 mg 3 tabs qhs and 50 mg 2 tabs qam- Continue propranolo l 20 mg tid (initially prescribed for breakthrou gh tremor, but taking tid scheduled) ; She is happy to keep medicine at current doses; We talked about switching to extended releast propranolo l 60 or 80 mg, but she is ok with what she has; She is free to experiment with the primidone 50 mg 1 or 2 tabs qam and 3 at bedtime.- she can call if she wants to switch the propranolo l to an extended release 60 or 80 mg- if LFTs continue to be elevated, may need to wean off primidone, and would consider a trial of Topamax or just propranolo l-- counseled on anticipati on of progressio n and alternativ e tx options-- DBS previously discussed- continue serial monitoring CHEM7, LFTs q3 mo and q6 mo CBC, intermitte nt vit D and B12- Back on ASA 81 mg but off Plavix due to GI bleed- still with easy bruising on Lovaza and ASA- Control of HTN < goal 130/80 or less - recommend she continue to monitor- Per Dr. Vigil, continue Lovaza, Lipitor at this time. But follow LFTs. Consider lower dose primidone if LFTs keep elevating. - Again, reminded to start CoQ10 100-200 mg qam - myrna since she is on a statin -RTC 1 year History of cerebrovascular accident [id number] Z86.73 counseled on vascualr risk factors, importance of tight control, importance of exercisean d I reviewed typical stroke syndromes- 911 for any signs/sx of stroke 41 min appt17 min evaluation 17 min counseling 7 min documentat ion [id number] BEATRIS RENDON, STAFF TOXICOLOGIST [facility] [address] [facility],[address] [place] [address] 04/17/2022 14:07:35 04/20/2022 17:16:50 Lumbar radiculopathy [id number] M54.16 HPI:Mrs. Nina Is an 81-year-ol d female who returns to the clinic with her after last being seen in April 2020 for increasing low back and left hip pain. She reports she has been dealing with the symptoms for several years and that they have been getting significan tly more problemati c for her. She has been using a cane with more regularity as she reports sometimes the pain in her left hip is so severe she feels like it could give out . She reports her pain is in her low back into her left hip and buttock she denies any symptoms extending from her hip to her tamayo however from the lower half of her tamayo into her foot she reports a altered sensation that at times is present. She says this activity is worse with standing or walking especially walking up inclines or uneven ground. It is relieved with sitting. In the past she has done physical therapy, chiropract ic, traction, massage, nonsteroid al anti-infla mmatories, and gabapentin . She reports she has worked with pain management in the past starting in 2017 where she has had epidural injections and SI injections with no improvemen t. She has been evaluated by orthopedic s to evaluate her hip and she reports that they have told her it was in fact not her hip but that it could be related to the changes they saw on her x-ray and her low back. She denies any bowel or bladder control loss. No new imaging available at this time. ASSESSMENT : Low back pain that radiates into the left hip and buttock. IMAGING:No new imaging available. Nurse practition er visit PLAN: CT myelogram of the lumbar spine Ms. Nina will move forward with having an updated CT myelogram of her lumbar spine, she reports the last one she remembers having was in 2018. She will return to the office thereafter to review these results. Based on the results of the studies we will discuss if she could benefit from continued conservati ve management or surgical evaluation . She is very hopeful that something can be done as she has limited her activities due to the pain she has in her left hip. Her and her verbalized understand ing of these instructio ns and are agreeable this plan. They have no further questions or concerns at this time. They are happy with this plan of care. [id number] JOSSELYN WILDE MD NEUROSURG [facility] CLOSED [address] [facility],[address] [place] [address] 05/15/2022 14:01:21 05/16/2022 14:41:05 Lumbar radiculopathy [id number] M54.16 Long discussion with her regarding the meningioma as well as her right radicular pattern of pain. The most severe radiograph ic finding is indeed at L5-S1. Her symptoms however do not correlate with this pattern of pain. I would like for her to undergo nerve conduction study. We both agree that the meningioma is not likely causing this pain. I will contact her after the results are available to us and we can discuss further management if any. She I've answered all her questions. She's happy with the management plan. [id number] JOSSELYN WILDE MD [facility] [address] [place] [address] 06/21/2022 09:15:12 06/22/2022 09:16:34 Lumbar radiculopathy [id number] M54.16 She has an L5-S1 listhesis and ongoing issues with left lower extremity pain. Her nerve conduction study demonstrat ed an L5 radiculopa thy. I've outlined the risks and benefits of the surgery and she is elected to proceed. We will get this scheduled and try to get this done an expedited fashion for her. I've counseled her on withholdin g all blood thinners including anti-infla mmatories. She has voiced her understand ing. [id number] JOSSELYN WILDE MD [facility] [address] [place] [address] 07/12/2022 10:46:14 07/13/2022 16:07:44 [id number] RAYMON SANCHEZ MD NEUROLOGY [facility] CL[facility] [address] [place] [address] 07/17/2022 13:53:05 07/18/2022 12:53:09 Essential tremor 241882932 G25.0 essential tremor overall her tremor has been doing fairly well but slightly worse recently.S he is on Mysoline 50 mg, 2 in the morning and 3 at night and immediate release propranolo l 20 mg 3 times a day.I ask which medicines worked the best and she was not sure.I told her in general propranolo l tends to work the best.I refilled her Mysoline.I recommende d changing her to propranolo l long-actin g 80 mg daily.I sent in refills for both medication s today. Arterial embolism 560724 02 I74.9 ophthalmic ; 2016She is not on ASA. I rec ASA 81 mg qd [id number] JOSSELYN WILDE MD [facility] [address] [place] [address] 08/02/2022 11:08:25 08/02/2022 15:56:16 Postoperative care [id number] Z48.89 Patient is doing very well at this time. We can wean her from her brace. She can increase her activity levels. We will get physical therapy to help with range of motion. I would like to see her back in 8 to 12 weeks to monitor her care. She knows to contact us sooner if any new issues should arise. [id number] JOSSELYN WILDE MD SURGERY SCHEDULE [address] [place] [address] 08/02/2022 11:09:38 04/25/2023 14:30:35 [id number] JOSSELYN WILDE MD [facility] [address] [place] [address] 10/11/2022 13:09:36 10/12/2022 04:05:34 Postoperative care [id number] Z48.89 Patient is doing very well at this time. She can increase her activity levels even further. I would like to see her 1 more time in 3 months with x-rays to continue to monitor her progress. She knows to contact us sooner if any new issues should arise. I did print out her x-rays for her viewing. [id number] JAISON FRITZ PA-C [facility] CLOSED [address] [place] [address] 01/08/2023 13:44:35 01/09/2023 04:26:18 History of lumbar fusion [id number] 9106 Z98.1 Spinal meningioma 591707 [id number] D32.1 [id number] MATHEW MUELLER MD NEUROLOGY [facility] CLOS[facility] [address] [place] [address] 01/19/2023 15:23:49 01/20/2023 04:11:37 Essential tremor 762185182 G25.0 [id number] JOSSELYN WILDE MD NEUROSURG [facility] CLOSED [address] [place] [address] 04/02/2023 13:36:29 04/03/2023 04:05:38 Spinal stenosis of thoracic region 55634773 M48.04 I discussed her results with her today. She has voiced her understand ing. She is not symptomati c from this lesion and refuses any surgical interventi on. We will continue to monitor it and see her back in one years time with imaging. She knows to contact us sooner if any new issues should arise. [id number] TESS BURRELL PA-C NEUROLOGY [facility] [address] [place] [address] 01/22/2024 13:14:03 01/23/2024 05:04:21 Essential tremor 770180087 G25.0 [id number] JOSSELYN WILDE MD [facility] CLOSED [address] [place] [id number] 05/05/2024 14:05:25 05/06/2024 04:25:53 Mass of thoracic vertebrae [id number] 40095 R29.898 I discussed her radiograph ic findings. It is stable in appearance and has not changed. We will see her again in 1 years time. She knows to contact us sooner if any new issues should arise. [id number] JAIRO HDZ MD NEUROLOGY [facility] CLOS[facility] [address] [place] [address] 06/03/2024 10:51:59 06/04/2024 16:24:31 Pain of right hip joint [id number] 89687 M25.551 Health Concerns Section Related Observation LastModified by Organization Detai ls LastModified Time None Recorded Concern Status LastModified by Organization Details LastModified Time None Recorded Advance Directives Directive None Recorded Payers Insurance Date Sequence Insurance Name Policy Number Policy Hoang Covered Member ID Hoang Member ID Guarantor Name 07/05/2018 2 [place] Tess Nina 07/18/2024 2 [place] Alon Nina [id number] Tess Nina 06/03/2024 1 [place] Tess Nina [id number] Tess Nina Notes Date Note Type Note Provider Name and Address Organization Details Recorded Time 01/19/2023 text/html 82-year-old james alexander presents for follow-up, history of essential tremor that was diagnosed back in 2011, she originally was treated with propranolol but had cardiac, subsequently was treated with primidone and did fairly well. After pacemaker placement patient has been on a combination of primidone and propranolol and is doing very well. She still notices a lot of tremulousness particularly when she tries to lift up heavy objects such as a bottle of milk, or a plate but really overall her handwriting has stayed stable and she has been doing well. She has really no complaints at this time. Blood pressure and pulse are good. Patient denies any significant side effects with medication. MATHEW MUELLER MD [address] [place] [address], [phone], [facility] 01/19/2023 16:49:04 04/02/2023 text/html 82 year old very pleasant woman s/p L5-S1 PLIF here today for continued follow up. She is doing very well. She has no radicular pain and no back pain. She is pleased with the results thus far. The patient also has a known T11-T12 suspected meningioma that has been followed on CT scan in the last several years and she is here today for surveillance imaging. Denies any lower extremity numbness saddle paresthesia or change in bowel bladder. I personally reviewed her thoracic CT scan with contrast which demonstrates stable appearing mass with severe cord displacement and central canal stenosis, no change in size. JOSSELYN WILDE MD [facility] [place], [address], [facility] 04/02/2023 20:43:13 01/22/2024 text/html 83 yo here today for 1y recheck on essential tremor. Last saw Dr. Mueller on 01/19/23: history of essential tremor that was diagnosed back in 2011, she originally was treated with propranolol but had cardiac, subsequently was treated with primidone and did fairly well. After pacemaker placement patient has been on a combination of primidone and propranolol and is doing very well. She still notices a lot of tremulousness particularly when she tries to lift up heavy objects such as a bottle of milk, or a plate but really overall her handwriting has stayed stable and she has been doing well. She has really no complaints at this time. Blood pressure and pulse are good. Patient denies any significant side effects with medication.primidone 50mg 2tab in am, 3tab qhspropranolol ER 80mg 1 daily writing can still be an issueL>RBut this is manageable.She is wondering if she needs to be on both the propranolol and the primidone- in the past when she was only on one or the other the tremor was alright. TESS BURRELL PA-C [facility] [place], [address], [facility] 01/22/2024 14:11:22 05/05/2024 text/html Patient is a pete y pleasant 84-year-old woman here today for continued follow-up with known calcified lesion within the thoracic spine. She did undergo an L5-S1 lumbar fusion performed in June 2022. She is done very well from this. We have been following this calcified mass yearly. She has no new neurosurgical complaints. Imaging: I personally reviewed her CT scan which demonstrated stable appearance of this calcified lesion JOSSELYN WILDE MD [facility] [place], [address], [facility] 05/05/2024 14:53:45 OBGyn Episode No OBEpisode recorded.
--- OUTSIDE RECORDS SUMMARY | 2025-03-16 10:04 | XMS_ITS | Encounter Summary ---
Author Organization [facility] Address [address] [place] [address] Care Team Providers Care Online Advertising Manager Name Role Phone Marcelo Vigil MD Primary Care Provider [phone] Encounter Details Date Type Department Care Team (Late st Contact Info) Description 03/16/2025 Telephone [facility] [address] [place] [address] Tommy Joyce MD [address] [place] [address] Social History Tobacco Use Types Packs/Day Years [...] or training? Not on file Preferred Language Andorran 01/08/2025 Comments No Sex and Gender Information Value Date Recorded Sex Assigned at Not on file Legal Sex Female 10:29 AM EDT Gender Identity Not on file Sexual Orientation Not on file documented as of this encounter Miscellaneous Notes * Telephone Encounter - Chucky Dobbins RegSchbenedict Rep - 03/16/2025 9:21 AM EDT Patient is calling regarding her surgery on January 21 on her left hip and she is experiencing what she sees as an infection in the incision spot. Please advise. documented in this encounter Plan of Treatment Upcoming Encounters Date Type Department Care Team (Late st Contact Info) Description 05/12/2025 2:30 PM EDT Office Visit [facility] [address] [place] [address] Tommy Joyce MD [address] [address] documented as of this encounter Goals Goal Patient Goal Type Associated Problems Recent Progress Patient-Stated? Author Autogenera kaushik Goal Care Plan Autogenerated Problem No Tommy Joyce MD documented as of this encounter Visit Diagnoses Not on filedocumented in this encounter Additional Health Concerns Active Problems Noted Date Diagnosed Date Autogenerated Problem 02/21/2025 documented as of this encounter Care Teams Online Advertising Manager Relationship Specialty Start Date End Date Marcelo Vigil MD [address] [place] [address] PCP - General 11/12/15 documented as of this encounter
== END 2025-03-14 23:59 | disposition home or self-care (01) ==
LOC: LAB.DROPOF 03-16 09:58
PROVIDERS: PCP Nurse Practitioner Family; Visit Provider Nurse Practitioner Family
DX: T14.8XXA Other injury of unspecified body region, initial encounter (principal)
CPT/HCPCS: 87070; 87077; 87186; 87205